=== PATIENT | male | born 1950 | race Caucasian/White ===

== ENCOUNTER 2016-07-05 17:17 | Emergency (ER) | payer BC, MEDICARE ==
[2016-07-05 17:53] VITALS: BP 112/64
--- NOTE | 2016-07-05 18:24 | UC ---
General HPI - HPI Summary HPI Summary: The patient comes in today for: 1. Somnolence, coughing, dizziness, feverish, "I fell down the stairs," vomiting, myalgia: Onset: yesterday. Palliative/provocative: Nothing. Quality: Ache Region: Genalized body aches. Severity: 3/10 Time: Constant. Associated symptoms: Diabetes: He is diabetic who states that his blood sugars have been "250." Home temperature: Not taken. Vomitin-4 times/24 hours. Diarrhea: None. Fall down stairs: He states now that he did not fall down the stairs--he fell next to the furniture. No LOC No headache. No neck pain. He does not know why he fell other than "being dizzy." He took a taxi here to see us. * - History of Current Complaint Chief Complaint: UCDizziness Stated Complaint: VOMITING,DIARRHEA,CHILLS Time Seen by Provider: 07/05/16 17:36 Hx Obtained From: Patient - Allergy/Home Medications Allergies/Adverse Reactions: Allergies Allergy/AdvReac Type Severity Reaction Status Date / Time Latex Allergy RASH, Verified 06/01/12 08:58 IRRITATION Meperidine [From Demerol HCl] AdvReac NIGHTMARES, Verified 08/27/15 06:10 CHILLS, SWEATS PMH/Surg Hx/FS Hx/Imm Hx Previously Healthy: No - "focus problems." Endocrine History Of: Reports: Diabetes - TYPE 1, Dyslipidemia Cardiovascular History Of: Reports: Cardiac Disorders - [place] x 2, quintuple bypass ([place]), Hypertension, Myocardial Infarction Denies: Pacemaker/ICD, Congestive Heart Failure, Atrial Fibrillation, Deep Vein Thrombosis, Bleeding Disorders Respiratory History Of: Denies: COPD, Asthma, Bronchitis, Pneumonia, Pulmonary Embolism GI/ History Of: Denies: Gastroesophageal Reflux, Ulcer, Gastrointestinal Bleed, Gall Bladder Disease, Kidney Stones, Diverticulitis, Renal Disease, Urosepsis Neurological History Of: Reports: CVA Denies: TIA, Dementia, Seizures, Migraine Psychological History Of: Reports: Anxiety, Depression Denies: Bipolar Disorder, Schizophrenia, Post Traumatic Stress Disorder Cancer History Of: Denies: Lung Cancer, Colorectal Cancer, Breast Cancer, Prostate Cancer, Cervical Cancer Other History Of: Negative For: HIV, Hepatitis B, Hepatitis C, Anticoagulant Therapy - Plavix. - Surgical History Surgical History: Yes Surgery Procedure, Year, and Place: 2009 LEFT KNEE ARTHROSCOPY-[facility]GER FINGER RELEASE/2006 CATARACT REPAIR,[facility]DE[facility], BYPASS SURGERY 30 YEARS AGO [facility]. BILATERAL CARPAL TUNNEL SURGERY, [facility]. 2010 LEFT KNEE ARTHROSCOPY, [facility]. 2010 LEFT EYE VITRECTOMY, [place] - Family History Known Family History: Positive: Cardiac Disease, Hypertension - Social History Occupation: Unemployed, Disabled Alcohol Use: None Substance Use Type: None Smoking Status (MU): Former Smoker Review of Systems Constitutional: Negative Skin: Negative Eyes: Negative ENT: Negative Respiratory: Negative Cardiovascular: Negative Gastrointestinal: Vomiting Genitourinary: Negative All Other Systems Reviewed And Are Negative: Yes Physical Exam Triage Information Reviewed: Yes Completion Of Physical Exam Limited Due To: Altered Mental Status - The patient is somnolent, but is able to carry on a conversation. However, he needs constant focusing to answer history questions. Appearance: Well-Appearing, No Pain Distress, Well-Nourished Vital Signs: Initial Vital Signs Temp 99.8 F 07/05/16 17:46 Pulse 101 07/05/16 17:46 Resp 16 07/05/16 17:46 BP 112/64 07/05/16 17:46 Pulse Ox 100 07/05/16 17:46 Vital Signs Reviewed: Yes Eyes: Positive: Conjunctiva Clear. Negative: Discharge ENT: Positive: Hearing grossly normal, Other: - Did not smell any acetone-like smell on breath.. Negative: Pharyngeal erythema, Nasal congestion, TM bulging, TM dull, TM red, Tonsillar swelling, Tonsillar exudate Dental: Negative: Gross Decay/Caries @, Dental Fracture @ Neck: Positive: Supple, Nontender, No Lymphadenopathy. Negative: Nuchal Rigidity Respiratory: Positive: Chest non-tender, Lungs clear, No respiratory distress, No accessory muscle use. Negative: Crackles, Wheezing Cardiovascular: Positive: RRR, No Murmur Abdomen Description: Positive: Nontender, No Organomegaly, Soft, Other: - Insulin pump present.. Negative: Distended, Guarding, Peritoneal Signs Musculoskeletal: Positive: Strength Intact, ROM Intact Neurological: Positive: Alert, Muscle Tone Normal Psychological: Positive: Age Appropriate Behavior, Consolable Skin: Negative: rashes, breakdown Diagnostics - Laboratory Diagnostic Studies Completed/Ordered: Random blood sugar (unmeasurable with our machine going up to 444). He is not able to give us a urine. Course/Dx - Differential Dx - Multi-Symptom Provider Diagnoses: Somnolence possibly related to metabolic causes (DKA vs hyperosmotic). Uncontrolled diabetes. Nausea/vomiting. - Physician Notifications Discussed Patient Care With: Brian Bonds. Time Discussed With Above Provider: 18:36 Discharge - Discharge Plan Condition: Stable Disposition: TRANS HIGHER LVL OF CARE FAC
== END 2016-07-05 19:14 | disposition short-term general hospital (02) ==
LOC: UCEAST 17:17
DX: R40.0 Somnolence (principal); R11.2 Nausea with vomiting, unspecified; E10.65 Type 1 diabetes mellitus with hyperglycemia; I25.2 Old myocardial infarction; I10 Essential (primary) hypertension; Z95.1 Presence of aortocoronary bypass graft; Z88.5 Allergy status to narcotic agent; Z98.49 Cataract extraction status, unspecified eye; Z87.891 Personal history of nicotine dependence
CPT/HCPCS: 99203; G0463

== ENCOUNTER 2016-07-05 19:09 | Inpatient (IN) | payer BC, MEDICARE ==
[2016-07-05] MEDS ORDERED: NS 0.9% 1000 ML* 1,000 ML IV ONE (19:59)
[2016-07-05] MEDS ORDERED: Insulin REGULAR(*) 1 UNITS UNIT IV ONE (19:59)
--- NOTE | 2016-07-05 20:25 | ED ---
Pedrito Arrieta Michael, scribed for Danilo Holcomb MD on 07/05/16 at 2003 . HPI Diabetic - HPI Summary HPI Summary: 66 y/o was BIBA to the ED presenting with hyperglycemia that started one day ago. The pt's was bedside and she reports that he had a blood glucose of over 400, and he has an Humalog insulin pump he regularly takes. He also c/o a cough, and has been around his daughter who was recently dx with influenza B. The PMHx is significant for DM. 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, Medical Records Onset/Duration: Sudden Onset Timing: Constant Severity Initially: Moderate Severity Currently: Mild Character: Alert Aggravating: Nothing Associated Signs & Symptoms: Cough - and hyperglycemia - Allergies/Home Medications Allergies/Adverse Reactions: Allergies Allergy/AdvReac Type Severity Reaction Status Date / Time Latex Allergy RASH, Verified 07/05/16 22:20 IRRITATION Meperidine [From Demerol HCl] AdvReac NIGHTMARES, Verified 07/05/16 22:20 CHILLS, SWEATS PMH/Surg Hx/FS Hx/Imm Hx Endocrine/Hematology History: Reports: Hx Diabetes - TYPE 1 Denies: Hx Anticoagulant Therapy - Plavix., Hx Thyroid Disease Cardiovascular History: Reports: Hx Angina, Hx Coronary Artery Disease, Hx Hypertension, Hx Myocardial Infarction, Other Cardiovascular Problems/Disorders - CAD/IDDM I Denies: Hx Congestive Heart Failure, Hx Deep Vein Thrombosis, Hx Pacemaker/ ICD Respiratory History: Denies: Hx Asthma, Hx Chronic Obstructive Pulmonary Disease (COPD), Hx Lung Cancer, Hx Pneumonia, Hx Pulmonary Embolism GI History: Denies: Hx Gall Bladder Disease, Hx Gastrointestinal Bleed, Hx Ulcer, Hx Urosepsis History: Denies: Hx Kidney Stones, Hx Renal Disease Musculoskeletal History: Reports: Other Musculoskeletal History - MENISCAL TEAR LEFT KN EE Sensory History: Reports: Hx Cataracts, Hx Contacts or Glasses - GLASSES Denies: Hx Hearing Aid Opthamlomology History: Reports: Hx Cataracts, Hx Contacts or Glasses - GLASSES Neurological History: Reports: Other Neuro Impairments/Disorders - TAKING RITALIN TO STAY FOCUS Denies: Hx Dementia, Hx Migraine, Hx Seizures, Hx Transient Ischemic Attacks (TIA) Psychiatric History: Reports: Hx Anxiety, Hx Depression Denies: Hx Panic Disorder, Hx Schizophrenia, Hx Bipolar Disorder - Surgical History Surgery Procedure, Year, and Place: 2009 LEFT KNEE ARTHROSCOPY-[facility]IGGER FINGER RELEASE/2006 CATARACT REPAIR,[facility] APPENDECTOM[facility], BYPASS SURGERY 30 YEARS AGO [facility]. BILATERAL CARPAL TUNNEL SURGERY, [facility]. 2009 LEFT KNEE ARTHROSCOPY, [facility]. 2010 LEFT EYE VITRECTOMY, [place] Hx Anesthesia Reactions: No Infectious Disease History: Reports: Hx Shingles - treated Denies: Hx Hepatitis, Hx Human Immunodeficiency Virus (HIV), Traveled Outside the in Last 30 Days - Family History Known Family History: Positive: Cardiac Disease, Hypertension - Social History Occupation: Retired Lives: With Family Alcohol Use: None Substance Use Type: Reports: None Hx Tobacco Use: Yes Smoking Status (MU): Former Smoker Review of Systems Positive: Other - hyperglycemia Positive: Cough All Other Systems Reviewed And Are Negative: Yes Physical Exam Triage Information Reviewed: Yes Vital Signs Reviewed: Yes Appearance: Positive: Ill-Appearing Skin: Positive: Warm, Dry Head/Face: Positive: Normal Head/Face Inspection Eyes: Positive: QUINTIN ENT: Positive: Hearing grossly normal Neck: Positive: Supple Respiratory/Lung Sounds: Positive: Clear to Auscultation, Breath Sounds Present Cardiovascular: Positive: Tachycardia Abdomen Description: Positive: Nontender, Soft Bowel Sounds: Positive: Present Musculoskeletal: Positive: Strength/ROM Intact Neurological: Positive: Sensory/Motor Intact, Alert, Oriented to Person Place, Time Psychiatric: Positive: Affect/Mood Appropriate Diagnostics - Laboratory Result Diagrams: 07/05/16 20:55 07/05/16 21:47 Lab Statement: Any lab studies that have been ordered have been reviewed, and results considered in the medical decision making process. - Radiology CXR Xray Interpretation: No Acute Changes Radiology Interpretation Completed By: Radiologist - EKG EK EKG Rhythm: Sinus Tachycardia - 100 bpm EKG Interpretation: LVH Re-Evaluation - Re-Evaluation First Eval Change: Improved Diabetic Course/Dx - Course Course Of Treatment: Discussed pt care with Dr. Torres (Hospitalist) at 2150. Pt is accepted as an admission. - Diagnoses Provider Diagnoses: DKA (diabetic ketoacidoses) - Physician Notifications Instructed by Provider To: Admit As Inpatient - Critical Care Time Critical Care Time: 30-74 min Discharge - Discharge Plan Condition: Fair Disposition: ADMITTED TO [facility] The documentation as recorded by the [email or web address] Michael accurately reflects the service I personally performed and the decisions made by me, Danilo Holcomb MD.
--- NOTE | 2016-07-05 20:45 | RAD ---
HISTORY: Chest pain COMPARISONS: August 27, 2015 VIEWS: 2: Frontal dual-energy and lateral views of the chest. FINDINGS: CARDIOMEDIASTINAL SILHOUETTE: The cardiomediastinal silhouette is normal. JELENA: The jelena are normal. PLEURA: The costophrenic angles are sharp. No pleural abnormalities are noted. LUNG PARENCHYMA: The lungs are clear. ABDOMEN: The upper abdomen is clear. There is no subphrenic gas. BONES AND SOFT TISSUES: The patient is status post median sternotomy OTHER: None. IMPRESSION: NO ACTIVE CARDIOPULMONARY DISEASE.
[2016-07-05 21:04] LABS: Hematocrit 38 % (42-52); Hemoglobin 12.1 g/dl (14.0-18.0); Mean Corpuscular HGB Conc 32 g/dl (31-36); Mean Corpuscular Hemoglobin 29 pg (27-31); Mean Corpuscular Volume 89 fL (80-94); Mean Platelet Volume 9 um3 (7.4-10.4); Red Blood Count 4.22 10^6/ul (4.0-5.4); Red Cell Distribution Width 14 % (10.5-15); White Blood Count 20.5 10^3/ul (3.5-10.8)
[2016-07-05 21:05] LABS: Add Diff/Slide Review? Manual Diff Added; Comments Flag Yes
[2016-07-05 21:08] LABS: Urine Bilirubin Negative (Negative); Urine Glucose 3+(>=500 mg/dL) (Negative); Urine Nitrite Negative (Negative)
[2016-07-05 21:55] LABS: Immature Granulocytes 9 % (0-9); Neutrophil % 86 % (38-83); RBC Morphology Normal (Normal)
[2016-07-05 21:55] LABS: PCO2 Arterial 21 mmHg (35-45)
[2016-07-05 22:08] LABS: Albumin 3.8 g/dL (3.2-5.2); BUN/Creatinine Ratio 26.7 (8-20); C Reactive Protein 22.95 mg/L (< 5.00); Calcium 8.5 mg/dL (8.6-10.3); EGFR African American 81.5 (>60); EGFR Non-African American 63.4 (>60); Globulin 1.9 g/dL (2-4); Magnesium 1.8 mg/dL (1.9-2.7); Total Bilirubin 0.7 mg/dL (0.2-1.0); Total Protein 5.7 g/dL (6.4-8.9)
[2016-07-05 22:39] LABS: Potassium 4.7 mmol/L (3.5-5.0)
--- NOTE | 2016-07-05 22:55 | HP ---
H&P (Free Text) History and Physical: PCP: Albert Chaudhary MD Date/Time of Evaluation: 07/05/2016 2255 CC: malaise, generalized weakness HPI: Mr Lloyd is a 66YO male HX IDDM [id number] who reports having had his influenza vaccine this season, but was exposed recently. He began feeling poorly last Tue- with increasing fatigue, generalized weakness, & malaise which progressed to subjective F/C over the weekend and culminated last night with a fall when he got up to use the restroom. He recalls falling & landing, denies head injury & LOC. He felt too weak and nauseous to get up and so slept on the floor. This AM he had an episode of emesis, but denies black or bloody content. His PO intake has been poor during this timeframe. He reports dry cough and SOB with coughing fits that resolves promptly afterwards, but no chest pain, palpitations, light-headedness, change in bowels, focal W/N/T, change in speech/swallow/vision, or other issues. He denies prior episode of DKA. Evaluation reveals DKA w/ pH 2.7, anion gap of 24, and serum CO2 of 12. WBCs are 20k 86% neutrophils & 9% bands. Creatinine is 1.16 (baseline 0.7). Corrected serum Na+ is 135. Lactic acid is 3.2. Mg++ is 1.8. UA is negative for infection. ECG and CXR are benign. PMedHx IDDM CAD/5vCABG CVA HTN HLD Allergies Latex Allergy (Verified 07/05/16 22:20) RASH, IRRITATION Meperidine [From Demerol HCl] Adverse Reaction (Verified 07/05/16 22:20) NIGHTMARES, CHILLS, SWEATS Ambulatory Orders Alprazolam [Xanax] 0.5 mg PO BEDTIME PRN 05/25/12 Aspirin 81 mg PO QAM 05/25/12 Atorvastatin* [Lipitor*] 20 mg PO QAM 05/25/12 Clopidogrel Bisulfate [Clopidogrel] 75 mg PO QAM 05/25/12 Diltiazem HCl Coated Beads [Diltiazem Cd] 240 mg PO QAM 05/25/12 Hydrochlorothiazide 50 mg PO QAM 05/25/12 Insulin Lispro [Humalog] 30 unit SUBCUT SEE INSTRUCTIONS 05/25/12 Methylphenidate HCl [Ritalin] 5 mg PO BID 05/25/12 Telmisartan [Micardis] 80 mg PO QAM 05/25/12 Venlafaxine CAP (NF) [Effexor CAP (NF)] 3 tab PO QAM 05/25/12 traMADol TAB* [Ultram*] 50 mg PO QID PRN 05/25/12 Cetirizine* [ZyrTEC*] 10 mg PO DAILY 08/27/15 Sertraline* [Zoloft*] 150 mg PO DAILY 08/27/15 diPHENhydraMINE PO* [Benadryl PO*] 25 mg PO QAM 08/27/15 PSurgHx OU cataract extractions 5vCABG appendectomy L knee arthroscopy SocHx: no tobacco, rare alcohol, no recreational drugs; lives with his ; full code status FamHx: positive for DM, HTN, HLD, CAD, CVA ROS: as above, otherwise reviewed and all were negative Constitutional: NAD, normally developed, well-nourished acutely ill appearing male vitals: Vital Signs Temp 37.8 C 07/05/16 20:42 Pulse 103 07/05/16 20:42 Resp 20 07/05/16 22:00 BP 114/48 07/05/16 21:30 Pulse Ox 98 07/05/16 20:42 Intake & Output 07/05/16 07/05/16 07/06/16 11:59 23:59 11:59 Intake Total 1000 Balance 1000 Weight 68.039 kg Intake: IV Fluids 1000 HEENM: atraumatic; sclera/conjunctiva: non-icteric/clear; hearing: clinically intact; oropharynx: clear, mucosa dry Neck: soft tissue: no nuchal rigidity; thyroid: normal Pulmonary: clear to auscultation bilaterally, good aeration, no accessory muscle use CV: TR/RR, normal S1S2, no carotid bruit, no jugular venous distention, 2+ L DP / 1+ RDP/1+ B PT, no edema Abdominal: soft, non-distended, non-tender, no rebound/guarding/rigidity, normoactive bowel sounds, no hepatosplenomegaly or masses, no costovertebral angle tenderness Musculoskeletal: general: moves extremities x4; gait: too acutely ill to safely ambulate Integumental: normal appearance and texture, poor turgor Psychiatric orientation: AA&O to PPS affect: acutely ill appearing mood: cooperative eye contact: fair content: reliable responses: mildly slowed insight: fair Testing: Lab Results 07/05/16 07/05/16 07/05/16 Range/Units 20:55 20:55 20:55 WBC 20.5 H (3.5-10.8) 10^3/ul RBC 4.22 (4.0-5.4) 10^6/ul Hgb 12.1 L (14.0-18.0) g/dl Hct 38 L (42-52) % MCV 89 (80-94) fL MCH 29 (27-31) pg MCHC 32 (31-36) g/dl RDW 14 (10.5-15) % Plt Count 246 (150-450) 10^3/ul MPV 9 (7.4-10.4) um3 Immature Gran % (Auto) 9 (0-9) % Absolute Neuts (auto) 19.1 H (1.5-7.7) 10^3/ul Absolute Lymphs (auto) 0.4 L (1.0-4.8) 10^3/ul Absolute Monos (auto) 0.9 H (0-0.8) 10^3/ul Absolute Eos (auto) 0 (0-0.6) 10^3/ul Absolute Basos (auto) 0.1 (0-0.2) 10^3/ul Absolute Nucleated RBC 0.01 10^3/ul Neutrophils % 86 H (38-83) % Band Neutrophils % 9 H (0-8) % Lymphocytes % 3 L (25-47) % Monocytes % 2 (0-13) % Normal RBC Morphology Normal (Normal) ABG pH (7.35-7.45) ABG pCO2 (35-45) mmHg ABG pO2 (80-100) mmHg ABG HCO3 (19-31) mmol/L ABG O2 Saturation (95-98) % ABG Base Excess (-2.0-2.0) Sodium (133-145) mmol/L Potassium (3.5-5.0) mmol/L Chloride (101-111) mmol/L Carbon Dioxide (22-32) mmol/L Anion Gap (2-11) mmol/L BUN (6-24) mg/dL Creatinine (0.67-1.17) mg/dL Est GFR ( Amer) (>60) Est GFR (Non-Af Amer) (>60) BUN/Creatinine Ratio (8-20) Glucose (70-100) mg/dL Lactic Acid 3.2 H* (0.5-2.0) mmol/L Calcium (8.6-10.3) mg/dL Magnesium (1.9-2.7) mg/dL Total Bilirubin (0.2-1.0) mg/dL AST (13-39) U/L ALT (7-52) U/L Alkaline Phosphatase (34-104) U/L C-Reactive Protein (< 5.00) mg/L Total Protein (6.4-8.9) g/dL Albumin (3.2-5.2) g/dL Globulin (2-4) g/dL Albumin/Globulin Ratio (1-3) Urine Color Yellow Urine Appearance Cloudy Urine pH 5.0 (5-9) Ur Specific [place] 1.018 (1.010-1.030) Urine Protein Negative (Negative) Urine Ketones 2+ H (Negative) Urine Blood Negative (Negative) Urine Nitrate Negative (Negative) Urine Bilirubin Negative (Negative) Urine Urobilinogen Negative (Negative) Ur Leukocyte Esterase Negative (Negative) Urine Glucose 3+(>=500 mg/dl) H (Negative) 07/05/16 07/05/16 Range/Units 21:45 21:47 WBC (3.5-10.8) 10^3/ul RBC (4.0-5.4) 10^6/ul Hgb (14.0-18.0) g/dl Hct (42-52) % MCV (80-94) fL MCH (27-31) pg MCHC (31-36) g/dl RDW (10.5-15) % Plt Count (150-450) 10^3/ul MPV (7.4-10.4) um3 Immature Gran % (Auto) (0-9) % Absolute Neuts (auto) (1.5-7.7) 10^3/ul Absolute Lymphs (auto) (1.0-4.8) 10^3/ul Absolute Monos (auto) (0-0.8) 10^3/ul Absolute Eos (auto) (0-0.6) 10^3/ul Absolute Basos (auto) (0-0.2) 10^3/ul Absolute Nucleated RBC 10^3/ul Neutrophils % (38-83) % Band Neutrophils % (0-8) % Lymphocytes % (25-47) % Monocytes % (0-13) % Normal RBC Morphology (Normal) ABG pH 7.20 L (7.35-7.45) ABG pCO2 21 L (35-45) mmHg ABG pO2 109 H (80-100) mmHg ABG HCO3 10.9 L (19-31) mmol/L ABG O2 Saturation 99.1 H (95-98) % ABG Base Excess -18.0 L (-2.0-2.0) Sodium 128 L (133-145) mmol/L Potassium 4.7 (3.5-5.0) mmol/L Chloride 92 L (101-111) mmol/L Carbon Dioxide 12 L* (22-32) mmol/L Anion Gap 24 H (2-11) mmol/L BUN 31 H (6-24) mg/dL Creatinine 1.16 (0.67-1.17) mg/dL Est GFR ( Amer) 81.5 (>60) Est GFR (Non-Af Amer) 63.4 (>60) BUN/Creatinine Ratio 26.7 H (8-20) Glucose 584 H* (70-100) mg/dL Lactic Acid (0.5-2.0) mmol/L Calcium 8.5 L (8.6-10.3) mg/dL Magnesium 1.8 L (1.9-2.7) mg/dL Total Bilirubin 0.70 (0.2-1.0) mg/dL AST 9 L (13-39) U/L ALT 16 (7-52) U/L Alkaline Phosphatase 74 (34-104) U/L C-Reactive Protein 22.95 H (< 5.00) mg/L Total Protein 5.7 L (6.4-8.9) g/dL Albumin 3.8 (3.2-5.2) g/dL Globulin 1.9 L (2-4) g/dL Albumin/Globulin Ratio 2.0 (1-3) Urine Color Urine Appearance Urine pH (5-9) Ur Specific [place] (1.010-1.030) Urine Protein (Negative) Urine Ketones (Negative) Urine Blood (Negative) Urine Nitrate (Negative) Urine Bilirubin (Negative) Urine Urobilinogen (Negative) Ur Leukocyte Esterase (Negative) Urine Glucose (Negative) ECG, personally reviewed: sinus tachycardia rate 100, no ischemia CXR, personally reviewed: IMPRESSION: NO ACTIVE CARDIOPULMONARY DISEASE. Impression: 66M presenting with DKA, likely precipitated by infection DIAGNOSIS & PLAN Primary DKA : ICU monitoring : check A1c : PO water only : insulin R 10unit IV bolus given in ED, start insulin GTT : close monitoring of electrolytes : Q1H glucometry : aggressive IVFs : telemetry : supplemental oxygen : supportive care infection, suspect viral : check rapid influenza : blood CX : empiric piperacillin/tazobactam fall, extended floor time : check total CK to evaluate for rhabdomyolysis Secondary CAD/5vCABG : continue aspirin & clopidogrel HX CVA : continue aspirin HTN : hold anti-hypertensives in current setting & monitor HLD : continue atorvastatin depression : continue venlafaxine & sertraline Admission Rational: ICU admission for DKA & suspected infection, inappropriate for outpatient setting DVTp: heparin SQ & SCDs Code Status: full HCP:
[2016-07-06] MEDS ORDERED: PROCHLORPERAZINE INJ 5 MG/ML 2 ML VIAL IV PRN (00:38)
[2016-07-06] MEDS ORDERED: Ondansetron INJ* 2 MG/ML VIAL IV PRN (00:38)
[2016-07-06] MEDS ORDERED: CMCS: Melatonin (NF) 3 MG TAB PO PRN (00:38)
[2016-07-06] MEDS ORDERED: NS 0.9% 1000 ML* 1,000 ML IV SCH (00:45)
[2016-07-06] MEDS: NS 0.9% 1000 ML* 3,000 ML IV SCH ×3 (00:50→03:01)
[2016-07-06] MEDS ORDERED: Piperac/Tazob 3.375 gm in NS* 3.375 GM/100 ML BAG IVPB ONE (01:30)
[2016-07-06] MEDS: Pantoprazole IV* 40 MG IV SCH ×2 (01:35→08:55)
[2016-07-06 02:30] LABS: Venous Bicarbonate HCO3 9.6 mmol/L (24-28)
[2016-07-06 02:37] LABS: Potassium 4.2 mmol/L (3.5-5.0)
[2016-07-06 02:38] LABS: BUN/Creatinine Ratio 29.3 (8-20); Calcium 7.7 mg/dL (8.6-10.3); EGFR African American 76.2 (>60); EGFR Non-African American 59.2 (>60)
[2016-07-06] MEDS: Acetaminophen TAB* 325 MG PO PRN (04:01)
[2016-07-06] MEDS ORDERED: Piperac/Tazob 3.375 gm in NS* 3.375 GM/100 ML BAG IVPB SCH (05:30)
[2016-07-06 06:48] LABS: Venous Bicarbonate HCO3 17.4 mmol/L (24-28)
[2016-07-06 06:53] LABS: Hematocrit 30 % (42-52); Hemoglobin 9.9 g/dl (14.0-18.0); Mean Corpuscular HGB Conc 33 g/dl (31-36); Mean Corpuscular Hemoglobin 29 pg (27-31); Mean Corpuscular Volume 87 fL (80-94); Mean Platelet Volume 8 um3 (7.4-10.4); Red Blood Count 3.47 10^6/ul (4.0-5.4); Red Cell Distribution Width 13 % (10.5-15); White Blood Count 15.4 10^3/ul (3.5-10.8)
[2016-07-06 07:02] LABS: BUN/Creatinine Ratio 31.3 (8-20); Calcium 7.4 mg/dL (8.6-10.3); EGFR African American 84.9 (>60); Magnesium 1.5 mg/dL (1.9-2.7); Potassium 3.4 mmol/L (3.5-5.0)
--- NOTE | 2016-07-06 07:39 | PN ---
Subjective - Subjective Reason for Note: Progress Note History: I reviewed Marck Rodríguez's presentation with the patient and Dr. Torres's admitting history and physical. He has had a cough for several days. He changed his insulin pump (he thinks) on Tuesday. He was weak and fell in the night and stayed on the floor. He presented with moderate diabetic ketoacidosis. He is receiving IVF (more than 5 liters thus far) and IV insulin. Influenza is ruled out. This morning he denies any pain. He continues to have a dry, non productive cough. He denies nausea and thinks he could eat/drink. He is no longer wearing his insulin pump. He has labile glycemic control, but his last A1c was 7.7%. He has no other acute illnesses at present - in particular no infections/ulcers. Active Problems: Active Problems Acute bronchitis (Acute) J20.9 Diabetic ketoacidosis (Acute) E13.10 Fall (Acute) Type 1 diabetes mellitus with diabetic retinopathy (Acute) E10.319 Coronary artery disease (Chronic) I25.10 Depression (Chronic) F32.9 Essential hypertension (Chronic) I10 History of CVA (cerebrovascular accident) (Chronic) Z86.73 Hypercholesterolemia (Chronic) E78.00 Insulin pump status (Chronic) Z96.41 S/P CABG x 5 (Chronic) Z95.1 Current Medications: Current Medications Acetaminophen (Tylenol Tab*) 650 mg PO Q6H PRN PRN Reason: FEVER/PAIN Last Admin: 07/06/16 04:01 Dose: 650 mg Aspirin (Aspirin Ec Low Dose*) 81 mg PO QAM [facility] Atorvastatin Calcium (Lipitor*) 20 mg PO QAM [facility] Clopidogrel Bisulfate (Plavix Tab*) 75 mg PO QAM [facility] Docusate Sodium (Colace Cap*) 200 mg PO BID [facility] Heparin Sodium (Porcine) (Heparin Vial(*)) 5,000 units SUBCUT Q8HR [facility] Sodium Chloride (Ns 0.9% 1000 Ml*) 3,000 mls @ 0 mls/hr IV WIDE OPEN [facility] PRN Reason: Wide Open Stop: 07/07/16 00:46 Last Admin: 07/06/16 03:01 Dose: 999 mls/hr Sodium Chloride (Ns 0.9% 1000 Ml*) 1,000 mls @ 250 mls/hr IV PER RATE [facility] Last Admin: 07/06/16 04:02 Dose: 250 mls/hr Piperacillin Sod/Tazobactam Sod (Zosyn 3.375 Gm In Ns Premix*) 3.375 gm in 100 mls @ 25 mls/hr IVPB Q8H [facility] Last Admin: 07/06/16 05:35 Dose: 25 mls/hr Insulin Human Regular 100 (units/ Sodium Chloride) 100 mls @ 6.8 mls/hr IV .PER INITIAL RATE [facility] PRN Reason: 0.1 UNITS/KG/HR Last Admin: 07/06/16 07:03 Dose: 13 mls/hr Melatonin (Melatonin (Nf)) 3 mg PO BEDTIME PRN; Protocol PRN Reason: Sleep Methylphenidate HCl (Ritalin Tab*) 5 mg PO 0900,1800 [facility] Ondansetron HCl (Zofran Inj*) 4 mg IV Q6H PRN PRN Reason: NAUSEA Pantoprazole Sodium (Protonix Iv*) 40 mg IV DAILY [facility] Last Admin: 07/06/16 01:35 Dose: 40 mg Prochlorperazine Edisylate (Compazine Inj*) 10 mg IV Q6H PRN PRN Reason: NAUSEA Sertraline HCl (Zoloft*) 150 mg PO DAILY [facility] Tramadol HCl (Ultram*) 50 mg PO QID PRN PRN Reason: PAIN - MODERATE Venlafaxine HCl (Effexor Xr Cap*) 225 mg PO QAM [facility] PRN Reason: Protocol - Review of Systems Constitutional Symptoms: Yes: Fatigue, No: Fever Pulmonary: Positive: Cough Negative: Sputum, Hemoptysis, Respiratory Distress Cardiology: Negative: Chest Pain, Palpitations, Swelling of Ankles Gastroenterology: Positive: Constipation Negative: Abdominal Pain, Nausea, Vomiting Genital - Urinary: Positive: Polyuria Negative: Dysuria Home Medications: Home Medications Medication Instructions Recorded Confirmed Type Alprazolam [Xanax] 0.5 mg PO BEDTIME PRN 05/25/12 07/05/16 History Aspirin 81 mg PO QAM 05/25/12 07/05/16 History Atorvastatin* [Lipitor*] 20 mg PO QAM 05/25/12 07/05/16 History Clopidogrel Bisulfate [Clopidogrel] 75 mg PO QAM 05/25/12 07/05/16 History Diltiazem HCl Coated Beads 240 mg PO QAM 05/25/12 07/05/16 History [Diltiazem Cd] Hydrochlorothiazide 50 mg PO QAM 05/25/12 07/05/16 History Insulin Lispro [Humalog] 30 unit SUBCUT SEE INSTRUCTIONS 05/25/12 07/05/16 History Methylphenidate HCl [Ritalin] 5 mg PO BID 05/25/12 07/05/16 History Telmisartan [Micardis] 80 mg PO QAM 05/25/12 07/05/16 History Venlafaxine CAP (NF) [Effexor CAP 3 tab PO QAM 05/25/12 07/05/16 History (NF)] traMADol TAB* [Ultram*] 50 mg PO QID PRN 05/25/12 07/05/16 History Cetirizine* [ZyrTEC*] 10 mg PO DAILY 08/27/15 07/05/16 History Sertraline* [Zoloft*] 150 mg PO DAILY 08/27/15 07/05/16 History diPHENhydraMINE PO* [Benadryl PO*] 25 mg PO QAM 08/27/15 07/05/16 History Allergies: Allergies Allergy/AdvReac Type Severity Reaction Status Date / Time Latex Allergy RASH, Verified 07/05/16 22:20 IRRITATION Meperidine [From Demerol HCl] AdvReac NIGHTMARES, Verified 07/05/16 22:20 CHILLS, SWEATS Objective - Vital Signs Vital Signs: Vital Signs 07/05/16 07/06/16 07/06/16 23:49 00:00 00:01 Temperature 100.1 F Pulse Rate 100 Respiratory 21 21 22 Rate Blood Pressure 106/40 80/52 (mmHg) O2 Sat by Pulse 100 Oximetry 07/06/16 07/06/16 07/06/16 00:02 00:18 00:34 Temperature Pulse Rate 98 Respiratory 27 19 Rate Blood Pressure 104/49 86/47 106/40 (mmHg) O2 Sat by Pulse 100 Oximetry 07/06/16 07/06/16 07/06/16 00:45 01:00 01:04 Temperature Pulse Rate 102 106 Respiratory 20 22 21 Rate Blood Pressure 107/43 119/46 (mmHg) O2 Sat by Pulse 100 100 Oximetry 07/06/16 07/06/16 07/06/16 01:15 01:30 01:45 Temperature Pulse Rate 103 105 107 Respiratory 23 25 22 Rate Blood Pressure 119/61 111/82 113/49 (mmHg) O2 Sat by Pulse 100 100 100 Oximetry 07/06/16 07/06/16 07/06/16 02:00 02:15 02:30 Temperature Pulse Rate 107 104 102 Respiratory 20 22 23 Rate Blood Pressure 116/47 121/51 106/48 (mmHg) O2 Sat by Pulse 100 100 100 Oximetry 07/06/16 07/06/16 07/06/16 02:45 03:00 03:30 Temperature Pulse Rate 101 98 98 Respiratory 21 18 21 Rate Blood Pressure 97/41 101/60 105/49 (mmHg) O2 Sat by Pulse 100 100 100 Oximetry 07/06/16 07/06/16 07/06/16 04:00 04:30 05:00 Temperature 101.1 F Pulse Rate 97 95 95 Respiratory 22 21 18 Rate Blood Pressure 105/44 99/44 94/42 (mmHg) O2 Sat by Pulse 100 100 98 Oximetry 07/06/16 07/06/16 07/06/16 05:30 06:00 07:00 Temperature Pulse Rate 95 94 94 Respiratory 20 14 18 Rate Blood Pressure 100/47 100/47 97/42 (mmHg) O2 Sat by Pulse 99 97 98 Oximetry 07/06/16 07:29 Temperature 100.1 F Pulse Rate Respiratory Rate Blood Pressure (mmHg) O2 Sat by Pulse Oximetry - Intake and Output Intake and Output: Intake & Output 07/03/16 07/04/16 07/05/16 07/06/16 11:59 11:59 11:59 11:59 Intake Total 4015 Balance 4015 Weight 150 lb 9.211 oz Intake: IV Fluids 3404 NS (0.9%) 3380 NS KVO 24 IVPB 100 NS KVO 100 Medicated IV 71 CC - Insulin 71 Oral 440 Intake and Output Start: 07/05/16 23: 49 Freq: 06,14,22 Status: Active Document 07/06/16 06:00 [id number] (Rec: 07/06/16 06:12 [id number]) - Physical Exam General: No Cyanosis, Yes Anemia, No Jaundice, No Lymphadenopathy, No Clubbing Eye Exam: bilateral: EOMI Lungs and Chest: Yes: Chest Expansion Full, Chest Expansion Symetrica, Percussion Note Resonant, Vessicular Breath Sounds, Other - Paroxysmal, dry "barking" cough. No: Crackles, Wheezes, Respiratory Distress, Use of Accessory Muscles Heart Rate and Rhythm: Regular JVP: Elevated - +6 c, Additional Cardiovascular: Yes: Normal Heart Sounds, Present Pedal Pulse. No: Heart Murmur, Pedal Edema Abdominal Exam: Yes: Soft, Bowel Sounds Present - diminished. No: Distention, Rigidity, Abdominal Mass, Hepatomegaly, Abdominal Tenderness - Extremities Cranial Nerves II-XII Intact: Yes Limbs: Normal Power, Normal Tone - Neuro Orientation: A/O x3 Speech: Normal - Slow, but able to express himself Results - Results Lab Results: Laboratory Results - last 24 hr 07/06/16 07/06/16 07/06/16 00:31 00:36 01:04 WBC RBC Hgb Hct MCV MCH MCHC RDW Plt Count MPV Neut % (Auto) Lymph % (Auto) [place] % (Auto) Eos % (Auto) Baso % (Auto) Absolute Neuts (auto) Absolute Lymphs (auto) Absolute Monos (auto) Absolute Eos (auto) Absolute Basos (auto) Absolute Nucleated RBC Nucleated RBC % VBG pH VBG pCO2 VBG pO2 VBG HCO3 VBG O2 Saturation VBG Base Excess Sodium Potassium Chloride Carbon Dioxide Anion Gap BUN Creatinine Est GFR ( Amer) Est GFR (Non-Af Amer) BUN/Creatinine Ratio Glucose 627 H* POC Glucose (mg/dL) > 444 H* Lactic Acid Calcium Magnesium Influenza A (Rapid) Negative Influenza B (Rapid) Negative 07/06/16 07/06/16 07/06/16 02:05 02:09 02:10 WBC RBC Hgb Hct MCV MCH MCHC RDW Plt Count MPV Neut % (Auto) Lymph % (Auto) [place] % (Auto) Eos % (Auto) Baso % (Auto) Absolute Neuts (auto) Absolute Lymphs (auto) Absolute Monos (auto) Absolute Eos (auto) Absolute Basos (auto) Absolute Nucleated RBC Nucleated RBC % VBG pH 7.12 L VBG pCO2 27 L VBG pO2 37 VBG HCO3 9.6 L VBG O2 Saturation 74.6 VBG Base Excess -19.1 L Sodium Potassium Chloride Carbon Dioxide Anion Gap BUN Creatinine Est GFR ( Amer) Est GFR (Non-Af Amer) BUN/Creatinine Ratio Glucose POC Glucose (mg/dL) > 444 H* Lactic Acid 5.0 H* Calcium Magnesium Influenza A (Rapid) Influenza B (Rapid) 07/06/16 07/06/16 07/06/16 02:11 03:06 03:10 WBC RBC Hgb Hct MCV MCH MCHC RDW Plt Count MPV Neut % (Auto) Lymph % (Auto) [place] % (Auto) Eos % (Auto) Baso % (Auto) Absolute Neuts (auto) Absolute Lymphs (auto) Absolute Monos (auto) Absolute Eos (auto) Absolute Basos (auto) Absolute Nucleated RBC Nucleated RBC % VBG pH VBG pCO2 VBG pO2 VBG HCO3 VBG O2 Saturation VBG Base Excess Sodium 131 L Potassium 4.2 Chloride 98 L Carbon Dioxide 8 L* Anion Gap 25 H BUN 36 H Creatinine 1.23 H Est GFR ( Amer) 76.2 Est GFR (Non-Af Amer) 59.2 BUN/Creatinine Ratio 29.3 H Glucose 509 H* 452 H POC Glucose (mg/dL) > 444 H* Lactic Acid Calcium 7.7 L Magnesium Influenza A (Rapid) Influenza B (Rapid) 07/06/16 07/06/16 07/06/16 04:14 05:00 06:00 WBC RBC Hgb Hct MCV MCH MCHC RDW Plt Count MPV Neut % (Auto) Lymph % (Auto) [place] % (Auto) Eos % (Auto) Baso % (Auto) Absolute Neuts (auto) Absolute Lymphs (auto) Absolute Monos (auto) Absolute Eos (auto) Absolute Basos (auto) Absolute Nucleated RBC Nucleated RBC % VBG pH VBG pCO2 VBG pO2 VBG HCO3 VBG O2 Saturation VBG Base Excess Sodium 133 Potassium 3.4 L Chloride 104 Carbon Dioxide 18 L Anion Gap 11 BUN 35 H Creatinine 1.12 Est GFR ( Amer) 84.9 Est GFR (Non-Af Amer) 66.0 BUN/Creatinine Ratio 31.3 H Glucose 330 H POC Glucose (mg/dL) 418 H* 395 H Lactic Acid Calcium 7.4 L Magnesium 1.5 L Influenza A (Rapid) Influenza B (Rapid) 07/06/16 07/06/16 07/06/16 06:00 06:00 06:00 WBC 15.4 H RBC 3.47 L Hgb 9.9 L Hct 30 L MCV 87 MCH 29 MCHC 33 RDW 13 Plt Count 168 MPV 8 Neut % (Auto) 85.3 H Lymph % (Auto) 7.8 L [place] % (Auto) 6.8 Eos % (Auto) 0 Baso % (Auto) 0.1 Absolute Neuts (auto) 13.2 H Absolute Lymphs (auto) 1.2 Absolute Monos (auto) 1.1 H Absolute Eos (auto) 0 Absolute Basos (auto) 0 Absolute Nucleated RBC 0.01 Nucleated RBC % 0 VBG pH 7.29 L VBG pCO2 34 L VBG pO2 51 H VBG HCO3 17.4 L VBG O2 Saturation 91.0 H VBG Base Excess -9.4 L Sodium Potassium Chloride Carbon Dioxide Anion Gap BUN Creatinine Est GFR ( Amer) Est GFR (Non-Af Amer) BUN/Creatinine Ratio Glucose POC Glucose (mg/dL) Lactic Acid 2.8 H* Calcium Magnesium Influenza A (Rapid) Influenza B (Rapid) 07/06/16 07/06/16 06:03 07:07 WBC RBC Hgb Hct MCV MCH MCHC RDW Plt Count MPV Neut % (Auto) Lymph % (Auto) [place] % (Auto) Eos % (Auto) Baso % (Auto) Absolute Neuts (auto) Absolute Lymphs (auto) Absolute Monos (auto) Absolute Eos (auto) Absolute Basos (auto) Absolute Nucleated RBC Nucleated RBC % VBG pH VBG pCO2 VBG pO2 VBG HCO3 VBG O2 Saturation VBG Base Excess Sodium Potassium Chloride Carbon Dioxide Anion Gap BUN Creatinine Est GFR ( Amer) Est GFR (Non-Af Amer) BUN/Creatinine Ratio Glucose POC Glucose (mg/dL) 362 H 300 H Lactic Acid Calcium Magnesium Influenza A (Rapid) Influenza B (Rapid) Radiology Results: Patient Name: MARCK TORRES Medical Record#: [id number] Ordering Physician: Danilo Holcomb MD Acct.#: [id number] : 1950 Age: 66 Sex: M Location: EMERGENCY DEPARTMENT Exam Date: 07/05/161999 ADM Status: REG ER Order Information: CHEST PA & LAT 2 VWS Accession Number: [id number] CPT: 31191 HISTORY: Chest pain COMPARISONS: August 27, 2015 VIEWS: 2: Frontal dual-energy and lateral views of the chest. FINDINGS: CARDIOMEDIASTINAL SILHOUETTE: The cardiomediastinal silhouette is normal. FAROOQ: The farooq are normal. PLEURA: The costophrenic angles are sharp. No pleural abnormalities are noted. LUNG PARENCHYMA: The lungs are clear. ABDOMEN: The upper abdomen is clear. There is no subphrenic gas. BONES AND SOFT TISSUES: The patient is status post median sternotomy OTHER: None. IMPRESSION: NO ACTIVE CARDIOPULMONARY DISEASE. <Electronically signed by Jose Angel Kemp MD in OV> 07/05/162040 Dictated By: Jose Angel Kemp MD Dictated Date/Time: 07/05/162040 Transcribed Date/Time: 07/05/162040 Copy to: CC:Jason Chaudhary MD; Danilo Holcomb MD Imaging - [facility] - [facility] [address] [place] [address] ph [phone]) ph ([phone]) ph ([phone]) 1 of EKG Report: 07/05/16 21:05 SR 100 MD 155 QTc 439 QRS axis Low voltage limb leads. No acute STT changes Assessment - Problem List Assessment: Patient Problems Acute bronchitis (Acute) Diabetic ketoacidosis (Acute) Fall (Acute) Type 1 diabetes mellitus with diabetic retinopathy (Acute) Coronary artery disease (Chronic) Depression (Chronic) Essential hypertension (Chronic) History of CVA (cerebrovascular accident) (Chronic) Hypercholesterolemia (Chronic) Insulin pump status (Chronic) S/P CABG x 5 (Chronic) Plan: Type 1 diabetes mellitus with diabetic retinopathy (Acute)Diabetic ketoacidosis (Acute) Insulin pump status (Chronic) He likely has 2 factors accounting for his presentation - a viral bronchitis and an insulin pump infusion set malfunction. He is now recovering from his DKA, but he remains hyperglycemic and mildly acidotic. His JVP is now visible, but he remains hypotensive. We will need to watch for volume overload as he is likely to develop CHF readily. He states he is able to eat/drink. Insulin pump basal rates: Medtronic 523 insulin pump settings: basal rate (u/hr) 12 am -.75 9am 0.925 ins:CHO 12am 8 7am 7 12pm 8 ISF 50 target day 100 to 120 night 100 to 150 ins dur 4 hrs He doesn't have his insulin pump infusion sets/reservoirs with him. 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 Acute bronchitis (Acute) I think this is viral. He has no infiltrates on his CXR. His CRP is not elevated. I don't think he requires antibacterials. I will stop his piperacillin/tazobactam. I will follow his CRP/WBC Fall (Acute) He has hematomas, but no evidence of fractures/pain. He was on the floor overnight. His CK was not elevated, making rhabdomyolysis unlikely Coronary artery disease (Chronic) He has no signs clinically/EKG of an acute ischemic process Depression (Chronic) ongoing Essential hypertension (Chronic) He is hypotensive at present. History of CVA (cerebrovascular accident) (Chronic) Hypercholesterolemia (Chronic) secondary diagnosis S/P CABG x 5 (Chronic) secondary diagnosis I discussed the management plan with the patient, his RN and Elisa, his . She will bring his infusion sets/reservoirs
[2016-07-06] MEDS ORDERED: Insulin GLARGINE(*) 1 UNITS UNIT SUBCUT SCH (08:00)
[2016-07-06] MEDS ORDERED: Dextrose 50% Syringe 50 ML* 25 GM/50 ML SYRINGE IV PUSH PRN (08:03)
--- NOTE | 2016-07-06 08:33 | RAD ---
INDICATION: Cough COMPARISON: Most recent comparison chest x-rays dated July 05, 2016 TECHNIQUE: Single AP portable view of the chest was obtained. FINDINGS: Image quality is compromised due to the relative inferiority of a portable chest x-ray. Stable postoperative findings include sternotomy wires and surgical clips overlying the left upper mediastinum. The heart and mediastinum exhibit normal size and contour. The lungs are grossly clear. There is no evidence of a large pleural effusion. Visualized bones are normal for the patient's age. IMPRESSION: No radiographic evidence for acute cardiopulmonary abnormality on this portable chest x-ray.
[2016-07-06] MEDS: Venlafaxine EXT RELEASE CAP* 75 MG PO SCH (08:54)
[2016-07-06] MEDS: Atorvastatin* 20 MG TAB PO SCH (08:54)
[2016-07-06] MEDS: Clopidogrel TAB* 75 MG PO SCH (08:54)
[2016-07-06] MEDS: Aspirin EC Low Dose* 81 MG TAB.EC PO SCH (08:54)
[2016-07-06] MEDS: Methylphenidate TAB* 5 MG PO SCH ×2 (08:55→19:06)
[2016-07-06] MEDS: Sertraline* 50 MG TAB PO SCH (08:55)
[2016-07-06] MEDS: Docusate CAP* 100 MG PO SCH ×2 (09:06→21:08)
[2016-07-06] MEDS: Insulin LISPRO* 1 UNITS UNIT SUBCUT SCH ×7 (09:53→21:09)
[2016-07-06] MEDS: Dextrose 50% Syringe 50 ML* 25 GM/50 ML SYRINGE IV PUSH PRN ×2 (18:03→19:42)
[2016-07-06] MEDS ORDERED: Magnesium Sulfate 2 GM IV IVPB ONE (18:53)
[2016-07-06] MEDS: Potassium Chlor TAB* 20 MEQ TAB.ER PO SCH (21:08)
[2016-07-06] MEDS: traMADol TAB* 50 MG PO PRN (21:09)
[2016-07-06] MEDS ORDERED: D5NS 0.9% 1000 ML BAG* 1,000 ML IV SCH (23:00)
[2016-07-07] MEDS: Acetaminophen TAB* 325 MG PO PRN ×2 (00:06→20:13)
[2016-07-07] MEDS ORDERED: Acetaminophen TAB* 325 MG PO PRN (00:21)
[2016-07-07] MEDS: Potassium Chlor TAB* 20 MEQ TAB.ER PO SCH (00:26)
[2016-07-07] MEDS: Piperac/Tazob 3.375 gm in NS* 3.375 GM/100 ML BAG IVPB SCH ×4 (00:33→19:41)
[2016-07-07 00:41] LABS: BUN/Creatinine Ratio 38.8 (8-20); Calcium 7.9 mg/dL (8.6-10.3); EGFR African American 116.7 (>60); EGFR Non-African American 90.7 (>60); Potassium 3.6 mmol/L (3.5-5.0)
[2016-07-07 00:44] LABS: Hematocrit 33 % (42-52); Hemoglobin 11.2 g/dl (14.0-18.0); Mean Corpuscular HGB Conc 34 g/dl (31-36); Mean Corpuscular Hemoglobin 29 pg (27-31); Mean Corpuscular Volume 87 fL (80-94); Mean Platelet Volume 8 um3 (7.4-10.4); Red Blood Count 3.84 10^6/ul (4.0-5.4); Red Cell Distribution Width 13 % (10.5-15); White Blood Count 13.5 10^3/ul (3.5-10.8)
[2016-07-07 00:58] LABS: Magnesium 2.1 mg/dL (1.9-2.7)
[2016-07-07] MEDS: Azithromycin IV(*) 500 MG in NS 0.9% 250 ML* 250 ML IVPB SCH (01:32)
[2016-07-07 06:34] LABS: Hematocrit 32 % (42-52); Hemoglobin 10.6 g/dl (14.0-18.0); Mean Corpuscular HGB Conc 33 g/dl (31-36); Mean Corpuscular Hemoglobin 29 pg (27-31); Mean Corpuscular Volume 86 fL (80-94); Mean Platelet Volume 8 um3 (7.4-10.4); Red Cell Distribution Width 13 % (10.5-15); White Blood Count 17.1 10^3/ul (3.5-10.8)
[2016-07-07 06:45] LABS: BUN/Creatinine Ratio 34.6 (8-20); C Reactive Protein 35.09 mg/L (< 5.00); Calcium 7.7 mg/dL (8.6-10.3); EGFR African American 128.9 (>60); EGFR Non-African American 100.2 (>60); Magnesium 2.1 mg/dL (1.9-2.7); Potassium 3.8 mmol/L (3.5-5.0)
--- NOTE | 2016-07-07 07:43 | PN ---
Subjective - Subjective Reason for Note: Progress Note History: He developed a fever overnight and his glucose started to rise - hence an IV insulin infusion was started. This morning he is alert. He has had a delirium overnight - he is convinced is daughter is in the ICU in another bed. He denies any pain. He continues to have have a dry, paroxysmal cough. He managed to eat and drink yesterday. He denies headache/neck stiffness. Active Problems: Active Problems Acute bronchitis (Acute) J20.9 Delirium (Acute) R41.0 Diabetic ketoacidosis (Acute) E13.10 Fall (Acute) Lung infiltrate (Acute) R91.8 Type 1 diabetes mellitus with diabetic retinopathy (Acute) E10.319 Coronary artery disease (Chronic) I25.10 Depression (Chronic) F32.9 Essential hypertension (Chronic) I10 History of CVA (cerebrovascular accident) (Chronic) Z86.73 Hypercholesterolemia (Chronic) E78.00 Insulin pump status (Chronic) Z96.41 S/P CABG x 5 (Chronic) Z95.1 Current Medications: Current Medications Acetaminophen (Tylenol Tab*) 650 mg PO Q6H PRN PRN Reason: FEVER/PAIN Last Admin: 07/07/16 00:06 Dose: 650 mg Acetaminophen (Tylenol Tab*) 650 mg PO Q4H PRN PRN Reason: FEVER Aspirin (Aspirin Ec Low Dose*) 81 mg PO [facility] Last Admin: 07/06/16 08:54 Dose: 81 mg Atorvastatin Calcium (Lipitor*) 20 mg PO [facility] Last Admin: 07/06/16 08:54 Dose: 20 mg Clopidogrel Bisulfate (Plavix Tab*) 75 mg PO [facility] Last Admin: 07/06/16 08:54 Dose: 75 mg Dextrose (D50w Syringe 50 Ml*) 12.5 gm IV PUSH .FOR FS < 60 - SS PRN PRN Reason: FS < 60 Last Admin: 07/06/16 19:42 Dose: 12.5 gm Docusate Sodium (Colace Cap*) 200 mg PO BID [facility] Last Admin: 07/06/16 21:08 Dose: 200 mg Heparin Sodium (Porcine) (Heparin Vial(*)) 5,000 units SUBCUT Q8HR [facility] Insulin Human Regular 100 (units/ Sodium Chloride) 100 mls @ 1 mls/hr IV PER RATE [facility]; 1 UNITS/HR PRN Reason: Protocol Dextrose/Sodium Chloride (D5ns 0.9% 1000 Ml Bag*) 1,000 mls @ 100 mls/hr IV PER RATE [facility] Piperacillin Sod/Tazobactam Sod (Zosyn 3.375 Gm In Ns Premix*) 3.375 gm in 100 mls @ 200 mls/hr IVPB Q6H [facility] Last Admin: 07/07/16 06:54 Dose: 200 mls/hr Azithromycin 500 mg/ Sodium (Chloride) 250 mls @ 250 mls/hr IVPB Q24H [facility] Last Admin: 07/07/16 01:32 Dose: 250 mls/hr Insulin Human Lispro (Humalog*) 1 units SUBCUT FS ACHS ICU [facility] PRN Reason: Protocol Last Admin: 07/06/16 20:58 Dose: Not Given Insulin Human Lispro (Humalog*) 0 units SUBCUT ACHS [facility] PRN Reason: Protocol Last Admin: 07/06/16 21:09 Dose: Not Given Melatonin (Melatonin (Nf)) 3 mg PO BEDTIME PRN; Protocol PRN Reason: Sleep Methylphenidate HCl (Ritalin Tab*) 5 mg PO 0900,1800 [facility] Last Admin: 07/06/16 19:06 Dose: 5 mg Ondansetron HCl (Zofran Inj*) 4 mg IV Q6H PRN PRN Reason: NAUSEA Pantoprazole Sodium (Protonix Iv*) 40 mg IV DAILY [facility] Last Admin: 07/06/16 08:55 Dose: 40 mg Prochlorperazine Edisylate (Compazine Inj*) 10 mg IV Q6H PRN PRN Reason: NAUSEA Sertraline HCl (Zoloft*) 150 mg PO DAILY [facility] Last Admin: 07/06/16 08:55 Dose: 150 mg Tramadol HCl (Ultram*) 50 mg PO QID PRN PRN Reason: PAIN - MODERATE Last Admin: 07/06/16 21:09 Dose: 50 mg Venlafaxine HCl (Effexor Xr Cap*) [facility] Reason: Protocol Last Admin: 07/06/16 08:54 Dose: 225 mg Home Medications: Home Medications Medication Instructions Recorded Confirmed Type Alprazolam [Xanax] 0.5 mg PO BEDTIME PRN 05/25/12 07/05/16 History Aspirin 81 mg PO QAM 05/25/12 07/05/16 History Atorvastatin* [Lipitor*] 20 mg PO QAM 05/25/12 07/05/16 History Clopidogrel Bisulfate [Clopidogrel] 75 mg PO QAM 05/25/12 07/05/16 History Diltiazem HCl Coated Beads 240 mg PO QAM 05/25/12 07/05/16 History [Diltiazem Cd] Hydrochlorothiazide 50 mg PO QAM 05/25/12 07/05/16 History Insulin Lispro [Humalog] 30 unit SUBCUT SEE INSTRUCTIONS 05/25/12 07/05/16 History Methylphenidate HCl [Ritalin] 5 mg PO BID 05/25/12 07/05/16 History Telmisartan [Micardis] 80 mg PO QAM 05/25/12 07/05/16 History Venlafaxine CAP (NF) [Effexor CAP 3 tab PO QAM 05/25/12 07/05/16 History (NF)] traMADol TAB* [Ultram*] 50 mg PO QID PRN 05/25/12 07/05/16 History Cetirizine* [ZyrTEC*] 10 mg PO DAILY 08/27/15 07/05/16 History Sertraline* [Zoloft*] 150 mg PO DAILY 08/27/15 07/05/16 History diPHENhydraMINE PO* [Benadryl PO*] 25 mg PO QAM 08/27/15 07/05/16 History Allergies: Allergies Allergy/AdvReac Type Severity Reaction Status Date / Time Latex Allergy RASH, Verified 07/05/16 22:20 IRRITATION Meperidine [From Demerol HCl] AdvReac NIGHTMARES, Verified 07/05/16 22:20 CHILLS, SWEATS Objective - Vital Signs Vital Signs: Vital Signs 07/06/16 07/06/16 07/06/16 07:37 08:00 08:30 Temperature Pulse Rate 90 87 Respiratory 20 7 20 Rate Blood Pressure 94/45 93/44 (mmHg) O2 Sat by Pulse 99 98 Oximetry 07/06/16 07/06/16 07/06/16 09:00 10:00 10:40 Temperature Pulse Rate 88 87 Respiratory 22 22 20 Rate Blood Pressure 96/46 97/48 (mmHg) O2 Sat by Pulse 99 100 Oximetry 03/07/06/16 07/06/16 11:00 11:19 12:00 Temperature 99.4 F Pulse Rate 86 81 Respiratory 19 19 19 Rate Blood Pressure 101/51 101/51 (mmHg) O2 Sat by Pulse 99 99 Oximetry 07/06/16 07/06/16 07/06/16 12:03 13:00 14:00 Temperature Pulse Rate 81 81 Respiratory 19 23 Rate Blood Pressure 108/60 (mmHg) O2 Sat by Pulse 100 100 100 Oximetry 07/06/16 07/06/16 07/06/16 15:00 16:00 17:00 Temperature 99.0 F Pulse Rate 97 94 102 Respiratory 27 26 27 Rate Blood Pressure 111/61 (mmHg) O2 Sat by Pulse 98 100 96 Oximetry 07/06/16 07/06/16 07/06/16 17:54 17:56 18:00 Temperature Pulse Rate 103 93 89 Respiratory 23 27 11 Rate Blood Pressure 138/45 89/27 91/46 (mmHg) O2 Sat by Pulse 92 88 90 Oximetry 07/06/16 07/06/16 07/06/16 19:00 19:02 19:04 Temperature Pulse Rate 75 76 76 Respiratory 25 26 26 Rate Blood Pressure 80/47 82/45 86/44 (mmHg) O2 Sat by Pulse 96 96 96 Oximetry 07/06/16 07/06/16 07/06/16 19:09 19:58 20:00 Temperature 98.6 F Pulse Rate 75 71 Respiratory 26 28 Rate Blood Pressure 87/47 103/55 (mmHg) O2 Sat by Pulse 97 97 Oximetry 07/06/16 07/06/16 07/06/16 21:00 21:29 22:00 Temperature Pulse Rate 90 111 Respiratory 22 18 Rate Blood Pressure 121/71 119/78 (mmHg) O2 Sat by Pulse 91 97 90 Oximetry 07/06/16 07/06/16 07/06/16 22:45 23:00 23:03 Temperature 103.2 F Pulse Rate 110 108 Respiratory 23 18 Rate Blood Pressure 113/51 (mmHg) O2 Sat by Pulse 95 93 Oximetry 07/06/16 07/07/16 07/07/16 23:15 00:00 00:41 Temperature 103.4 F 104.9 F 102.9 F Pulse Rate 105 Respiratory 28 Rate Blood Pressure 106/57 (mmHg) O2 Sat by Pulse 95 Oximetry 07/07/16 07/07/1607/07/17 01:00 01:40 02:00 Temperature 102.7 F Pulse Rate 99 97 Respiratory 31 29 Rate Blood Pressure 112/51 97/52 (mmHg) O2 Sat by Pulse 94 94 Oximetry 07/07/16 07/07/16 07/07/16 02:01 02:33 03:00 Temperature 99.9 F Pulse Rate 87 Respiratory 24 Rate Blood Pressure 99/48 (mmHg) O2 Sat by Pulse 95 93 Oximetry 07/07/16 07/07/16 04:00 05:00 Temperature 98.8 F Pulse Rate 83 81 Respiratory 22 22 Rate Blood Pressure 100/46 100/52 (mmHg) O2 Sat by Pulse 94 94 Oximetry - Intake and Output Intake and Output: Intake & Output 07/04/16 07/05/16 07/06/16 07/07/16 11:59 11:59 11:59 11:59 Intake Total 4140 2178 Output Total 200 Balance 4140 1978 Weight 150 lb 9.211 oz 156 lb 8.451 oz Intake: IV Fluids 3404 1056 D5NS 37 NS (0.9%) 3380 NS KVO 24 1019 IVPB 100 NS KVO 100 Medicated IV 71 72 CC - Insulin 71 72 Oral 565 1050 Output: Urine 200 Other: Estimated Void Small Medium Date of Last Bowel 07/06/16 07/06/16 Movement # Bowel Movements 1 1 Estimated Stool Amount Medium Medium # Voids 1 4 ADLs: Meal Record Start: 07/05/16 23: 49 Freq: 09,13,18 Status: Active Document 07/06/16 09:00 [id number] (Rec: 07/06/16 09:31 [id number] ICU-C15) Document 07/06/16 13:00 [id number] (Rec: 07/06/16 14:41 [id number] ICU-C10) Document 07/06/16 18:00 [id number] (Rec: 07/06/16 19:33 [id number] ICU-C10) Intake and Output Start: 07/05/16 23: 49 Freq: 06,14,22 Status: Active Document 07/06/16 06:00 [id number] (Rec: 07/06/16 06:12 [id number] ICU-C14) Document 07/06/16 11:40 [id number] (Rec: 07/06/16 11:40 [id number] ICU-C15) Document 07/06/16 13:50 [id number] (Rec: 07/06/16 13:51 [id number] ICU-C16) Document 07/06/16 22:00 [id number] (Rec: 07/06/16 23:01 [id number] ICU-C15) - Physical Exam General: No Cyanosis, No Anemia, No Jaundice Skin: Normal: Rash Lungs and Chest: Yes: Chest Expansion Full, Chest Expansion Symetrica, Percussion Note Resonant, Vessicular Breath Sounds, Other - paroxysmal cough. No: Crackles, Wheezes, Respiratory Distress, Use of Accessory Muscles Heart Rate and Rhythm: Regular JVP: Not Elevated Additional Cardiovascular: Yes: Normal Heart Sounds. No: Heart Murmur, Pedal Edema Abdominal Exam: Yes: Soft, Bowel Sounds Present. No: Distention, Abdominal Tenderness - Extremities Cranial Nerves II-XII Intact: Yes Limbs: Normal Power, Normal Tone - Neuro Orientation: Person Speech: Normal Results - Results Lab Results: Laboratory Results - last 24 hr 07/06/16 07/06/16 07/06/16 08:13 09:03 09:55 WBC RBC Hgb Hct MCV MCH MCHC RDW Plt Count MPV Neut % (Auto) Lymph % (Auto) Roane % (Auto) Eos % (Auto) Baso % (Auto) Absolute Neuts (auto) Absolute Lymphs (auto) Absolute Monos (auto) Absolute Eos (auto) Absolute Basos (auto) Absolute Nucleated RBC Nucleated RBC % Sodium Potassium Chloride Carbon Dioxide Anion Gap BUN Creatinine Est GFR ( Amer) Est GFR (Non-Af Amer) BUN/Creatinine Ratio Glucose POC Glucose (mg/dL) 248 H 214 H 198 H Lactic Acid Calcium Magnesium C-Reactive Protein B-Natriuretic Peptide Procalcitonin 07/06/16 07/06/16 07/06/16 10:00 11:01 14:10 WBC RBC Hgb Hct MCV MCH MCHC RDW Plt Count MPV Neut % (Auto) Lymph % (Auto) Roane % (Auto) Eos % (Auto) Baso % (Auto) Absolute Neuts (auto) Absolute Lymphs (auto) Absolute Monos (auto) Absolute Eos (auto) Absolute Basos (auto) Absolute Nucleated RBC Nucleated RBC % Sodium Potassium Chloride Carbon Dioxide Anion Gap BUN Creatinine Est GFR ( Amer) Est GFR (Non-Af Amer) BUN/Creatinine Ratio Glucose POC Glucose (mg/dL) 183 H 83 Lactic Acid Calcium Magnesium 1.5 L C-Reactive Protein B-Natriuretic Peptide Procalcitonin 07/06/16 07/06/16 07/06/16 16:15 16:30 17:54 WBC RBC Hgb Hct MCV MCH MCHC RDW Plt Count MPV Neut % (Auto) Lymph % (Auto) Roane % (Auto) Eos % (Auto) Baso % (Auto) Absolute Neuts (auto) Absolute Lymphs (auto) Absolute Monos (auto) Absolute Eos (auto) Absolute Basos (auto) Absolute Nucleated RBC Nucleated RBC % Sodium Potassium Chloride Carbon Dioxide Anion Gap BUN Creatinine Est GFR ( Amer) Est GFR (Non-Af Amer) BUN/Creatinine Ratio Glucose 267 H POC Glucose (mg/dL) 88 Lactic Acid Calcium Magnesium 1.6 L C-Reactive Protein B-Natriuretic Peptide Procalcitonin 07/06/16 07/06/16 07/06/16 17:54 18:14 19:37 WBC RBC Hgb Hct MCV MCH MCHC RDW Plt Count MPV Neut % (Auto) Lymph % (Auto) Roane % (Auto) Eos % (Auto) Baso % (Auto) Absolute Neuts (auto) Absolute Lymphs (auto) Absolute Monos (auto) Absolute Eos (auto) Absolute Basos (auto) Absolute Nucleated RBC Nucleated RBC % Sodium Potassium Chloride Carbon Dioxide Anion Gap BUN Creatinine Est GFR ( Amer) Est GFR (Non-Af Amer) BUN/Creatinine Ratio Glucose POC Glucose (mg/dL) 343 H 111 H 53 L Lactic Acid Calcium Magnesium C-Reactive Protein B-Natriuretic Peptide Procalcitonin 07/06/16 07/06/16 07/06/16 19:47 20:02 21:09 WBC RBC Hgb Hct MCV MCH MCHC RDW Plt Count MPV Neut % (Auto) Lymph % (Auto) Roane % (Auto) Eos % (Auto) Baso % (Auto) Absolute Neuts (auto) Absolute Lymphs (auto) Absolute Monos (auto) Absolute Eos (auto) Absolute Basos (auto) Absolute Nucleated RBC Nucleated RBC % Sodium Potassium Chloride Carbon Dioxide Anion Gap BUN Creatinine Est GFR ( Amer) Est GFR (Non-Af Amer) BUN/Creatinine Ratio Glucose 158 H POC Glucose (mg/dL) 174 H 119 H Lactic Acid Calcium Magnesium C-Reactive Protein B-Natriuretic Peptide Procalcitonin 07/06/16 07/06/16 07/07/16 22:04 23:07 00:00 WBC RBC Hgb Hct MCV MCH MCHC RDW Plt Count MPV Neut % (Auto) Lymph % (Auto) Roane % (Auto) Eos % (Auto) Baso % (Auto) Absolute Neuts (auto) Absolute Lymphs (auto) Absolute Monos (auto) Absolute Eos (auto) Absolute Basos (auto) Absolute Nucleated RBC Nucleated RBC % Sodium Potassium Chloride Carbon Dioxide Anion Gap BUN Creatinine Est GFR ( Amer) Est GFR (Non-Af Amer) BUN/Creatinine Ratio Glucose POC Glucose (mg/dL) 80 155 H 181 H Lactic Acid Calcium Magnesium C-Reactive Protein B-Natriuretic Peptide Procalcitonin 07/07/16 07/07/16 07/07/16 00:15 00:15 00:15 WBC 13.5 H RBC 3.84 L Hgb 11.2 L Hct 33 L MCV 87 MCH 29 MCHC 34 RDW 13 Plt Count 168 MPV 8 Neut % (Auto) 95.1 H Lymph % (Auto) 1.8 L Roane % (Auto) 2.7 Eos % (Auto) 0 Baso % (Auto) 0.4 Absolute Neuts (auto) 12.8 H Absolute Lymphs (auto) 0.2 L Absolute Monos (auto) 0.4 Absolute Eos (auto) 0 Absolute Basos (auto) 0 Absolute Nucleated RBC 0 Nucleated RBC % 0 Sodium Potassium Chloride Carbon Dioxide Anion Gap BUN Creatinine Est GFR ( Amer) Est GFR (Non- Amer) BUN/Creatinine Ratio Glucose POC Glucose (mg/dL) Lactic Acid Calcium Magnesium C-Reactive Protein B-Natriuretic Peptide 406 H Procalcitonin 1.0 H 07/07/16 07/07/16 07/07/16 00:15 00:15 01:00 WBC RBC Hgb Hct MCV MCH MCHC RDW Plt Count MPV Neut % (Auto) Lymph % (Auto) Roane % (Auto) Eos % (Auto) Baso % (Auto) Absolute Neuts (auto) Absolute Lymphs (auto) Absolute Monos (auto) Absolute Eos (auto) Absolute Basos (auto) Absolute Nucleated RBC Nucleated RBC % Sodium 129 L Potassium 3.6 Chloride 103 Carbon Dioxide 20 L Anion Gap 6 BUN 33 H Creatinine 0.85 Est GFR ( Amer) 116.7 Est GFR (Non-Af Amer) 90.7 BUN/Creatinine Ratio 38.8 H Glucose 167 H POC Glucose (mg/dL) 201 H Lactic Acid 2.8 H* Calcium 7.9 L Magnesium 2.1 C-Reactive Protein B-Natriuretic Peptide Procalcitonin 07/07/16 07/07/16 07/07/16 02:06 03:00 04:08 WBC RBC Hgb Hct MCV MCH MCHC RDW Plt Count MPV Neut % (Auto) Lymph % (Auto) Roane % (Auto) Eos % (Auto) Baso % (Auto) Absolute Neuts (auto) Absolute Lymphs (auto) Absolute Monos (auto) Absolute Eos (auto) Absolute Basos (auto) Absolute Nucleated RBC Nucleated RBC % Sodium Potassium Chloride Carbon Dioxide Anion Gap BUN Creatinine Est GFR ( Amer) Est GFR (Non-Af Amer) BUN/Creatinine Ratio Glucose POC Glucose (mg/dL) 256 H 262 H 262 H Lactic Acid Calcium Magnesium C-Reactive Protein B-Natriuretic Peptide Procalcitonin 07/07/16 07/07/16 07/07/16 05:08 06:13 06:15 WBC 17.1 H RBC 3.70 L Hgb 10.6 L Hct 32 L MCV 86 MCH 29 MCHC 33 RDW 13 Plt Count 145 L MPV 8 Neut % (Auto) 90.2 H Lymph % (Auto) 4.0 L Roane % (Auto) 5.6 Eos % (Auto) 0 Baso % (Auto) 0.2 Absolute Neuts (auto) 15.4 H Absolute Lymphs (auto) 0.7 L Absolute Monos (auto) 1.0 H Absolute Eos (auto) 0 Absolute Basos (auto) 0 Absolute Nucleated RBC 0 Nucleated RBC % 0 Sodium Potassium Chloride Carbon Dioxide Anion Gap BUN Creatinine Est GFR ( Amer) Est GFR (Non-Af Amer) BUN/Creatinine Ratio Glucose POC Glucose (mg/dL) 252 H 235 H Lactic Acid Calcium Magnesium C-Reactive Protein B-Natriuretic Peptide Procalcitonin 07/07/16 07/07/16 06:15 07:00 WBC RBC Hgb Hct MCV MCH MCHC RDW Plt Count MPV Neut % (Auto) Lymph % (Auto) Roane % (Auto) Eos % (Auto) Baso % (Auto) Absolute Neuts (auto) Absolute Lymphs (auto) Absolute Monos (auto) Absolute Eos (auto) Absolute Basos (auto) Absolute Nucleated RBC Nucleated RBC % Sodium 130 L Potassium 3.8 Chloride 104 Carbon Dioxide 23 Anion Gap 3 BUN 27 H Creatinine 0.78 Est GFR ( Amer) 128.9 Est GFR (Non-Af Amer) 100.2 BUN/Creatinine Ratio 34.6 H Glucose 220 H POC Glucose (mg/dL) 218 H Lactic Acid Calcium 7.7 L Magnesium 2.1 C-Reactive Protein 35.09 H B-Natriuretic Peptide Procalcitonin Assessment - Problem List Assessment: Patient Problems Acute bronchitis (Acute) Delirium (Acute) Diabetic ketoacidosis (Acute) Fall (Acute) Lung infiltrate (Acute) Type 1 diabetes mellitus with diabetic retinopathy (Acute) Coronary artery disease (Chronic) Depression (Chronic) Essential hypertension (Chronic) History of CVA (cerebrovascular accident) (Chronic) Hypercholesterolemia (Chronic) Insulin pump status (Chronic) S/P CABG x 5 (Chronic) Plan: Acute bronchitis (Acute) Lung infiltrate (Acute) He has had a high fever overnight and has developed lung infiltrates. We have started him on antibacterials - with additional coverage for primary atypical pneumonia ( piperacillin/tazobactam and azithromycin). I am surprised the CRP is not higher with such a high neutrophil count. I will check a procalcitonin and urine for pneumococcal and legionella antigen. I will consider the use of steroids - I am concerned about the worsening of his glycemic control and will weigh this carefully Diabetic ketoacidosis (Acute) His bicarbonate is normal. I think he is insulin resistant, but his ketosis is improving. Since he is encephalopathic, I am going to discontinue his insulin pump and put him on lantus insulin and subcutaneous insulin. He will not be able to reliably change the settings on his pump. I will discontinue the IV insulin - but will use stress basal insulin doses. Fall (Acute) No new problems Type 1 diabetes mellitus with diabetic retinopathy (Acute) He has his insulin pump once again Coronary artery disease (Chronic) stable Depression (Chronic) inactive Essential hypertension (Chronic) His BP is on the low side History of CVA (cerebrovascular accident) (Chronic) He has a delirium - he has mild memory deficit normally, clearly this is exacerbated Hypercholesterolemia (Chronic) continue current Rx Insulin pump status (Chronic) discontinue S/P CABG x 5 (Chronic) I spoke to the patient, who hasn't got full insight. I spoke to his Elisa on the phone and told her that he has developed these lung infiltrates and that at present he has a delirium. I also mentioned that these infiltrates could represent either a bacterial, atypical pneumonia or viral process. I was concerned this could progress to respiratory failure - though he is oxygenating well at the moment. He has no signs at present of cardiac (BNP normal), renal, hepatic failure. She agreed with this management plan.
--- NOTE | 2016-07-07 07:48 | RAD ---
INDICATION: Increased oxygen the mass. COMPARISON: Comparison is made with a prior chest x-ray study from July 06, 2016. TECHNIQUE: A portable view of the chest was obtained. FINDINGS: The patient is status post sternotomy. The heart is within normal limits in size. There is a focal infiltrate present at the medial right lung base which is new from the prior study. No pleural effusion is seen. IMPRESSION: NEW RIGHT BASILAR INFILTRATE.
[2016-07-07] MEDS: Heparin VIAL(*) 5000 UNITS/ML VIAL (FIVE THOUSAND) SUBCUT SCH ×3 (07:55→20:13)
[2016-07-07] MEDS: traMADol TAB* 50 MG PO PRN ×2 (08:20→20:13)
[2016-07-07] MEDS: Pantoprazole IV* 40 MG IV SCH (09:34)
[2016-07-07] MEDS: Aspirin EC Low Dose* 81 MG TAB.EC PO SCH (09:34)
[2016-07-07] MEDS: Clopidogrel TAB* 75 MG PO SCH (09:34)
[2016-07-07] MEDS: Sertraline* 50 MG TAB PO SCH (09:34)
[2016-07-07] MEDS: Atorvastatin* 20 MG TAB PO SCH (09:34)
[2016-07-07] MEDS: Docusate CAP* 100 MG PO SCH ×2 (09:35→20:12)
[2016-07-07] MEDS: Venlafaxine EXT RELEASE CAP* 75 MG PO SCH (09:35)
[2016-07-07] MEDS: Methylphenidate TAB* 5 MG PO SCH ×2 (10:05→19:10)
[2016-07-07] MEDS: Insulin LISPRO* 1 UNITS UNIT SUBCUT SCH ×8 (10:06→20:13)
[2016-07-07] MEDS: Insulin GLARGINE(*) 1 UNITS UNIT SUBCUT SCH ×2 (10:09→20:12)
--- NOTE | 2016-07-07 18:18 | PN ---
Progress Note - Progress Note Note: I was called to see the patient. He has had some O2 desaturation and is now on NC 6 liters. He is also more confused/disoriented. He was eating his dinner with some relish when I entered. He recognized me by name and told me he was in the hospital. Initially it was 2015, but with prompting it was 2017. He was having an ABG drawn. I asked him about resuscitation status - he wants to be full code. At present, he is not showing signs of incipient respiratory failure requiring a respirator. Phone call to Elisa - no reply - didn't LMOM
[2016-07-07 18:37] LABS: FIO2 6
[2016-07-07 18:42] LABS: PCO2 Arterial 35 mmHg (35-45)
[2016-07-08] MEDS: Piperac/Tazob 3.375 gm in NS* 3.375 GM/100 ML BAG IVPB SCH ×4 (01:12→18:31)
[2016-07-08] MEDS: Azithromycin IV(*) 500 MG in NS 0.9% 250 ML* 250 ML IVPB SCH (01:36)
[2016-07-08 05:44] LABS: Hematocrit 30 % (42-52); Hemoglobin 10.1 g/dl (14.0-18.0); Mean Corpuscular HGB Conc 34 g/dl (31-36); Mean Corpuscular Hemoglobin 29 pg (27-31); Mean Corpuscular Volume 86 fL (80-94); Mean Platelet Volume 8 um3 (7.4-10.4); Red Blood Count 3.48 10^6/ul (4.0-5.4); Red Cell Distribution Width 13 % (10.5-15); White Blood Count 9.8 10^3/ul (3.5-10.8)
[2016-07-08 05:53] LABS: BUN/Creatinine Ratio 30.4 (8-20); C Reactive Protein 98.75 mg/L (< 5.00); Calcium 7.7 mg/dL (8.6-10.3); EGFR African American 148.5 (>60); EGFR Non-African American 115.4 (>60); Potassium 3.8 mmol/L (3.5-5.0)
[2016-07-08] MEDS: Heparin VIAL(*) 5000 UNITS/ML VIAL (FIVE THOUSAND) SUBCUT SCH ×3 (06:07→21:29)
--- NOTE | 2016-07-08 07:29 | PN ---
Subjective - Subjective Reason for Note: Progress Note History: His pneumonia became apparent yesterday. He developed increasing dyspneic, his cough was productive, his pO2 desaturated. He aspirated some chicken he was eating and this required the Heimlich maneuver. At his worst he was on 6 liters of O2. Overnight, he has become less distressed and his O2 is now at 4 liters. He is more awake and alert, conversational. He is no longer delirious. He denies any pain. He is distressed by his productive cough, but is not complaining of dyspnea. He is hungry. He remains febrile. Active Problems: Active Problems Acute bronchitis (Acute) J20.9 Delirium (Acute) R41.0 Diabetic ketoacidosis (Acute) E13.10 Fall (Acute) Lung infiltrate (Acute) R91.8 Pneumonia involving right lung (Acute) J18.9 Type 1 diabetes mellitus with diabetic retinopathy (Acute) E10.319 Coronary artery disease (Chronic) I25.10 Depression (Chronic) F32.9 Essential hypertension (Chronic) I10 History of CVA (cerebrovascular accident) (Chronic) Z86.73 Hypercholesterolemia (Chronic) E78.00 Insulin pump status (Chronic) Z96.41 S/P CABG x 5 (Chronic) Z95.1 Current Medications: Current Medications Acetaminophen (Tylenol Tab*) 650 mg PO Q6H PRN PRN Reason: FEVER/PAIN Last Admin: 07/07/16 20:13 Dose: 650 mg Acetaminophen (Tylenol Tab*) 650 mg PO Q4H PRN PRN Reason: FEVER Aspirin (Aspirin Ec Low Dose*) 81 mg PO [facility] Last Admin: 07/07/16 09:34 Dose: 81 mg Atorvastatin Calcium (Lipitor*) 20 mg PO [facility] Last Admin: 07/07/16 09:34 Dose: 20 mg Clopidogrel Bisulfate (Plavix Tab*) 75 mg PO [facility] Last Admin: 07/07/16 09:34 Dose: 75 mg Dextrose (D50w Syringe 50 Ml*) 12.5 gm IV PUSH .FOR FS < 60 - SS PRN PRN Reason: FS < 60 Last Admin: 07/06/16 19:42 Dose: 12.5 gm Docusate Sodium (Colace Cap*) 200 mg PO BID [facility] Last Admin: 07/07/16 20:12 Dose: 200 mg Heparin Sodium (Porcine) (Heparin Vial(*)) 5,000 units SUBCUT Q8HR [facility] Last Admin: 07/08/16 06:07 Dose: 5,000 units Insulin Human Regular 100 (units/ Sodium Chloride) 100 mls @ 1 mls/hr IV PER RATE [facility]; 1 UNITS/HR PRN Reason: Protocol Piperacillin Sod/Tazobactam Sod (Zosyn 3.375 Gm In Ns Premix*) 3.375 gm in 100 mls @ 200 mls/hr IVPB Q6H [facility] Last Admin: 07/08/16 06:07 Dose: 200 mls/hr Azithromycin 500 mg/ Sodium (Chloride) 250 mls @ 250 mls/hr IVPB Q24H [facility] Last Admin: 07/08/16 01:36 Dose: 250 mls/hr Insulin Glargine (Lantus(*)) 20 units SUBCUT Q12H [facility] Last Admin: 07/07/16 20:12 Dose: 20 unit Insulin Human Lispro (Humalog*) 1 units SUBCUT FS ACHS ICU [facility] PRN Reason: Protocol Last Admin: 07/07/16 20:12 Dose: Not Given Insulin Human Lispro (Humalog*) 0 units SUBCUT ACHS [facility] PRN Reason: Protocol Last Admin: 07/07/16 20:13 Dose: Not Given Melatonin (Melatonin (Nf)) 3 mg PO BEDTIME PRN; Protocol PRN Reason: Sleep Methylphenidate HCl (Ritalin Tab*) 5 mg PO 0900,1800 [facility] Last Admin: 07/07/16 19:10 Dose: 5 mg Ondansetron HCl (Zofran Inj*) 4 mg IV Q6H PRN PRN Reason: NAUSEA Last Admin: 07/07/16 08:20 Dose: 4 mg Pantoprazole Sodium (Protonix Iv*) 40 mg IV DAILY [facility] Last Admin: 07/07/16 09:34 Dose: 40 mg Prochlorperazine Edisylate (Compazine Inj*) 10 mg IV Q6H PRN PRN Reason: NAUSEA Sertraline HCl (Zoloft*) 150 mg PO DAILY [facility] Last Admin: 07/07/16 09:34 Dose: 150 mg Tramadol HCl (Ultram*) 50 mg PO QID PRN PRN Reason: PAIN - MODERATE Last Admin: 07/07/16 20:13 Dose: 50 mg Venlafaxine HCl (Effexor Xr Cap*) 225 mg PO QAM [facility] PRN Reason: Protocol Last Admin: 07/07/16 09:35 Dose: 225 mg Home Medications: Home Medications Medication Instructions Recorded Confirmed Type Alprazolam [Xanax] 0.5 mg PO BEDTIME PRN 05/25/12 07/05/16 History Aspirin 81 mg PO QAM 05/25/12 07/05/16 History Atorvastatin* [Lipitor*] 20 mg PO QAM 05/25/12 07/05/16 History Clopidogrel Bisulfate [Clopidogrel] 75 mg PO QAM 05/25/12 07/05/16 History Diltiazem HCl Coated Beads 240 mg PO QAM 05/25/12 07/05/16 History [Diltiazem Cd] Hydrochlorothiazide 50 mg PO QAM 05/25/12 07/05/16 History Insulin Lispro [Humalog] 30 unit SUBCUT SEE INSTRUCTIONS 05/25/12 07/05/16 History Methylphenidate HCl [Ritalin] 5 mg PO BID 05/25/12 07/05/16 History Telmisartan [Micardis] 80 mg PO QAM 05/25/12 07/05/16 History Venlafaxine CAP (NF) [Effexor CAP 3 tab PO QAM 05/25/12 07/05/16 History (NF)] traMADol TAB* [Ultram*] 50 mg PO QID PRN 05/25/12 07/05/16 History Cetirizine* [ZyrTEC*] 10 mg PO DAILY 08/27/15 07/05/16 History Sertraline* [Zoloft*] 150 mg PO DAILY 08/27/15 07/05/16 History diPHENhydraMINE PO* [Benadryl PO*] 25 mg PO QAM 08/27/15 07/05/16 History Allergies: Allergies Allergy/AdvReac Type Severity Reaction Status Date / Time Latex Allergy RASH, Verified 07/05/16 22:20 IRRITATION Meperidine [From Demerol HCl] AdvReac NIGHTMARES, Verified 07/05/16 22:20 CHILLS, SWEATS Objective - Vital Signs Vital Signs: Vital Signs 07/07/16 07/07/16 07/07/16 08:00 09:00 10:00 Temperature 99.3 F Pulse Rate 82 77 82 Respiratory 27 27 23 Rate Blood Pressure 102/53 94/53 100/45 (mmHg) O2 Sat by Pulse 97 96 96 Oximetry 07/07/16 07/07/16 07/07/16 11:00 12:00 13:00 Temperature 100 F Pulse Rate 82 83 87 Respiratory 24 27 29 Rate Blood Pressure 101/49 112/55 110/51 (mmHg) O2 Sat by Pulse 98 94 91 Oximetry 07/07/16 07/07/16 07/07/16 14:00 15:00 16:00 Temperature 99.9 F Pulse Rate 99 88 91 Respiratory 30 34 24 Rate Blood Pressure 107/50 104/58 108/61 (mmHg) O2 Sat by Pulse 95 93 97 Oximetry 07/07/16 07/07/16 07/07/16 17:00 18:00 19:00 Temperature Pulse Rate 87 94 92 Respiratory 23 26 35 Rate Blood Pressure 119/60 96/75 125/56 (mmHg) O2 Sat by Pulse 97 96 93 Oximetry 07/07/16 07/07/16 07/07/16 20:00 20:05 21:00 Temperature 102.3 F Pulse Rate 91 93 Respiratory 28 36 Rate Blood Pressure 127/58 116/57 (mmHg) O2 Sat by Pulse 94 91 Oximetry 07/07/16 07/07/16 07/07/16 22:00 23:00 23:21 Temperature 99.9 F Pulse Rate 89 82 Respiratory 27 33 Rate Blood Pressure 115/57 109/52 (mmHg) O2 Sat by Pulse 93 94 Oximetry 07/08/16 07/08/16 07/08/16 00:00 00:11 01:00 Temperature Pulse Rate 80 80 84 Respiratory 32 32 32 Rate Blood Pressure 109/61 123/57 (mmHg) O2 Sat by Pulse 96 97 94 Oximetry 07/08/16 07/08/16 07/08/16 02:00 03:00 03:55 Temperature 101.3 F Pulse Rate 87 82 Respiratory 37 30 Rate Blood Pressure 116/61 115/60 (mmHg) O2 Sat by Pulse 92 99 Oximetry 07/08/16 07/08/16 07/08/16 04:00 05:00 06:00 Temperature Pulse Rate 82 84 87 Respiratory 28 16 35 Rate Blood Pressure 121/56 112/52 119/66 (mmHg) O2 Sat by Pulse 99 96 92 Oximetry - Intake and Output Intake and Output: Intake & Output 07/05/16 07/06/16 07/07/16 07/08/16 11:59 11:59 11:59 11:59 Intake Total 4140 2861 4634.9 Output Total 300 300 Balance 4140 2561 4334.9 Weight 150 lb 9.211 oz 156 lb 8.451 oz 158 lb 4.67 oz Intake: IV Fluids 3404 1056 1111 D5NS 37 986 NS (0.9%) 3380 NS KVO 24 1019 NS and Zosyn 125 IVPB 100 1057 NS KVO 100 NS and Zosyn 1057 Medicated IV 71 75 6.9 CC - Insulin 71 75 6.9 Oral 565 1730 2460 Output: Urine 300 300 Other: Estimated Void Small Medium Large Date of Last Bowel 07/06/16 07/06/16 07/07/2016 Movement # Bowel Movements 1 1 1 Estimated Stool Amount Medium Medium Small # Voids 1 3 3 ADLs: Meal Record Start: 07/05/16 23: 49 Freq: 09,13,18 Status: Active Document 07/06/16 09:00 [id number] (Rec: 07/06/16 09:31 [id number] ICU-C15) Document 07/06/16 13:00 [id number] (Rec: 07/06/16 14:41 [id number] ICU-C10) Document 07/06/16 18:00 [id number] (Rec: 07/06/16 19:33 [id number] ICU-C10) Document 07/07/16 09:00 [id number] (Rec: 07/07/16 10:36 [id number] ICU-C15) Document 07/07/16 13:00 [id number] (Rec: 07/07/16 14:30 [id number] ICU-C15) Document 07/07/16 18:00 [id number] (Rec: 07/07/16 18:53 [id number] ICU-M02) Intake and Output Start: 07/05/16 23: 49 Freq: 06,14,22 Status: Active Document 07/06/16 06:00 [id number] (Rec: 07/06/16 06:12 [id number] ICU-C14) Document 07/06/16 11:40 [id number] (Rec: 07/06/16 11:40 [id number] ICU-C15) Document 07/06/16 13:50 [id number] (Rec: 07/06/16 13:51 [id number] ICU-C16) Document 07/06/16 22:00 [id number] (Rec: 07/06/16 23:01 [id number] ICU-C15) Document 07/07/16 06:00 [id number] (Rec: 07/07/16 07:53 [id number] ICU-C22) Document 07/07/16 14:00 [id number] (Rec: 07/07/16 14:47 [id number] ICU-C15) Document 07/07/16 15:46 [id number] (Rec: 07/07/16 15:47 [id number] ICU-C15) Document 07/07/16 18:53 [id number] (Rec: 07/07/16 18:53 [id number] ICU-M02) Document 07/07/16 18:53 [id number] (Rec: 07/07/16 18:53 [id number] ICU-M02) Document 07/07/16 22:00 [id number] (Rec: 07/07/16 23:19 [id number] ICU-C15) Document 07/08/16 06:00 [id number] (Rec: 07/08/16 06:45 [id number] ICU-C15) - Physical Exam General: No Cyanosis, No Anemia, No Jaundice, No Lymphadenopathy, No Clubbing Skin: Normal: Rash Lungs and Chest: Yes: Chest Expansion Full, Chest Expansion Symetrica, Percussion Note Resonant, Crackles - Bibasilar coarse crackles, Wheezes - scattered basilar, Other - wet, productive cough. No: Vessicular Breath Sounds - diminished sounds at bases, Respiratory Distress, Use of Accessory Muscles Heart Rate and Rhythm: Regular JVP: Not Elevated Additional Cardiovascular: Yes: Normal Heart Sounds. No: Heart Murmur, Pedal Edema Abdominal Exam: Yes: Soft, Bowel Sounds Present. No: Distention, Abdominal Mass , Hepatomegaly, Abdominal Tenderness - Extremities Cranial Nerves II-XII Intact: Yes Limbs: Normal Power, Normal Tone - Neuro Orientation: Person, Place Speech: Normal Results - Results Lab Results: Laboratory Results - last 24 hr 07/07/16 07/07/16 07/07/16 08:04 09:21 09:21 WBC RBC Hgb Hct MCV MCH MCHC RDW Plt Count MPV Neut % (Auto) Lymph % (Auto) [place] % (Auto) Eos % (Auto) Baso % (Auto) Absolute Neuts (auto) Absolute Lymphs (auto) Absolute Monos (auto) Absolute Eos (auto) Absolute Basos (auto) Absolute Nucleated RBC Nucleated RBC % Patient Temperature ABG pH ABG pCO2 ABG pO2 ABG HCO3 ABG O2 Saturation ABG Base Excess Respiration Rate Ventilator Type Vent Mode FiO2 Inspiratory Time PEEP Pressure Support Pressure Control EPAP IPAP BiPAP Sodium Potassium Chloride Carbon Dioxide Anion Gap BUN Creatinine Est GFR ( Amer) Est GFR (Non-Af Amer) BUN/Creatinine Ratio Glucose POC Glucose (mg/dL) 132 H 204 H Calcium C-Reactive Protein Procalcitonin 1.3 H Influenza A (Rapid) Influenza B (Rapid) 07/07/16 07/07/16 07/07/16 11:13 11:26 13:02 WBC RBC Hgb Hct MCV MCH MCHC RDW Plt Count MPV Neut % (Auto) Lymph % (Auto) [place] % (Auto) Eos % (Auto) Baso % (Auto) Absolute Neuts (auto) Absolute Lymphs (auto) Absolute Monos (auto) Absolute Eos (auto) Absolute Basos (auto) Absolute Nucleated RBC Nucleated RBC % Patient Temperature ABG pH ABG pCO2 ABG pO2 ABG HCO3 ABG O2 Saturation ABG Base Excess Respiration Rate Ventilator Type Vent Mode FiO2 Inspiratory Time PEEP Pressure Support Pressure Control EPAP IPAP BiPAP Sodium Potassium Chloride Carbon Dioxide Anion Gap BUN Creatinine Est GFR ( Amer) Est GFR (Non-Af Amer) BUN/Creatinine Ratio Glucose POC Glucose (mg/dL) 186 H 147 H Calcium C-Reactive Protein Procalcitonin Influenza A (Rapid) Negative Influenza B (Rapid) Negative 07/07/16 07/07/16 07/07/16 17:34 18:10 19:34 WBC RBC Hgb Hct MCV MCH MCHC RDW Plt Count MPV Neut % (Auto) Lymph % (Auto) [place] % (Auto) Eos % (Auto) Baso % (Auto) Absolute Neuts (auto) Absolute Lymphs (auto) Absolute Monos (auto) Absolute Eos (auto) Absolute Basos (auto) Absolute Nucleated RBC Nucleated RBC % Patient Temperature Not Reportable ABG pH 7.40 ABG pCO2 35 ABG pO2 58 L* ABG HCO3 22.8 ABG O2 Saturation 93.5 L ABG Base Excess -2.5 L Respiration Rate Not Reportable Ventilator Type Not Reportable Vent Mode Not Reportable FiO2 6 Inspiratory Time Not Reportable PEEP Not Reportable Pressure Support Not Reportable Pressure Control Not Reportable EPAP Not Reportable IPAP Not Reportable BiPAP Not Reportable Sodium Potassium Chloride Carbon Dioxide Anion Gap BUN Creatinine Est GFR ( Amer) Est GFR (Non-Af Amer) BUN/Creatinine Ratio Glucose POC Glucose (mg/dL) 123 H 144 H Calcium C-Reactive Protein Procalcitonin Influenza A (Rapid) Influenza B (Rapid) 07/07/16 07/08/16 07/08/16 21:47 05:05 05:05 WBC 9.8 RBC 3.48 L Hgb 10.1 L Hct 30 L MCV 86 MCH 29 MCHC 34 RDW 13 Plt Count 111 L MPV 8 Neut % (Auto) 89.4 H Lymph % (Auto) 6.3 L [place] % (Auto) 4.0 Eos % (Auto) 0 Baso % (Auto) 0.3 Absolute Neuts (auto) 8.8 H Absolute Lymphs (auto) 0.6 L Absolute Monos (auto) 0.4 Absolute Eos (auto) 0 Absolute Basos (auto) 0 Absolute Nucleated RBC 0 Nucleated RBC % 0 Patient Temperature ABG pH ABG pCO2 ABG pO2 ABG HCO3 ABG O2 Saturation ABG Base Excess Respiration Rate Ventilator Type Vent Mode FiO2 Inspiratory Time PEEP Pressure Support Pressure Control EPAP IPAP BiPAP Sodium 127 L Potassium 3.8 Chloride 99 L Carbon Dioxide 23 Anion Gap 5 BUN 21 Creatinine 0.69 Est GFR ( Amer) 148.5 Est GFR (Non-Af Amer) 115.4 BUN/Creatinine Ratio 30.4 H Glucose 186 H POC Glucose (mg/dL) 172 H Calcium 7.7 L C-Reactive Protein 98.75 H Procalcitonin Influenza A (Rapid) Influenza B (Rapid) Radiology Results: Patient Name: DARY TORRES Medical Record#: [id number] Ordering Physician: Gabriella Seth MD Acct.#: [id number] : 1950 Age: 66 Sex: M Location: [facility] Exam Date: 07/06/162327 ADM Status: ADM IN Order Information: CHEST AP PORTABLE Accession Number: [id number] CPT: 93092 INDICATION: Increased oxygen the mass. COMPARISON: Comparison is made with a prior chest x-ray study from July 06, 2016. TECHNIQUE: A portable view of the chest was obtained. FINDINGS: The patient is status post sternotomy. The heart is within normal limits in size. There is a focal infiltrate present at the medial right lung base which is new from the prior study. No pleural effusion is seen. IMPRESSION: NEW RIGHT BASILAR INFILTRATE. <Electronically signed by Oliver Bahena MD in OV> 07/07/16743 Dictated By: Oliver Bahena MD Dictated Date/Time: 07/07/16743 Transcribed Date/Time: 07/07/16742 Copy to: CC:Jason Chaudhary MD; Gabriella Seth MD; Jaylon Torres MD Imaging - [facility] [address] [place] [address] ph [phone]) ph [phone]) ph ([phone]) 1 of 1 Assessment - Problem List Assessment: Patient Problems Acute bronchitis (Acute) Delirium (Acute) Diabetic ketoacidosis (Acute) Fall (Acute) Lung infiltrate (Acute) Pneumonia involving right lung (Acute) Type 1 diabetes mellitus with diabetic retinopathy (Acute) Coronary artery disease (Chronic) Depression (Chronic) Essential hypertension (Chronic) History of CVA (cerebrovascular accident) (Chronic) Hypercholesterolemia (Chronic) Insulin pump status (Chronic) S/P CABG x 5 (Chronic) Plan: Acute bronchitis (Acute) Lung infiltrate (Acute) Pneumonia involving right lung (Acute) I have reviewed his CXR from today. He has bibasilar infiltrates. He had an aspiration event last night that exacerbated his poor oxygenation. However, this has improved overnight. He remains febrile and requiring a high fIO2. I will keep him in the ICU incase he develops an exacerbation of acute respiratory failure, progression of his pneumonia. I note that his WBC has improved and I am taking this as a sign that the infection is under control. However, he may still develop a significant inflammatory response in his lungs which might progress to ARDS. I will start him on prednisone 20 mg twice daily as this doesn't look like influenza. Delirium (Acute) This is clearing Diabetic ketoacidosis (Acute) His glucose levels are in the upper 100s, but stable on basal/bolus insulin Fall (Acute) no major injuries Type 1 diabetes mellitus with diabetic retinopathy (Acute) He is managing with intermittent insulin therapy Coronary artery disease (Chronic) no signs of acute ischemia Depression (Chronic) secondary diagnosis Essential hypertension (Chronic) stable BP History of CVA (cerebrovascular accident) (Chronic) His mental state was readily affected by his pneumonia Hypercholesterolemia (Chronic) continue current Rx Insulin pump status (Chronic) This is discontinued S/P CABG x 5 (Chronic) He had a worrying evening, but this morning he appears a little improved. I will keep him in the ICU today in case he develops worsening infiltrates/ respiratory failure. Phone call to Elisa (his ) - I explained the status and in particular that he could develop worsening lung problems due to inflammation.
--- NOTE | 2016-07-08 07:53 | RAD ---
INDICATION: Diabetic ketoacidosis COMPARISON: Most recent comparison chest x-ray dated July 06, 2016 TECHNIQUE: Single AP portable view of the chest was obtained. FINDINGS: Image quality is compromised due to the relative inferiority of a portable chest x-ray. There is a mild degree of cardiomegaly similar in appearance to the previous chest x-ray. There is patchy infiltrate overlying the bilateral central lungs and extending laterally at the inferior margin of the right upper lobe. There is left costophrenic angle blunting new since the previous chest x-ray.. Visualized bones are normal for the patient's age. IMPRESSION: Progressive infiltration relative to the previous chest x-ray could be the consequence of worsening cardiogenic pulmonary edema with development of a small left pleural effusion. Infectious pneumonia or pneumonitis are considered as well.
[2016-07-08] MEDS: Pantoprazole IV* 40 MG IV SCH (09:14)
[2016-07-08] MEDS: Insulin LISPRO* 1 UNITS UNIT SUBCUT SCH ×8 (09:15→21:28)
[2016-07-08] MEDS: Venlafaxine EXT RELEASE CAP* 75 MG PO SCH (09:17)
[2016-07-08] MEDS: Methylphenidate TAB* 5 MG PO SCH ×2 (09:17→18:31)
[2016-07-08] MEDS: Insulin GLARGINE(*) 1 UNITS UNIT SUBCUT SCH ×2 (09:17→21:28)
[2016-07-08] MEDS: predniSONE TAB* 20 MG PO SCH ×2 (09:18→21:29)
[2016-07-08] MEDS: Sertraline* 50 MG TAB PO SCH (09:18)
[2016-07-08] MEDS: Aspirin EC Low Dose* 81 MG TAB.EC PO SCH (09:18)
[2016-07-08] MEDS: Clopidogrel TAB* 75 MG PO SCH (09:18)
[2016-07-08] MEDS: Atorvastatin* 20 MG TAB PO SCH (09:19)
[2016-07-08] MEDS: Docusate CAP* 100 MG PO SCH ×2 (09:19→21:28)
[2016-07-08] MEDS: Acetaminophen TAB* 325 MG PO PRN (10:17)
[2016-07-08] MEDS: traMADol TAB* 50 MG PO PRN (22:47)
[2016-07-09] MEDS: Azithromycin IV(*) 500 MG in NS 0.9% 250 ML* 250 ML IVPB SCH (01:42)
[2016-07-09] MEDS: Piperac/Tazob 3.375 gm in NS* 3.375 GM/100 ML BAG IVPB SCH ×4 (02:05→18:40)
[2016-07-09 05:56] LABS: Hematocrit 30 % (42-52); Mean Corpuscular HGB Conc 34 g/dl (31-36); Mean Corpuscular Hemoglobin 29 pg (27-31); Mean Corpuscular Volume 86 fL (80-94); Mean Platelet Volume 8 um3 (7.4-10.4); Red Blood Count 3.46 10^6/ul (4.0-5.4); Red Cell Distribution Width 13 % (10.5-15); White Blood Count 11.4 10^3/ul (3.5-10.8)
[2016-07-09] MEDS: Heparin VIAL(*) 5000 UNITS/ML VIAL (FIVE THOUSAND) SUBCUT SCH ×3 (05:59→21:20)
[2016-07-09 06:16] LABS: Albumin 2.7 g/dL (3.2-5.2); BUN/Creatinine Ratio 29.6 (8-20); C Reactive Protein 99.78 mg/L (< 5.00); Calcium 7.9 mg/dL (8.6-10.3); Direct Bilirubin 0.2 mg/dL (0.03-0.18); EGFR Non-African American 153.2 (>60); Globulin 2.1 g/dL (2-4); Indirect Bilirubin 0.4 mg/dL (0.3-1.0); Potassium 3.9 mmol/L (3.5-5.0); Total Bilirubin 0.6 mg/dL (0.2-1.0); Total Protein 4.8 g/dL (6.4-8.9)
--- NOTE | 2016-07-09 07:43 | PN ---
Subjective - Subjective Reason for Note: Progress Note History: He has had no progression of his respiratory distress overnight and he is no longer febrile. He does have dyspnea and a productive cough. He has no chest pain or palpitations. His mental state is clear today. He has an appetite and has not developed diarrhea from the antibacterials. Active Problems: Active Problems Acute bronchitis (Acute) J20.9 Delirium (Acute) R41.0 Diabetic ketoacidosis (Acute) E13.10 Fall (Acute) Lung infiltrate (Acute) R91.8 Pneumonia involving right lung (Acute) J18.9 Type 1 diabetes mellitus with diabetic retinopathy (Acute) E10.319 Coronary artery disease (Chronic) I25.10 Depression (Chronic) F32.9 Essential hypertension (Chronic) I10 History of CVA (cerebrovascular accident) (Chronic) Z86.73 Hypercholesterolemia (Chronic) E78.00 Insulin pump status (Chronic) Z96.41 S/P CABG x 5 (Chronic) Z95.1 Current Medications: Current Medications Acetaminophen (Tylenol Tab*) 650 mg PO Q6H PRN PRN Reason: FEVER/PAIN Last Admin: 07/08/16 10:17 Dose: 650 mg Acetaminophen (Tylenol Tab*) 650 mg PO Q4H PRN PRN Reason: FEVER Aspirin (Aspirin Ec Low Dose*) 81 mg PO [facility] Last Admin: 07/08/16 09:18 Dose: 81 mg Atorvastatin Calcium (Lipitor*) 20 mg PO [facility] Last Admin: 07/08/16 09:19 Dose: 20 mg Clopidogrel Bisulfate (Plavix Tab*) 75 mg PO [facility] Last Admin: 07/08/16 09:18 Dose: 75 mg Dextrose (D50w Syringe 50 Ml*) 12.5 gm IV PUSH .FOR FS < 60 - SS PRN PRN Reason: FS < 60 Last Admin: 07/06/16 19:42 Dose: 12.5 gm Docusate Sodium (Colace Cap*) 200 mg PO BID [facility] Last Admin: 07/08/16 21:28 Dose: 200 mg Heparin Sodium (Porcine) (Heparin Vial(*)) 5,000 units SUBCUT Q8HR [facility] Last Admin: 07/09/16 05:59 Dose: 5,000 units Piperacillin Sod/Tazobactam Sod (Zosyn 3.375 Gm In Ns Premix*) 3.375 gm in 100 mls @ 200 mls/hr IVPB Q6H [facility] Last Admin: 07/09/16 06:28 Dose: 200 mls/hr Azithromycin 500 mg/ Sodium (Chloride) 250 mls @ 250 mls/hr IVPB Q24H [facility] Last Admin: 07/09/16 01:42 Dose: 250 mls/hr Insulin Glargine (Lantus(*)) 24 units SUBCUT Q12H [facility] Last Admin: 07/08/16 21:28 Dose: 24 units Insulin Human Lispro (Humalog*) 1 units SUBCUT FS ACHS ICU [facility] PRN Reason: Protocol Last Admin: 07/08/16 21:27 Dose: 8 units Insulin Human Lispro (Humalog*) 0 units SUBCUT ACHS [facility] PRN Reason: Protocol Last Admin: 07/08/16 21:28 Dose: Not Given Melatonin (Melatonin (Nf)) 3 mg PO BEDTIME PRN; Protocol PRN Reason: Sleep Methylphenidate HCl (Ritalin Tab*) 5 mg PO 0900,1800 [facility] Last Admin: 07/08/16 18:31 Dose: 5 mg Ondansetron HCl (Zofran Inj*) 4 mg IV Q6H PRN PRN Reason: NAUSEA Last Admin: 07/07/16 08:20 Dose: 4 mg Pantoprazole Sodium (Protonix Iv*) 40 mg IV DAILY [facility] Last Admin: 07/08/16 09:14 Dose: 40 mg Prednisone (Deltasone Tab*) 20 mg PO BID [facility] Last Admin: 07/08/16 21:29 Dose: 20 mg Prochlorperazine Edisylate (Compazine Inj*) 10 mg IV Q6H PRN PRN Reason: NAUSEA Sertraline HCl (Zoloft*) 150 mg PO DAILY [facility] Last Admin: 07/08/16 09:18 Dose: 150 mg Tramadol HCl (Ultram*) 50 mg PO QID PRN PRN Reason: PAIN - MODERATE Last Admin: 07/08/16 22:47 Dose: 50 mg Venlafaxine HCl (Effexor Xr Cap*) 225 mg PO QAM [facility] PRN Reason: Protocol Last Admin: 07/08/16 09:17 Dose: 225 mg Home Medications: Home Medications Medication Instructions Recorded Confirmed Type Alprazolam [Xanax] 0.5 mg PO BEDTIME PRN 05/25/12 07/05/16 History Aspirin 81 mg PO QAM 05/25/12 07/05/16 History Atorvastatin* [Lipitor*] 20 mg PO QAM 05/25/12 07/05/16 History Clopidogrel Bisulfate [Clopidogrel] 75 mg PO QAM 05/25/12 07/05/16 History Diltiazem HCl Coated Beads 240 mg PO QAM 05/25/12 07/05/16 History [Diltiazem Cd] Hydrochlorothiazide 50 mg PO QAM 05/25/12 07/05/16 History Insulin Lispro [Humalog] 30 unit SUBCUT SEE INSTRUCTIONS 05/25/12 07/05/16 History Methylphenidate HCl [Ritalin] 5 mg PO BID 05/25/12 07/05/16 History Telmisartan [Micardis] 80 mg PO QAM 05/25/12 07/05/16 History Venlafaxine CAP (NF) [Effexor CAP 3 tab PO QAM 05/25/12 07/05/16 History (NF)] traMADol TAB* [Ultram*] 50 mg PO QID PRN 05/25/12 07/05/16 History Cetirizine* [ZyrTEC*] 10 mg PO DAILY 08/27/15 07/05/16 History Sertraline* [Zoloft*] 150 mg PO DAILY 08/27/15 07/05/16 History diPHENhydraMINE PO* [Benadryl PO*] 25 mg PO QAM 08/27/15 07/05/16 History Allergies: Allergies Allergy/AdvReac Type Severity Reaction Status Date / Time Latex Allergy RASH, Verified 07/05/16 22:20 IRRITATION Meperidine [From Demerol HCl] AdvReac NIGHTMARES, Verified 07/05/16 22:20 CHILLS, SWEATS Objective - Vital Signs Vital Signs: Vital Signs 07/08/16 07/08/16 07/08/16 08:00 09:00 10:00 Temperature 101 F Pulse Rate 82 89 88 Respiratory 30 22 38 Rate Blood Pressure 126/59 129/61 130/61 (mmHg) O2 Sat by Pulse 97 94 95 Oximetry 07/08/16 07/08/16 07/08/16 11:00 11:23 12:00 Temperature 99.2 F Pulse Rate 91 84 Respiratory 35 33 Rate Blood Pressure 123/59 (mmHg) O2 Sat by Pulse 94 94 94 Oximetry 07/08/16 07/08/16 07/08/16 12:12 13:00 14:00 Temperature Pulse Rate 67 77 78 Respiratory 27 26 33 Rate Blood Pressure 108/52 100/56 93/52 (mmHg) O2 Sat by Pulse 94 95 96 Oximetry 07/08/16 07/08/16 07/08/16 15:00 15:56 16:00 Temperature 98.1 F Pulse Rate 69 69 Respiratory 31 32 Rate Blood Pressure 99/51 102/51 (mmHg) O2 Sat by Pulse 97 97 Oximetry 07/08/16 07/08/16 07/08/16 17:00 18:00 19:00 Temperature Pulse Rate 67 69 81 Respiratory 33 28 27 Rate Blood Pressure 99/55 98/57 94/66 (mmHg) O2 Sat by Pulse 98 98 100 Oximetry 07/08/16 07/08/16 07/08/16 20:00 21:00 22:00 Temperature 98.7 F Pulse Rate 77 74 74 Respiratory 34 27 33 Rate Blood Pressure 95/52 99/51 112/54 (mmHg) O2 Sat by Pulse 99 100 99 Oximetry 07/08/16 07/08/16 07/08/16 23:00 23:03 23:07 Temperature Pulse Rate 77 81 Respiratory 32 32 27 Rate Blood Pressure 116/55 (mmHg) O2 Sat by Pulse 98 98 Oximetry 07/08/16 07/09/16 07/09/16 23:36 00:00 00:01 Temperature 100.3 F Pulse Rate 84 82 Respiratory 28 38 Rate Blood Pressure 124/59 (mmHg) O2 Sat by Pulse 93 96 Oximetry 07/09/16 07/09/16 07/09/16 01:00 01:37 02:00 Temperature Pulse Rate 88 73 Respiratory 35 42 43 Rate Blood Pressure 120/64 113/59 (mmHg) O2 Sat by Pulse 89 94 Oximetry 07/09/16 07/09/16 07/09/16 02:16 03:00 03:48 Temperature 98.2 F Pulse Rate 72 Respiratory 27 42 Rate Blood Pressure 117/65 (mmHg) O2 Sat by Pulse 94 Oximetry 07/09/16 07/09/16 07/09/16 04:00 05:00 05:32 Temperature Pulse Rate 69 66 Respiratory 32 33 33 Rate Blood Pressure 120/61 118/63 (mmHg) O2 Sat by Pulse 97 97 Oximetry 07/09/16 06:00 Temperature Pulse Rate 67 Respiratory 33 Rate Blood Pressure 123/63 (mmHg) O2 Sat by Pulse 96 Oximetry - Intake and Output Intake and Output: Intake & Output 07/06/16 07/07/16 07/08/16 07/09/16 11:59 11:59 11:59 11:59 Intake Total 4140 2861 4734.9 2222 Output Total 300 300 700 Balance 4140 2561 4434.9 1522 Weight 150 lb 9.211 oz 156 lb 8.451 oz 158 lb 4.67 oz Intake: IV Fluids 3404 1056 1111 595 D5NS 37 986 NS (0.9%) 3380 NS KVO 24 1019 NS and Zosyn 125 595 IVPB 100 1057 137 NS KVO 100 NS and Zosyn 1057 137 Medicated IV 71 75 6.9 CC - Insulin 71 75 6.9 Oral 565 1730 2560 1490 Output: Urine 300 300 700 Other: Estimated Void Small Medium Large Date of Last Bowel 07/06/16 07/06/16 07/07/2016 Movement # Bowel Movements 1 1 1 Estimated Stool Amount Medium Medium Small # Voids 1 3 1 ADLs: Meal Record Start: 07/05/16 23: 49 Freq: ,13,18 Status: Active Document 07/06/16 09:00 [id number] (Rec: 07/06/16 09:31 [id number] ICU-C15) Document 07/06/16 13:00 [id number] (Rec: 07/06/16 14:41 [id number] ICU-C10) Document 07/06/16 18:00 [id number] (Rec: 07/06/16 19:33 [id number] ICU-C10) Document 07/07/16 09:00 [id number] (Rec: 07/07/16 10:36 [id number] ICU-C15) Document 07/07/16 13:00 [id number] (Rec: 07/07/16 14:30 [id number] ICU-C15) Document 07/07/16 18:00 [id number] (Rec: 07/07/16 18:53 [id number] ICU-M02) Document 07/08/16 09:00 [id number] (Rec: 07/08/16 09:50 [id number] ICU-C15) Document 07/08/16 13:00 [id number] (Rec: 07/08/16 13:15 [id number] ICU-M20) Document 07/08/16 18:00 [id number] (Rec: 07/08/16 18:41 [id number] ICU-C15) Intake and Output Start: 07/05/16 23: 49 Freq: 06,14,22 Status: Active Document 07/06/16 06:00 [id number] (Rec: 07/06/16 06:12 [id number] ICU-C14) Document 07/06/16 11:40 [id number] (Rec: 07/06/16 11:40 [id number] ICU-C15) Document 07/06/16 13:50 [id number] (Rec: 07/06/16 13:51 [id number] ICU-C16) Document 07/06/16 22:00 [id number] (Rec: 07/06/16 23:01 [id number] ICU-C15) Document 07/07/16 06:00 [id number] (Rec: 07/07/16 07:53 [id number] ICU-C22) Document 07/07/16 14:00 [id number] (Rec: 07/07/16 14:47 [id number] ICU-C15) Document 07/07/16 15:46 [id number] (Rec: 07/07/16 15:47 [id number] ICU-C15) Document 07/07/16 18:53 [id number] (Rec: 07/07/16 18:53 [id number] ICU-M02) Document 07/07/16 18:53 [id number] (Rec: 07/07/16 18:53 [id number] ICU-M02) Document 07/07/16 22:00 [id number] (Rec: 07/07/16 23:19 [id number] ICU-C15) Document 07/08/16 06:00 [id number] (Rec: 07/08/16 06:45 [id number] ICU-C15) Document 07/08/16 09:35 [id number] (Rec: 07/08/16 09:35 [id number] ICU-C15) Document 07/08/16 13:38 [id number] (Rec: 07/08/16 13:39 [id number] ICU-C15) Document 07/08/16 16:30 [id number] (Rec: 07/08/16 16:30 [id number] ICU-C15) Document 07/08/16 21:33 [id number] (Rec: 07/08/16 21:33 [id number] ICU-C14) Document 07/09/16 05:43 [id number] (Rec: 07/09/16 05:44 [id number] ICU-C14) - Physical Exam General: No Anemia, No Jaundice, No Clubbing Lungs and Chest: Yes: Chest Expansion Symetrica, Percussion Note Resonant, Crackles, Wheezes. No: Chest Expansion Full - shallow breaths, Vessicular Breath Sounds, Respiratory Distress, Use of Accessory Muscles Heart Rate and Rhythm: Regular JVP: Elevated Additional Cardiovascular: Yes: Normal Heart Sounds. No: Heart Murmur, Pedal Edema Abdominal Exam: Yes: Soft, Bowel Sounds Present. No: Distention, Abdominal Mass , Abdominal Tenderness Results - Results Lab Results: Laboratory Results - last 24 hr 07/07/16 07/08/16 07/08/16 10:35 08:43 12:29 WBC RBC Hgb Hct MCV MCH MCHC RDW Plt Count MPV Neut % (Auto) Lymph % (Auto) [place] % (Auto) Eos % (Auto) Baso % (Auto) Absolute Neuts (auto) Absolute Lymphs (auto) Absolute Monos (auto) Absolute Eos (auto) Absolute Basos (auto) Absolute Nucleated RBC Nucleated RBC % Sodium Potassium Chloride Carbon Dioxide Anion Gap BUN Creatinine Est GFR ( Amer) Est GFR (Non-Af Amer) BUN/Creatinine Ratio Glucose POC Glucose (mg/dL) 248 H 216 H Calcium Total Bilirubin Direct Bilirubin Indirect Bilirubin AST ALT Alkaline Phosphatase C-Reactive Protein Total Protein Albumin Globulin Albumin/Globulin Ratio Cold Agglutinin Titer TNP 07/08/16 07/08/16 07/09/16 17:01 20:05 05:40 WBC RBC Hgb Hct MCV MCH MCHC RDW Plt Count MPV Neut % (Auto) Lymph % (Auto) [place] % (Auto) Eos % (Auto) Baso % (Auto) Absolute Neuts (auto) Absolute Lymphs (auto) Absolute Monos (auto) Absolute Eos (auto) Absolute Basos (auto) Absolute Nucleated RBC Nucleated RBC % Sodium 128 L Potassium 3.9 Chloride 100 L Carbon Dioxide 25 Anion Gap 3 BUN 16 Creatinine 0.54 L Est GFR ( Amer) 197.0 Est GFR (Non-Af Amer) 153.2 BUN/Creatinine Ratio 29.6 H Glucose 121 H POC Glucose (mg/dL) 283 H 259 H Calcium 7.9 L Total Bilirubin 0.60 Direct Bilirubin 0.20 H Indirect Bilirubin 0.4 AST 22 ALT 30 Alkaline Phosphatase 64 C-Reactive Protein 99.78 H Total Protein 4.8 L Albumin 2.7 L Globulin 2.1 Albumin/Globulin Ratio 1.3 Cold Agglutinin Titer 07/09/16 05:40 WBC 11.4 H RBC 3.46 L Hgb 10.0 L Hct 30 L MCV 86 MCH 29 MCHC 34 RDW 13 Plt Count 113 L MPV 8 Neut % (Auto) 92.8 H Lymph % (Auto) 3.[address] [place] % (Auto) 3.7 Eos % (Auto) 0 Baso % (Auto) 0.1 Absolute Neuts (auto) 10.6 H Absolute Lymphs (auto) 0.4 L Absolute Monos (auto) 0.4 Absolute Eos (auto) 0 Absolute Basos (auto) 0 Absolute Nucleated RBC 0.01 Nucleated RBC % 0 Sodium Potassium Chloride Carbon Dioxide Anion Gap BUN Creatinine Est GFR ( Amer) Est GFR (Non-Af Amer) BUN/Creatinine Ratio Glucose POC Glucose (mg/dL) Calcium Total Bilirubin Direct Bilirubin Indirect Bilirubin AST ALT Alkaline Phosphatase C-Reactive Protein Total Protein Albumin Globulin Albumin/Globulin Ratio Cold Agglutinin Titer Assessment - Problem List Assessment: Patient Problems Acute bronchitis (Acute) Delirium (Acute) Diabetic ketoacidosis (Acute) Fall (Acute) Lung infiltrate (Acute) Pneumonia involving right lung (Acute) Type 1 diabetes mellitus with diabetic retinopathy (Acute) Coronary artery disease (Chronic) Depression (Chronic) Essential hypertension (Chronic) History of CVA (cerebrovascular accident) (Chronic) Hypercholesterolemia (Chronic) Insulin pump status (Chronic) S/P CABG x 5 (Chronic) Plan: Acute bronchitis (Acute) Lung infiltrate (Acute) Pneumonia involving right lung (Acute) He continues to require a [place] with an fIO2 of 3 liters. He had a swallowing evaluation. I will obtain another CXR. I will add a BNP to ensure he has no evidence of volume overload contributing to his CXR picture from yesterday. Delirium (Acute) This has resolved Diabetic ketoacidosis (Acute) This has resolved Fall (Acute) no lasting sequelae -- he will have PT to mobilize today Type 1 diabetes mellitus with diabetic retinopathy (Acute) His glycemic control is on target - I note he is taking prednisone 20 mg twice daily - I won' t reduce the insulin dose just yet. Coronary artery disease (Chronic) no chest pain Depression (Chronic) secondary diagnosis Essential hypertension (Chronic) not exacerbated History of CVA (cerebrovascular accident) (Chronic) Hypercholesterolemia (Chronic) secondary diagnosis Insulin pump status (Chronic) not used at present S/P CABG x 5 (Chronic) I discussed the above with the patient and called his Elisa for an update
--- NOTE | 2016-07-09 08:44 | RAD ---
INDICATION: Respiratory distress. Pneumonia. COMPARISON: July 08, 2016 TECHNIQUE: An AP portable view obtained at 0750 hours is submitted. FINDINGS: Bones/Soft Tissues: There are no acute bony findings. There is sternotomy Cardiomediastinal: The cardiomediastinal silhouette is normal. Lungs: There is airspace disease in the right upper and lower lobes and the left lower lobe with mild progression. These could all be infectious infiltrates but there may be a component of pulmonary interstitial edema. Pleura: [id number] size bilateral pleural effusions. Other: None IMPRESSION: BILATERAL AIRSPACE DISEASE WITH MILD PROGRESSION. CONSIDER ACUTE PNEUMONITIS WITH PROGRESSION VERSUS WORSENING CHF
[2016-07-09] MEDS: Insulin LISPRO* 1 UNITS UNIT SUBCUT SCH ×9 (08:56→22:03)
[2016-07-09] MEDS: Docusate CAP* 100 MG PO SCH ×2 (09:48→22:03)
[2016-07-09] MEDS: predniSONE TAB* 20 MG PO SCH ×2 (09:52→21:20)
[2016-07-09] MEDS: Methylphenidate TAB* 5 MG PO SCH ×2 (09:52→18:37)
[2016-07-09] MEDS: Pantoprazole IV* 40 MG IV SCH (09:52)
[2016-07-09] MEDS: Venlafaxine EXT RELEASE CAP* 75 MG PO SCH (09:52)
[2016-07-09] MEDS: Sertraline* 50 MG TAB PO SCH (09:53)
[2016-07-09] MEDS: Insulin GLARGINE(*) 1 UNITS UNIT SUBCUT SCH ×2 (09:53→21:19)
[2016-07-09] MEDS: Aspirin EC Low Dose* 81 MG TAB.EC PO SCH (09:53)
[2016-07-09] MEDS: Clopidogrel TAB* 75 MG PO SCH (09:53)
[2016-07-09] MEDS: Atorvastatin* 20 MG TAB PO SCH (09:53)
[2016-07-09] MEDS: Acetaminophen TAB* 325 MG PO PRN (21:19)
[2016-07-10] MEDS: Piperac/Tazob 3.375 gm in NS* 3.375 GM/100 ML BAG IVPB SCH ×4 (01:10→20:21)
[2016-07-10] MEDS: Azithromycin IV(*) 500 MG in NS 0.9% 250 ML* 250 ML IVPB SCH (01:40)
[2016-07-10] MEDS: Heparin VIAL(*) 5000 UNITS/ML VIAL (FIVE THOUSAND) SUBCUT SCH ×3 (05:30→21:21)
[2016-07-10 05:39] LABS: Hematocrit 31 % (42-52); Hemoglobin 10.7 g/dl (14.0-18.0); Mean Corpuscular HGB Conc 34 g/dl (31-36); Mean Corpuscular Hemoglobin 29 pg (27-31); Mean Corpuscular Volume 86 fL (80-94); Mean Platelet Volume 8 um3 (7.4-10.4); Red Blood Count 3.64 10^6/ul (4.0-5.4); Red Cell Distribution Width 13 % (10.5-15)
[2016-07-10 05:54] LABS: Albumin 2.6 g/dL (3.2-5.2); BUN/Creatinine Ratio 23.6 (8-20); C Reactive Protein 67.24 mg/L (< 5.00); Calcium 8.1 mg/dL (8.6-10.3); Direct Bilirubin 0.2 mg/dL (0.03-0.18); EGFR African American 192.9 (>60); Globulin 2.2 g/dL (2-4); Indirect Bilirubin 0.4 mg/dL (0.3-1.0); Potassium 4.1 mmol/L (3.5-5.0); Total Bilirubin 0.6 mg/dL (0.2-1.0); Total Protein 4.8 g/dL (6.4-8.9)
[2016-07-10] MEDS: Insulin GLARGINE(*) 1 UNITS UNIT SUBCUT SCH ×2 (08:55→20:31)
[2016-07-10] MEDS: Pantoprazole IV* 40 MG IV SCH (09:08)
[2016-07-10] MEDS: Docusate CAP* 100 MG PO SCH ×2 (09:12→21:21)
[2016-07-10] MEDS: Insulin LISPRO* 1 UNITS UNIT SUBCUT SCH ×8 (09:12→20:37)
[2016-07-10] MEDS: Sertraline* 50 MG TAB PO SCH (09:12)
[2016-07-10] MEDS: Venlafaxine EXT RELEASE CAP* 75 MG PO SCH (09:13)
[2016-07-10] MEDS: Clopidogrel TAB* 75 MG PO SCH (09:13)
[2016-07-10] MEDS: Atorvastatin* 20 MG TAB PO SCH (09:13)
[2016-07-10] MEDS: predniSONE TAB* 20 MG PO SCH ×2 (09:13→21:21)
[2016-07-10] MEDS: Methylphenidate TAB* 5 MG PO SCH ×2 (09:13→18:09)
[2016-07-10] MEDS: Aspirin EC Low Dose* 81 MG TAB.EC PO SCH (09:13)
--- NOTE | 2016-07-10 09:57 | PN ---
Subjective - Subjective Reason for Note: Progress Note History: He is more stable and doing better. He continues to have a cough, but is not troubled by dyspnea - he is using a [place] at 3 l. His oxygenation remains good. His glycemic control is good despite prednisone. He has developed some edema of his feet. He had some diarrhea overnight. Active Problems: Active Problems Acute bronchitis (Acute) J20.9 Lung infiltrate (Acute) R91.8 Pneumonia involving right lung (Acute) J18.9 Type 1 diabetes mellitus with diabetic retinopathy (Acute) E10.319 Volume overload (Acute) E87.70 Coronary artery disease (Chronic) I25.10 Depression (Chronic) F32.9 Essential hypertension (Chronic) I10 History of CVA (cerebrovascular accident) (Chronic) Z86.73 Hypercholesterolemia (Chronic) E78.00 Insulin pump status (Chronic) Z96.41 S/P CABG x 5 (Chronic) Z95.1 Current Medications: Current Medications Acetaminophen (Tylenol Tab*) 650 mg PO Q6H PRN PRN Reason: FEVER/PAIN Last Admin: 07/09/16 21:19 Dose: 650 mg Acetaminophen (Tylenol Tab*) 650 mg PO Q4H PRN PRN Reason: FEVER Aspirin (Aspirin Ec Low Dose*) 81 mg PO [facility] Last Admin: 07/10/16 09:13 Dose: 81 mg Atorvastatin Calcium (Lipitor*) 20 mg PO [facility] Last Admin: 07/10/16 09:13 Dose: 20 mg Clopidogrel Bisulfate (Plavix Tab*) 75 mg PO [facility] Last Admin: 07/10/16 09:13 Dose: 75 mg Dextrose (D50w Syringe 50 Ml*) 12.5 gm IV PUSH .FOR FS < 60 - SS PRN PRN Reason: FS < 60 Last Admin: 07/06/16 19:42 Dose: 12.5 gm Docusate Sodium (Colace Cap*) 200 mg PO BID [facility] Last Admin: 07/10/16 09:12 Dose: Not Given Heparin Sodium (Porcine) (Heparin Vial(*)) 5,000 units SUBCUT Q8HR [facility] Last Admin: 07/10/16 05:30 Dose: 5,000 units Piperacillin Sod/Tazobactam Sod (Zosyn 3.375 Gm In Ns Premix*) 3.375 gm in 100 mls @ 200 mls/hr IVPB Q6H [facility] Last Admin: 07/10/16 09:08 Dose: 200 mls/hr Azithromycin 500 mg/ Sodium (Chloride) 250 mls @ 250 mls/hr IVPB Q24H [facility] Last Admin: 07/10/16 01:40 Dose: 250 mls/hr Insulin Glargine (Lantus(*)) 24 units SUBCUT Q12H [facility] Last Admin: 07/10/16 08:55 Dose: 24 units Insulin Human Lispro (Humalog*) 1 units SUBCUT FS ACHS ICU [facility] PRN Reason: Protocol Last Admin: 07/09/16 22:03 Dose: Not Given Insulin Human Lispro (Humalog*) 0 units SUBCUT ACHS [facility] PRN Reason: Protocol Last Admin: 07/10/16 09:12 Dose: Not Given Melatonin (Melatonin (Nf)) 3 mg PO BEDTIME PRN; Protocol PRN Reason: Sleep Methylphenidate HCl (Ritalin Tab*) 5 mg PO 0900,1800 [facility] Last Admin: 07/10/16 09:13 Dose: 5 mg Ondansetron HCl (Zofran Inj*) 4 mg IV Q6H PRN PRN Reason: NAUSEA Last Admin: 07/07/16 08:20 Dose: 4 mg Pantoprazole Sodium (Protonix Iv*) 40 mg IV DAILY [facility] Last Admin: 07/10/16 09:08 Dose: 40 mg Prednisone (Deltasone Tab*) 20 mg PO BID [facility] Last Admin: 07/10/16 09:13 Dose: 20 mg Prochlorperazine Edisylate (Compazine Inj*) 10 mg IV Q6H PRN PRN Reason: NAUSEA Sertraline HCl (Zoloft*) 150 mg PO DAILY [facility] Last Admin: 07/10/16 09:12 Dose: 150 mg Tramadol HCl (Ultram*) 50 mg PO QID PRN PRN Reason: PAIN - MODERATE Last Admin: 07/08/16 22:47 Dose: 50 mg Venlafaxine HCl (Effexor Xr Cap*) 225 mg PO QAM [facility] PRN Reason: Protocol Last Admin: 07/10/16 09:13 Dose: 225 mg Home Medications: Home Medications Medication Instructions Recorded Confirmed Type Alprazolam [Xanax] 0.5 mg PO BEDTIME PRN 05/25/12 07/05/16 History Aspirin 81 mg PO QAM 05/25/12 07/05/16 History Atorvastatin* [Lipitor*] 20 mg PO QAM 05/25/12 07/05/16 History Clopidogrel Bisulfate [Clopidogrel] 75 mg PO QAM 05/25/12 07/05/16 History Diltiazem HCl Coated Beads 240 mg PO QAM 05/25/12 07/05/16 History [Diltiazem Cd] Hydrochlorothiazide 50 mg PO QAM 05/25/12 07/05/16 History Insulin Lispro [Humalog] 30 unit SUBCUT SEE INSTRUCTIONS 05/25/12 07/05/16 History Methylphenidate HCl [Ritalin] 5 mg PO BID 05/25/12 07/05/16 History Telmisartan [Micardis] 80 mg PO QAM 05/25/12 07/05/16 History Venlafaxine CAP (NF) [Effexor CAP 3 tab PO QAM 05/25/12 07/05/16 History (NF)] traMADol TAB* [Ultram*] 50 mg PO QID PRN 05/25/12 07/05/16 History Cetirizine* [ZyrTEC*] 10 mg PO DAILY 08/27/15 07/05/16 History Sertraline* [Zoloft*] 150 mg PO DAILY 08/27/15 07/05/16 History diPHENhydraMINE PO* [Benadryl PO*] 25 mg PO QAM 08/27/15 07/05/16 History Allergies: Allergies Allergy/AdvReac Type Severity Reaction Status Date / Time Latex Allergy RASH, Verified 07/05/16 22:20 IRRITATION Meperidine [From Demerol HCl] AdvReac NIGHTMARES, Verified 07/05/16 22:20 CHILLS, SWEATS Objective - Vital Signs Vital Signs: Vital Signs 07/09/16 07/09/16 07/09/16 10:00 11:00 12:00 Temperature 98.8 F Pulse Rate 71 70 66 Respiratory 33 27 37 Rate Blood Pressure 101/53 115/58 (mmHg) O2 Sat by Pulse 96 98 96 Oximetry 07/09/16 07/09/16 07/09/16 12:18 13:00 14:00 Temperature Pulse Rate 60 66 68 Respiratory 11 35 21 Rate Blood Pressure 121/56 117/60 123/62 (mmHg) O2 Sat by Pulse 98 98 98 Oximetry 07/09/16 07/09/16 07/09/16 15:00 16:00 17:00 Temperature 98.6 F Pulse Rate 74 65 69 Respiratory 38 2 36 Rate Blood Pressure 109/55 123/58 117/55 (mmHg) O2 Sat by Pulse 98 94 98 Oximetry 07/09/16 07/09/16 07/09/16 18:00 19:00 20:00 Temperature 99.6 F Pulse Rate 67 Respiratory 32 22 38 Rate Blood Pressure 110/65 115/55 116/60 (mmHg) O2 Sat by Pulse 98 95 99 Oximetry 07/09/16 07/09/16 07/09/16 21:00 22:00 23:00 Temperature Pulse Rate 72 78 Respiratory 34 40 37 Rate Blood Pressure 110/57 120/60 113/62 (mmHg) O2 Sat by Pulse 98 95 98 Oximetry 07/10/16 07/10/16 07/10/16 00:00 00:01 00:08 Temperature Pulse Rate 74 74 Respiratory 39 35 36 Rate Blood Pressure 109/57 (mmHg) O2 Sat by Pulse 97 97 97 Oximetry 07/10/16 07/10/16 07/10/16 01:00 01:13 02:00 Temperature 99.2 F Pulse Rate Respiratory 39 30 Rate Blood Pressure 110/57 105/52 (mmHg) O2 Sat by Pulse 96 96 Oximetry 07/10/16 07/10/16 07/10/16 03:00 04:00 04:44 Temperature 98.9 F Pulse Rate Respiratory 28 26 24 Rate Blood Pressure 113/60 123/61 (mmHg) O2 Sat by Pulse 97 98 Oximetry 07/10/16 07/10/16 07/10/16 05:00 06:00 06:44 Temperature Pulse Rate 61 61 Respiratory 32 27 30 Rate Blood Pressure 122/61 (mmHg) O2 Sat by Pulse 95 97 Oximetry 07/10/16 07/10/16 07/10/16 07:00 08:00 09:37 Temperature 97.9 F Pulse Rate 63 66 Respiratory 31 28 Rate Blood Pressure (mmHg) O2 Sat by Pulse 96 97 96 Oximetry - Intake and Output Intake and Output: Intake & Output 07/07/16 07/08/16 07/09/16 07/10/16 11:59 11:59 11:59 11:59 Intake Total 2861 4734.9 2702 1308 Output Total 300 402 195 0272 Balance 2561 4434.9 2001 Weight 156 lb 8.451 oz 158 lb 4.67 oz 167 lb 8.821 oz Intake: IV Fluids 1056 1111 595 468 Antibiotic 254 D5NS 37 986 NS (0.9%) 20 NS KVO 1019 NS and Zosyn 125 595 194 IVPB 1057 137 NS and Zosyn 1057 137 Medicated IV 75 6.9 CC - Insulin 75 6.9 Oral 1730 2560 1970 840 Output: Urine 300 484 288 3806 Other: Estimated Void Medium Large Date of Last Bowel 07/06/16 07/07/2016 07/09/16 Movement # Bowel Movements 1 1 1 Estimated Stool Amount Medium Small Large # Voids 3 1 ADLs: Meal Record Start: 07/05/16 23: 49 Freq: 09,13,18 Status: Active Document 07/06/16 09:00 [id number] (Rec: 07/06/16 09:31 [id number] ICU-C15) Document 07/06/16 13:00 [id number] (Rec: 07/06/16 14:41 RIL3457 ICU-C10) Document 07/06/16 18:00 [id number] (Rec: 07/06/16 19:33 [id number] ICU-C10) Document 07/07/16 09:00 RTX1240 (Rec: 07/07/16 10:36 BIT2052 ICU-C15) Document 07/07/16 13:00 QVW9400 (Rec: 07/07/16 14:30 [id number] ICU-C15) Document 07/07/16 18:00 PMG9754 (Rec: 07/07/16 18:53 QAW9597 ICU-M02) Document 07/08/16 09:00 ASY9265 (Rec: 07/08/16 09:50 RDI4565 ICU-C15) Document 07/08/16 13:00 CXS7672 (Rec: 07/08/16 13:15 REK8201 ICU-M20) Document 07/08/16 18:00 GQT7078 (Rec: 07/08/16 18:41 PJC1535 ICU-C15) Document 07/09/16 09:00 TSH1472 (Rec: 07/09/16 10:50 HDL1061 ICU-C15) Document 07/09/16 13:00 QNP7432 (Rec: 07/09/16 13:02 ZXL7504 ICU-C15) Document 07/09/16 18:00 OUX8839 (Rec: 07/09/16 18:07 PPN0318 ICU-C15) Intake and Output Start: 07/05/16 23: 49 Freq: 06,14,22 Status: Active Document 07/06/16 06:00 [id number] (Rec: 07/06/16 06:12 EMS6808 ICU-C14) Document 07/06/16 11:40 CZC6588 (Rec: 07/06/16 11:40 [id number] ICU-C15) Document 07/06/16 13:50 YQA2564 (Rec: 07/06/16 13:51 EEQ5606 ICU-C16) Document 07/06/16 22:00 TIT3066 (Rec: 07/06/16 23:01 TSB7612 ICU-C15) Document 07/07/16 06:00 CXB4123 (Rec: 07/07/16 07:53 WFR4186 ICU-C22) Document 07/07/16 14:00 FMI0717 (Rec: 07/07/16 14:47 WGX2610 ICU-C15) Document 07/07/16 15:46 YAH9217 (Rec: 07/07/16 15:47 QLO3600 ICU-C15) Document 07/07/16 18:53 FCX7747 (Rec: 07/07/16 18:53 TSW4844 ICU-M02) Document 07/07/16 18:53 ZDJ6099 (Rec: 07/07/16 18:53 [id number] ICU-M02) Document 07/07/16 22:00 GIU1427 (Rec: 07/07/16 23:19 [id number] ICU-C15) Document 07/08/16 06:00 [id number] (Rec: 07/08/16 06:45 [id number] ICU-C15) Document 07/08/16 09:35 [id number] (Rec: 07/08/16 09:35 WUM1143 ICU-C15) Document 07/08/16 13:38 VBV4644 (Rec: 07/08/16 13:39 JVT3345 ICU-C15) Document 07/08/16 16:30 [id number] (Rec: 07/08/16 16:30 BVG8731 ICU-C15) Document 07/08/16 21:33 QTR4942 (Rec: 07/08/16 21:33 QRY4703 ICU-C14) Document 07/09/16 05:43 YPW3242 (Rec: 07/09/16 05:44 QHA3945 ICU-C14) Document 07/09/16 14:00 AFI8727 (Rec: 07/09/16 14:31 IJJ7950 ICU-M02) Document 07/09/16 22:00 IFU7620 (Rec: 07/10/16 00:15 OZE2915 ICU-C25) Document 07/10/16 05:29 WPS4683 (Rec: 07/10/16 05:29 [id number] ICU-M02) - Physical Exam General: No Cyanosis, No Anemia, No Jaundice, No Clubbing Lungs and Chest: Yes: Chest Expansion Symetrica, Percussion Note Resonant, Crackles, Wheezes. No: Chest Expansion Full - shallow, Respiratory Distress, Use of Accessory Muscles Heart Rate and Rhythm: Regular JVP: Elevated Additional Cardiovascular: Yes: Normal Heart Sounds, Pedal Edema - trace. No: Heart Murmur Abdominal Exam: Yes: Soft, Bowel Sounds Present. No: Distention, Abdominal Mass , Abdominal Tenderness Results - Results Lab Results: Laboratory Results - last 24 hr 07/09/16 07/09/16 07/09/16 05:40 12:30 17:40 WBC RBC Hgb Hct MCV MCH MCHC RDW Plt Count MPV Neut % (Auto) Lymph % (Auto) Nuckolls % (Auto) Eos % (Auto) Baso % (Auto) Absolute Neuts (auto) Absolute Lymphs (auto) Absolute Monos (auto) Absolute Eos (auto) Absolute Basos (auto) Absolute Nucleated RBC Nucleated RBC % Sodium Potassium Chloride Carbon Dioxide Anion Gap BUN Creatinine Est GFR ( Amer) Est GFR (Non-Af Amer) BUN/Creatinine Ratio Glucose POC Glucose (mg/dL) 147 H 232 H Calcium Total Bilirubin Direct Bilirubin Indirect Bilirubin AST ALT Alkaline Phosphatase C-Reactive Protein B-Natriuretic Peptide 781 H Total Protein Albumin Globulin Albumin/Globulin Ratio 07/09/16 07/10/16 07/10/16 21:05 05:26 05:26 WBC 13.0 H RBC 3.64 L Hgb 10.7 L Hct 31 L MCV 86 MCH 29 MCHC 34 RDW 13 Plt Count 126 L MPV 8 Neut % (Auto) 91.6 H Lymph % (Auto) 4.0 L Nuckolls % (Auto) 4.4 Eos % (Auto) 0 Baso % (Auto) 0 Absolute Neuts (auto) 11.9 H Absolute Lymphs (auto) 0.5 L Absolute Monos (auto) 0.6 Absolute Eos (auto) 0 Absolute Basos (auto) 0 Absolute Nucleated RBC 0 Nucleated RBC % 0 Sodium 131 L Potassium 4.1 Chloride 101 Carbon Dioxide 26 Anion Gap 4 BUN 13 Creatinine 0.55 L Est GFR ( Amer) 192.9 Est GFR (Non-Af Amer) 150.0 BUN/Creatinine Ratio 23.6 H Glucose 151 H POC Glucose (mg/dL) 186 H Calcium 8.1 L Total Bilirubin 0.60 Direct Bilirubin 0.20 H Indirect Bilirubin 0.4 AST 18 ALT 28 Alkaline Phosphatase 74 C-Reactive Protein 67.24 H B-Natriuretic Peptide Total Protein 4.8 L Albumin 2.6 L Globulin 2.2 Albumin/Globulin Ratio 1.2 Radiology Results: Patient Name: DARY TORRES Medical Record#: [id number] Ordering Physician: Jason Chaudhary MD Acct.#: [id number] : 1950 Age: 66 Sex: M Location: [facility] Exam Date: 07/09/16732 ADM Status: ADM IN Order Information: CHEST AP PORTABLE Accession Number: [id number] CPT: 43422 INDICATION: Respiratory distress. Pneumonia. COMPARISON: July 08, 2016 TECHNIQUE: An AP portable view obtained at 0750 hours is submitted. FINDINGS: Bones/Soft Tissues: There are no acute bony findings. There is sternotomy Cardiomediastinal: The cardiomediastinal silhouette is normal. Lungs: There is airspace disease in the right upper and lower lobes and the left lower lobe with mild progression. These could all be infectious infiltrates but there may be a component of pulmonary interstitial edema. Pleura: [id number] size bilateral pleural effusions. Other: None IMPRESSION: BILATERAL AIRSPACE DISEASE WITH MILD PROGRESSION. CONSIDER ACUTE PNEUMONITIS WITH PROGRESSION VERSUS WORSENING CHF <Electronically signed by Jose Russell MD in OV> 07/09/16840 Dictated By: Jose Russell MD Dictated Date/Time: 07/09/16840 Transcribed Date/Time: 07/09/16835 Copy to: CC:Jason Chaudhary MD; Jaylon Torres MD Imaging - [facility] - [facility] - [facility] [id number] [place] [id number] ph ([phone]) ph ([phone]) ph ([phone]) Assessment - Problem List Assessment: Patient Problems Acute bronchitis (Acute) Lung infiltrate (Acute) Pneumonia involving right lung (Acute) Type 1 diabetes mellitus with diabetic retinopathy (Acute) Volume overload (Acute) Coronary artery disease (Chronic) Depression (Chronic) Essential hypertension (Chronic) History of CVA (cerebrovascular accident) (Chronic) Hypercholesterolemia (Chronic) Insulin pump status (Chronic) S/P CABG x 5 (Chronic) Plan: Acute bronchitis (Acute) Pneumonia involving right lung (Acute) Lung infiltrate (Acute) He is improving - we will change him to regular NC today. I am transferring him to the regular medical floor Volume overload (Acute) His JVP is distended when he is sitting upright. He has trace edema. I don't think this is CHF - rather it is due to the large amount of volume we gave him during his treatment for DKA. He is diuretic naive and I will start him on furosemide 20 mg iv. 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 He is aware of this. It has been exacerbated by his acute illness. Coronary artery disease (Chronic) secondary diagnosis Depression (Chronic) secondary diagnosis Essential hypertension (Chronic) secondary diagnosis History of CVA (cerebrovascular accident) (Chronic) secondary diagnosis Hypercholesterolemia (Chronic) secondary diagnosis Insulin pump status (Chronic) Off pump right now S/P CABG x 5 (Chronic) secondary diagnosis He is improving and I will transfer him to a general medical bed without telemetry. We need to start thinking about discharge. There are likely some challenges as his cognition is impaired, we will see if he can safely operate his insulin pump and whether he and his Normal need extra support, or if he needs some subacute rehab prior to going home. Phone call with Elisa: Message machine.
[2016-07-10] MEDS ORDERED: Furosemide IV* 10 MG/ML 2 ML VIAL (20 MG) ONE (10:58)
[2016-07-10] MEDS: Furosemide IV* 10 MG/ML 2 ML VIAL (20 MG) IV SCH (14:53)
[2016-07-10] MEDS: guaiFENesin LIQ* 100 MG/5 ML UDC PO PRN (22:25)
[2016-07-11] MEDS: Piperac/Tazob 3.375 gm in NS* 3.375 GM/100 ML BAG IVPB SCH ×4 (00:48→17:59)
[2016-07-11] MEDS: Azithromycin IV(*) 500 MG in NS 0.9% 250 ML* 250 ML IVPB SCH (01:31)
[2016-07-11 05:50] LABS: Hematocrit 31 % (42-52); Hemoglobin 10.5 g/dl (14.0-18.0); Mean Corpuscular HGB Conc 34 g/dl (31-36); Mean Corpuscular Hemoglobin 29 pg (27-31); Mean Corpuscular Volume 85 fL (80-94); Mean Platelet Volume 8 um3 (7.4-10.4); Red Blood Count 3.61 10^6/ul (4.0-5.4); Red Cell Distribution Width 13 % (10.5-15); White Blood Count 15.6 10^3/ul (3.5-10.8)
[2016-07-11] MEDS: Heparin VIAL(*) 5000 UNITS/ML VIAL (FIVE THOUSAND) SUBCUT SCH ×3 (05:54→21:29)
[2016-07-11] MEDS: guaiFENesin LIQ* 100 MG/5 ML UDC PO PRN (06:01)
[2016-07-11 06:06] LABS: BUN/Creatinine Ratio 16.4 (8-20); Calcium 8.2 mg/dL (8.6-10.3); EGFR African American 171.1 (>60); EGFR Non-African American 133.1 (>60); Potassium 3.5 mmol/L (3.5-5.0)
[2016-07-11] MEDS: Insulin LISPRO* 1 UNITS UNIT SUBCUT SCH ×8 (07:58→21:28)
[2016-07-11] MEDS: Insulin GLARGINE(*) 1 UNITS UNIT SUBCUT SCH ×3 (08:55→21:27)
[2016-07-11] MEDS: Sertraline* 50 MG TAB PO SCH (09:02)
[2016-07-11] MEDS: Venlafaxine EXT RELEASE CAP* 75 MG PO SCH (09:02)
[2016-07-11] MEDS: Clopidogrel TAB* 75 MG PO SCH (09:02)
[2016-07-11] MEDS: Atorvastatin* 20 MG TAB PO SCH (09:02)
[2016-07-11] MEDS: Aspirin EC Low Dose* 81 MG TAB.EC PO SCH (09:02)
[2016-07-11] MEDS: predniSONE TAB* 20 MG PO SCH ×2 (09:02→21:27)
[2016-07-11] MEDS: Methylphenidate TAB* 5 MG PO SCH ×2 (09:02→17:59)
[2016-07-11] MEDS: Docusate CAP* 100 MG PO SCH ×2 (09:03→20:42)
[2016-07-11] MEDS: Pantoprazole IV* 40 MG IV SCH (09:06)
[2016-07-11] MEDS: Furosemide IV* 10 MG/ML 2 ML VIAL (20 MG) IV SLOW PU SCH (09:06)
[2016-07-11] MEDS: Hydrochlorothiazide TAB* 50 MG PO SCH (10:52)
[2016-07-11] MEDS: Potassium Chlor TAB* 20 MEQ TAB.ER PO SCH ×3 (10:52→21:27)
[2016-07-11] MEDS: Furosemide IV* 10 MG/ML 2 ML VIAL (20 MG) IV SCH (10:52)
[2016-07-12] MEDS: Piperac/Tazob 3.375 gm in NS* 3.375 GM/100 ML BAG IVPB SCH ×4 (01:00→18:01)
[2016-07-12] MEDS: Azithromycin IV(*) 500 MG in NS 0.9% 250 ML* 250 ML IVPB SCH (01:49)
[2016-07-12 06:01] LABS: Hematocrit 32 % (42-52); Hemoglobin 10.7 g/dl (14.0-18.0); Mean Corpuscular HGB Conc 33 g/dl (31-36); Mean Corpuscular Hemoglobin 29 pg (27-31); Mean Corpuscular Volume 86 fL (80-94); Mean Platelet Volume 8 um3 (7.4-10.4); Red Blood Count 3.74 10^6/ul (4.0-5.4); Red Cell Distribution Width 13 % (10.5-15); White Blood Count 14.9 10^3/ul (3.5-10.8)
[2016-07-12] MEDS: Heparin VIAL(*) 5000 UNITS/ML VIAL (FIVE THOUSAND) SUBCUT SCH ×3 (06:06→21:57)
[2016-07-12 06:18] LABS: Albumin 2.6 g/dL (3.2-5.2); BUN/Creatinine Ratio 16.7 (8-20); C Reactive Protein 62.05 mg/L (< 5.00); Calcium 8.4 mg/dL (8.6-10.3); EGFR Non-African American 153.2 (>60); Globulin 2.5 g/dL (2-4); Potassium 4.1 mmol/L (3.5-5.0); Total Bilirubin 0.6 mg/dL (0.2-1.0); Total Protein 5.1 g/dL (6.4-8.9)
[2016-07-12] MEDS: Insulin LISPRO* 1 UNITS UNIT SUBCUT SCH ×9 (08:30→20:31)
--- NOTE | 2016-07-12 08:38 | PN ---
Subjective - Subjective Reason for Note: Progress Note History: He continues to feel week. His coughing and breathing is improving. He has hypoglycemia at times. He is having a diuresis from the furosemide. He is weak and hasn't full mobilized. Orientation: person, place and July, - not certain about date Diarrhea not so bad this morning Active Problems: Active Problems Acute bronchitis (Acute) J20.9 Lung infiltrate (Acute) R91.8 Pneumonia involving right lung (Acute) J18.9 Type 1 diabetes mellitus with diabetic retinopathy (Acute) E10.319 Volume overload (Acute) E87.70 Coronary artery disease (Chronic) I25.10 Depression (Chronic) F32.9 Essential hypertension (Chronic) I10 History of CVA (cerebrovascular accident) (Chronic) Z86.73 Hypercholesterolemia (Chronic) E78.00 Insulin pump status (Chronic) Z96.41 S/P CABG x 5 (Chronic) Z95.1 Current Medications: Current Medications Acetaminophen (Tylenol Tab*) 650 mg PO Q6H PRN PRN Reason: FEVER/PAIN Last Admin: 07/09/16 21:19 Dose: 650 mg Acetaminophen (Tylenol Tab*) 650 mg PO Q4H PRN PRN Reason: FEVER Aspirin ([facility]in Ec Low Dose*) [facility] Last Admin: 07/11/16 09:02 Dose: 81 mg Atorvastatin Calcium (Lipitor*) 20 mg PO [facility] Last Admin: 07/11/16 09:02 Dose: 20 mg Clopidogrel Bisulfate (Plavix Tab*) 75 mg PO M [facility] Last Admin: 07/11/16 09:02 Dose: 75 mg Dextrose (D50w Syringe 50 Ml*) 12.5 gm IV PUSH .FOR FS < 60 - SS PRN PRN Reason: FS < 60 Last Admin: 07/06/16 19:42 Dose: 12.5 gm Docusate Sodium (Colace Cap*) 200 mg PO BID [facility] Last Admin: 07/11/16 20:42 Dose: Not Given Furosemide (Lasix Iv*) 20 mg IV SLOW PU DAILY [facility] Last Admin: 07/11/16 09:06 Dose: 20 mg Guaifenesin (Robitussin*) 10 ml PO Q4H PRN PRN Reason: COUGH Last Admin: 07/11/16 06:01 Dose: 10 ml Heparin Sodium (Porcine) (Heparin Vial(*)) 5,000 units SUBCUT Q8HR [facility] Last Admin: 07/12/16 06:06 Dose: 5,000 units Hydrochlorothiazide (Hydrodiuril Tab*) 50 mg PO DAILY [facility] Last Admin: 07/11/16 10:52 Dose: 50 mg Piperacillin Sod/Tazobactam Sod (Zosyn 3.375 Gm In Ns Premix*) 3.375 gm in 100 mls @ 200 mls/hr IVPB Q6H [facility] Last Admin: 07/12/16 06:06 Dose: 200 mls/hr Insulin Glargine (Lantus(*)) 24 units SUBCUT Q24H [facility] Insulin Human Lispro (Humalog*) 1 units SUBCUT FS ACHS ICU [facility] PRN Reason: Protocol Last Admin: 07/11/16 20:22 Dose: Not Given Insulin Human Lispro (Humalog*) 0 units SUBCUT ACHS [facility] PRN Reason: Protocol Melatonin (Melatonin (Nf)) 3 mg PO BEDTIME PRN; Protocol PRN Reason: Sleep Methylphenidate HCl (Ritalin Tab*) 5 mg PO 0900,1800 [facility] Last Admin: 07/11/16 17:59 Dose: 5 mg Ondansetron HCl (Zofran Inj*) 4 mg IV Q6H PRN PRN Reason: NAUSEA Last Admin: 07/07/16 08:20 Dose: 4 mg Pantoprazole Sodium (Protonix Iv*) 40 mg IV DAILY [facility] Last Admin: 07/11/16 09:06 Dose: 40 mg Prednisone (Deltasone Tab*) 20 mg PO DAILY [facility] Prochlorperazine Edisylate (Compazine Inj*) 10 mg IV Q6H PRN PRN Reason: NAUSEA Sertraline HCl (Zoloft*) 150 mg PO DAILY [facility] Last Admin: 07/11/16 09:02 Dose: 150 mg Tramadol HCl (Ultram*) 50 mg PO QID PRN PRN Reason: PAIN - MODERATE Last Admin: 07/08/16 22:47 Dose: 50 mg Venlafaxine HCl (Effexor Xr Cap*) 225 mg PO QAM [facility] PRN Reason: Protocol Last Admin: 07/11/16 09:02 Dose: 225 mg Home Medications: Home Medications Medication Instructions Recorded Confirmed Type Alprazolam [Xanax] 0.5 mg PO BEDTIME PRN 05/25/12 07/05/16 History Aspirin 81 mg PO QAM 05/25/12 07/05/16 History Atorvastatin* [Lipitor*] 20 mg PO QAM 05/25/12 07/05/16 History Clopidogrel Bisulfate [Clopidogrel] 75 mg PO QAM 05/25/12 07/05/16 History Diltiazem HCl Coated Beads 240 mg PO QAM 05/25/12 07/05/16 History [Diltiazem Cd] Hydrochlorothiazide 50 mg PO QAM 05/25/12 07/05/16 History Insulin Lispro [Humalog] 30 unit SUBCUT SEE INSTRUCTIONS 05/25/12 07/05/16 History Methylphenidate HCl [Ritalin] 5 mg PO BID 05/25/12 07/05/16 History Telmisartan [Micardis] 80 mg PO QAM 05/25/12 07/05/16 History Venlafaxine CAP (NF) [Effexor CAP 3 tab PO QAM 05/25/12 07/05/16 History (NF)] traMADol TAB* [Ultram*] 50 mg PO QID PRN 05/25/12 07/05/16 History Cetirizine* [ZyrTEC*] 10 mg PO DAILY 08/27/15 07/05/16 History Sertraline* [Zoloft*] 150 mg PO DAILY 08/27/15 07/05/16 History diPHENhydraMINE PO* [Benadryl PO*] 25 mg PO QAM 08/27/15 07/05/16 History Allergies: Allergies Allergy/AdvReac Type Severity Reaction Status Date / Time Latex Allergy RASH, Verified 07/05/16 22:20 IRRITATION Meperidine [From Demerol HCl] AdvReac NIGHTMARES, Verified 07/05/16 22:20 CHILLS, SWEATS Objective - Vital Signs Vital Signs: Vital Signs 07/11/16 07/11/16 07/11/16 11:17 15:46 16:00 Temperature 98.8 F 98.0 F Pulse Rate 76 73 Respiratory 14 32 Rate Blood Pressure 119/56 115/62 (mmHg) O2 Sat by Pulse 95 96 95 Oximetry 07/11/16 07/11/16 07/11/16 19:46 20:00 23:51 Temperature 97.9 F Pulse Rate 73 Respiratory 28 24 Rate Blood Pressure 122/69 (mmHg) O2 Sat by Pulse 98 95 Oximetry 07/12/16 07/12/16 07:23 07:47 Temperature 98.6 F Pulse Rate 84 Respiratory 20 24 Rate Blood Pressure 130/60 (mmHg) O2 Sat by Pulse 96 Oximetry - Intake and Output Intake and Output: Intake & Output 07/09/16 07/10/16 07/11/16 07/12/16 11:59 11:59 11:59 11:59 Intake Total 2702 1558 2245 1648 Output Total 700 1825 1500 2925 Balance 2001 275 -0455 Weight 167 lb 8.821 oz 162 lb 3.2 oz 155 lb 11.2 oz Intake: IV Fluids 595 598 60 Antibiotic 254 NS (0.9%) 150 60 NS and Zosyn 595 194 IVPB 137 225 578 ABX - PIPERACILLIN 225 318 ABX - VANCOMYCIN 260 NS and Zosyn 137 Oral 8011 069 6152 1010 Output: Urine 700 1825 1500 2925 Other: Estimated Void Medium Large Date of Last Bowel 07/09/16 Movement # Bowel Movements 1 4 1 Estimated Stool Amount Large Large Small # Voids 2 2 ADLs: Meal Record Start: 07/05/16 23: 49 Freq: 09,13,18 Status: Inactive Document 07/06/16 09:00 [id number] (Rec: 07/06/16 09:31 [id number] ICU-C15) Document 07/06/16 13:00 [id number] (Rec: 07/06/16 14:41 [id number] ICU-C10) Document 07/06/16 18:00 ICQ2746 (Rec: 07/06/16 19:33 [id number] ICU-C10) Document 07/07/16 09:00 [id number] (Rec: 07/07/16 10:36 [id number] ICU-C15) Document 07/07/16 13:00 [id number] (Rec: 07/07/16 14:30 [id number] ICU-C15) Document 07/07/16 18:00 JLZ2382 (Rec: 07/07/16 18:53 [id number] ICU-M02) Document 07/08/16 09:00 [id number] (Rec: 07/08/16 09:50 [id number] ICU-C15) Document 07/08/16 13:00 NND3506 (Rec: 07/08/16 13:15 [id number] ICU-M20) Document 07/08/16 18:00 [id number] (Rec: 07/08/16 18:41 [id number] ICU-C15) Document 07/09/16 09:00 [id number] (Rec: 07/09/16 10:50 [id number] ICU-C15) Document 07/09/16 13:00 [id number] (Rec: 07/09/16 13:02 PYR4087 ICU-C15) Document 07/09/16 18:00 XIR1459 (Rec: 07/09/16 18:07 [id number] ICU-C15) Document 07/10/16 09:00 [id number] (Rec: 07/10/16 10:31 [id number] ICU-C16) Document 07/10/16 13:00 QSG1397 (Rec: 07/10/16 14:12 [id number] ICU-C25) ADLs: Meal Record Start: 07/10/16 14: 58 Freq: DAILY@0900,1400,1800 Status: Active Created 07/10/16 14:58 [id number] (Rec: 07/10/16 14:58 [id number] MED-C15) Document 07/10/16 18:00 [id number] (Rec: 07/10/16 18:19 NPQ2503 MED-C11) Document 07/11/16 09:00 JFP5359 (Rec: 07/11/16 11:06 AHV6089 MED-C11) Document 07/11/16 14:00 MHM2364 (Rec: 07/11/16 14:35 MET4413 MED-C09) Document 07/11/16 18:00 MXA7542 (Rec: 07/11/16 19:13 [id number] MED-C11) Intake and Output Start: 07/05/16 23: 49 Freq: 06,14,22 Status: Inactive Document 07/06/16 06:00 [id number] (Rec: 07/06/16 06:12 MVF2230 ICU-C14) Document 07/06/16 11:40 ZBW7222 (Rec: 07/06/16 11:40 [id number] ICU-C15) Document 07/06/16 13:50 EYR1343 (Rec: 07/06/16 13:51 [id number] ICU-C16) Document 07/06/16 22:00 NTJ1467 (Rec: 07/06/16 23:01 [id number] ICU-C15) Document 07/07/16 06:00 YTK4310 (Rec: 07/07/16 07:53 [id number] ICU-C22) Document 07/07/16 14:00 MPY4214 (Rec: 07/07/16 14:47 [id number] ICU-C15) Document 07/07/16 15:46 CSO0045 (Rec: 07/07/16 15:47 YXC7199 ICU-C15) Document 07/07/16 18:53 RLK2588 (Rec: 07/07/16 18:53 NZM3105 ICU-M02) Document 07/07/16 18:53 OXO2654 (Rec: 07/07/16 18:53 LPZ5449 ICU-M02) Document 07/07/16 22:00 WHA0291 (Rec: 07/07/16 23:19 IFP8784 ICU-C15) Document 07/08/16 06:00 TDE1578 (Rec: 07/08/16 06:45 QFY3615 ICU-C15) Document 07/08/16 09:35 OWA3220 (Rec: 07/08/16 09:35 KRU1206 ICU-C15) Document 07/08/16 13:38 AZP3789 (Rec: 07/08/16 13:39 [id number] ICU-C15) Document 07/08/16 16:30 HIJ2868 (Rec: 07/08/16 16:30 UJP3069 ICU-C15) Document 07/08/16 21:33 [id number] (Rec: 07/08/16 21:33 VHQ5265 ICU-C14) Document 07/09/16 05:43 QAD7383 (Rec: 07/09/16 05:44 YKU4095 ICU-C14) Document 07/09/16 14:00 ABQ7997 (Rec: 07/09/16 14:31 EMC1448 ICU-M02) Document 07/09/16 22:00 [id number] (Rec: 07/10/16 00:15 TQX7615 ICU-C25) Document 07/10/16 05:29 HOK0919 (Rec: 07/10/16 05:29 [id number] ICU-M02) Document 07/10/16 10:14 RPA5286 (Rec: 07/10/16 10:15 [id number] ICU-C16) Document 07/10/16 11:54 OQO7637 (Rec: 07/10/16 11:54 [id number] ICU-C16) Document 07/10/16 13:37 EIK1375 (Rec: 07/10/16 13:37 FPC6290 ICU-C25) Document 07/10/16 13:56 [id number] (Rec: 07/10/16 13:56 HNQ2131 ICU-M02) Intake and Output Start: 07/10/16 14: 58 Freq: DAILY@0600,1400,2200 Status: Active Created 07/10/16 14:58 [id number] (Rec: 07/10/16 14:58 ACU2093 MED-C15) Document 07/10/16 22:00 BFT5760 (Rec: 07/10/16 22:06 FEP3104 MED-C11) Document 07/11/16 06:00 RUS7768 (Rec: 07/11/16 06:09 BRN4868 MEDL-C01) Document 07/11/16 13:55 [id number] (Rec: 07/11/16 15:55 ESS3427 MED-C02) Document 07/11/16 14:00 ILM5238 (Rec: 07/11/16 14:35 [id number] MED-C09) Document 07/11/16 22:00 CCE3301 (Rec: 07/11/16 22:10 LTS4179 MED-C11) Document 07/12/16 04:50 [id number] (Rec: 07/12/16 04:50 [id number] MED-C09) - Physical Exam General Physical Exam Comment: Generally weak General: No Cyanosis, No Anemia, No Jaundice, No Clubbing Lungs and Chest: Yes: Chest Expansion Full, Chest Expansion Symetrica. No: Percussion Note Resonant - dull bases, Vessicular Breath Sounds - decreased at bases, Crackles, Wheezes, Respiratory Distress, Use of Accessory Muscles Heart Rate and Rhythm: Regular JVP: Elevated Additional Cardiovascular: Yes: Normal Heart Sounds. No: Heart Murmur, Pedal Edema Abdominal Exam: Yes: Soft, Bowel Sounds Present. No: Distention, Abdominal Tenderness Results - Results Lab Results: Laboratory Results - last 24 hr 07/07/16 07/11/16 07/11/16 10:35 08:43 10:57 WBC RBC Hgb Hct MCV MCH MCHC RDW Plt Count MPV Sodium Potassium Chloride Carbon Dioxide Anion Gap BUN Creatinine Est GFR ( Amer) Est GFR (Non-Af Amer) BUN/Creatinine Ratio Glucose POC Glucose (mg/dL) 62 L 216 H Calcium Total Bilirubin AST ALT Alkaline Phosphatase C-Reactive Protein B-Natriuretic Peptide Total Protein Albumin Globulin Albumin/Globulin Ratio Cold Agglutinins Negative 07/11/16 07/11/16 07/12/16 17:12 19:39 03:10 WBC RBC Hgb Hct MCV MCH MCHC RDW Plt Count MPV Sodium Potassium Chloride Carbon Dioxide Anion Gap BUN Creatinine Est GFR ( Amer) Est GFR (Non-Af Amer) BUN/Creatinine Ratio Glucose POC Glucose (mg/dL) 100 229 H 70 L Calcium Total Bilirubin AST ALT Alkaline Phosphatase C-Reactive Protein B-Natriuretic Peptide Total Protein Albumin Globulin Albumin/Globulin Ratio Cold Agglutinins 07/12/16 07/12/16 07/12/16 05:47 05:51 05:51 WBC 14.9 H RBC 3.74 L Hgb 10.7 L Hct 32 L MCV 86 MCH 29 MCHC 33 RDW 13 Plt Count 257 MPV 8 Sodium 134 Potassium 4.1 Chloride 100 L Carbon Dioxide 29 Anion Gap 5 BUN 9 Creatinine 0.54 L Est GFR ( Amer) 197.0 Est GFR (Non-Af Amer) 153.2 BUN/Creatinine Ratio 16.7 Glucose 58 L POC Glucose (mg/dL) 71 L Calcium 8.4 L Total Bilirubin 0.60 AST 20 ALT 36 Alkaline Phosphatase 78 C-Reactive Protein 62.05 H B-Natriuretic Peptide Total Protein 5.1 L Albumin 2.6 L Globulin 2.5 Albumin/Globulin Ratio 1.0 Cold Agglutinins 07/12/16 07/12/16 05:51 07:55 WBC RBC Hgb Hct MCV MCH MCHC RDW Plt Count MPV Sodium Potassium Chloride Carbon Dioxide Anion Gap BUN Creatinine Est GFR ( Amer) Est GFR (Non-Af Amer) BUN/Creatinine Ratio Glucose POC Glucose (mg/dL) 57 L Calcium Total Bilirubin AST ALT Alkaline Phosphatase C-Reactive Protein B-Natriuretic Peptide 955 H Total Protein Albumin Globulin Albumin/Globulin Ratio Cold Agglutinins Assessment - Problem List Assessment: Patient Problems Acute bronchitis (Acute) Lung infiltrate (Acute) Pneumonia involving right lung (Acute) Type 1 diabetes mellitus with diabetic retinopathy (Acute) Volume overload (Acute) Coronary artery disease (Chronic) Depression (Chronic) Essential hypertension (Chronic) History of CVA (cerebrovascular accident) (Chronic) Hypercholesterolemia (Chronic) Insulin pump status (Chronic) S/P CABG x 5 (Chronic) Plan: Acute bronchitis (Acute)Lung infiltrate (Acute)Pneumonia involving right lung ( Acute) This is improving - he no longer has marked wheezing/crackles. However, he continues to have poor air entry bases. I will reduce his prednisone to 20 mg daily. He will continue his breathing treatment. I have stopped his azithromycin Volume overload (Acute) His BNP remains elevated, he has had a good diuresis and I will give him another day of furosemide IV. However, his breathing is improving and there are no wheezes. Type 1 diabetes mellitus with diabetic retinopathy (Acute) He is too tightly controlled. I don't think he is ready for his insulin pump. I have reduced his lantus to 24 unit qhs and also reduced his carb counting/correction bolus Coronary artery disease (Chronic) EKG not showing anything acute/new Depression (Chronic) stable Essential hypertension (Chronic) on target - continue current Rx History of CVA (cerebrovascular accident) (Chronic) stable Hypercholesterolemia (Chronic) secondary diagnosis Insulin pump status (Chronic) Not ready for restart S/P CABG x 5 (Chronic) Phone call to Elisa (), she states he was short of breath yesterday. She isn 't up to his usual baseline mental functioning.
[2016-07-12] MEDS ORDERED: predniSONE TAB* 20 MG PO SCH (09:00)
[2016-07-12] MEDS ORDERED: Insulin GLARGINE(*) 1 UNITS UNIT SUBCUT SCH (10:00)
[2016-07-12] MEDS: Methylphenidate TAB* 5 MG PO SCH ×2 (10:17→18:00)
[2016-07-12] MEDS: Venlafaxine EXT RELEASE CAP* 75 MG PO SCH (10:17)
[2016-07-12] MEDS: Sertraline* 50 MG TAB PO SCH (10:17)
[2016-07-12] MEDS: Hydrochlorothiazide TAB* 50 MG PO SCH (10:18)
[2016-07-12] MEDS: Clopidogrel TAB* 75 MG PO SCH (10:18)
[2016-07-12] MEDS: Atorvastatin* 20 MG TAB PO SCH (10:18)
[2016-07-12] MEDS: Aspirin EC Low Dose* 81 MG TAB.EC PO SCH (10:18)
[2016-07-12] MEDS: Furosemide IV* 10 MG/ML 2 ML VIAL (20 MG) IV SLOW PU SCH (10:19)
[2016-07-12] MEDS: Pantoprazole IV* 40 MG IV SCH (10:19)
[2016-07-12] MEDS: Docusate CAP* 100 MG PO SCH ×2 (10:19→20:08)
--- NOTE | 2016-07-12 15:03 | ECHO ---
Patient: DARY TORRES [facility] Rec#: [id number] : 1950 Date: 07/12/2016 Age: 66y Height: 172.72 cm / 68.0 in Weight: 73.48 kg / 161.9 lbs Sex: M BSA: 1.87 Room#: [facility] Admit Date#: 07/05/2016 Type: Inpatient Referring: Gabriella Seth MD Reading: Froylan Knox MD Insole Beveler: Mary Almendarez RN RDCS Insole Beveler: Manjula Carvajal CC: Jason Chaudhary MD Transthoracic Echocardiogram Indication: CHF, edema BP: 122/69 HR: 61 Rhythm: NSR with PVCs Findings History: CAD, CHF, CABG, CVA, IDDM, HTN, HLD. Technical Comments: The study quality is good. Completed at 1305. Left Ventricle: The left ventricular chamber size is normal. Mild global hypokinesis of the left ventricle is observed. There is mildly decreased left ventricular systolic function. The estimated ejection fraction is 45-50%. The left ventricular diastolic filling pattern is consistent with pseudonormalization. Left Atrium: The left atrial chamber size is normal. Right Ventricle: The right ventricular cavity size is normal. The right ventricular global systolic function is low normal. Right Atrium: The right atrial cavity size is normal. Aortic Valve: The aortic valve is trileaflet. The aortic valve leaflets are mildly thickened. There is a trace of aortic regurgitation. There is no evidence of aortic stenosis. Mitral Valve: The mitral valve leaflets are mildly thickened. There is moderate mitral regurgitation. There is no evidence of mitral stenosis. Tricuspid Valve: The tricuspid valve leaflets are mildly thickened. There is trace tricuspid regurgitation. Unable to estimate the right ventricular systolic pressure. There is no tricuspid stenosis. Pulmonic Valve: The pulmonic valve appears normal. There is a trace pulmonic regurgitation. There is no pulmonic stenosis. Pericardium: There is no significant pericardial effusion. A left pleural effusion is present. Aorta: There is no dilatation of the ascending aorta. There is no dilatation of the aortic arch. There is no dilation of the aortic root. Pulmonary Artery: The main pulmonary artery appears normal. Venous: The inferior vena cava appears normal in size. There is a greater than 50% respiratory change in the inferior vena cava dimension. Conclusions Mild global hypokinesis of the left ventricle is observed. There is mildly decreased left ventricular systolic function. The estimated ejection fraction is 45-50%. The left ventricular diastolic filling pattern is consistent with pseudonormalization. The right ventricular global systolic function is low normal. The aortic valve leaflets are mildly thickened. There is a trace of aortic regurgitation. There is moderate mitral regurgitation. There is trace tricuspid regurgitation. Unable to estimate the right ventricular systolic pressure. There is no significant pericardial effusion. A left pleural effusion is present. Compared t study of 08/29/15, the LV function is slightly lower. The valve function is the same Measurements Name Value Normal Range RVIDd (AP) 2D 2.9 cm (0.9 - 2.6) RVDdMajor (2D) 3.1 cm (2.2 - 4.4) RAd ISD 4CH 4.5 cm (3.4 - 4.9) RA (A4C)W 3.8 cm (2.9 - 4.6) IVSd (2D) 0.9 cm (0.6 - 1) LVPWd (2D) 0.9 cm (0.6 - 1) LVIDd (2D) 5 cm (3.6 - 5.4) LVIDs (2D) 3.6 cm - LV FS (2D) 28 % (25 - 45) EF Teichholz (2D) 54 % - Aortic Annulus 2 cm (1.4 - 2.6) Ao root diameter (2D) 2.9 cm (2.1 - 3.5) Ascending Ao 2.6 cm (2.1 - 3.4) Aortic arch 3.1 cm (1.8 - 3.4) LA dimension (AP) 2D 3.8 cm (2.3 - 3.8) LAd ISD 4CH 4.6 cm (2.9 - 5.3) LA ISD 4CH W 3.8 cm (2.5 - 4.5) Name Value Normal Range LA ESV SP 4CH (A/L) 50 ml - LA ESV SP 2CH (A/L) 44 ml - LA ESV BP (A/L) 50 ml - LA ESV BP (A/L) index 26.48 ml/m2 - LA ESV SP 4CH (MOD) 45 ml - LA ESV SP 2CH (MOD) 41 ml - Name Value Normal Range MV E-wave Vmax 0.9 m/sec - MV deceleration time 210 msec - MV A-wave Vmax 0.77 m/sec - MV E:A ratio 1.2 ratio - LV septal e' Vmax 0.06 m/sec - LV lateral e' Vmax 0.08 m/sec - LV E:e' septal ratio 15 ratio - LV E:e' lateral ratio 11.25 ratio - Name Value Normal Range AV Vmax 1.2 m/sec - AV VTI 27 cm - AV peak gradient 6.12 mmHg - AV mean gradient 2.92 mmHg - LVOT Vmax 0.9 m/sec - LVOT VTI 19 cm - LVOT peak gradient 3.39 mmHg - LVOT mean gradient 1.7 mmHg - Name Value Normal Range IVC diameter 2 cm - Name Value Normal Range PV Vmax 0.7 m/sec - PV peak gradient 1.82 mmHg -
--- NOTE | 2016-07-12 16:10 | RAD ---
INDICATION: Pneumonia COMPARISON: July 09, 2016 TECHNIQUE: PA and lateral dual-energy views were obtained. FINDINGS: Bones/Soft Tissues: There are no acute bony findings. There is sternotomy Cardiomediastinal: The cardiomediastinal silhouette is normal. Lungs: Bilateral infiltrates show significant improvement. There is persistent consolidation left lung base with a small moderate sized left-sided pleural effusion. Pleura: There are no pleural effusions. Other: None IMPRESSION: SIGNIFICANT INTERVAL IMPROVEMENT OF BILATERAL INFILTRATES. STABLE LEFT-SIDED EFFUSION. RECOMMEND CONTINUED FOLLOW-UP
[2016-07-12] MEDS: Insulin GLARGINE(*) 1 UNITS UNIT SUBCUT SCH (20:01)
[2016-07-13] MEDS: Piperac/Tazob 3.375 gm in NS* 3.375 GM/100 ML BAG IVPB SCH ×2 (00:51→06:26)
[2016-07-13] MEDS: Heparin VIAL(*) 5000 UNITS/ML VIAL (FIVE THOUSAND) SUBCUT SCH ×3 (05:35→22:02)
[2016-07-13 05:39] LABS: Comments Flag Yes; Hematocrit 31 % (42-52); Hemoglobin 10.2 g/dl (14.0-18.0); Mean Corpuscular HGB Conc 33 g/dl (31-36); Mean Corpuscular Hemoglobin 29 pg (27-31); Mean Corpuscular Volume 86 fL (80-94); Mean Platelet Volume 8 um3 (7.4-10.4); Red Blood Count 3.55 10^6/ul (4.0-5.4); Red Cell Distribution Width 13 % (10.5-15); White Blood Count 12.7 10^3/ul (3.5-10.8)
[2016-07-13 05:40] LABS: Add Diff/Slide Review? Slide Review Added
[2016-07-13 05:52] LABS: BUN/Creatinine Ratio 20.3 (8-20); C Reactive Protein 49.26 mg/L (< 5.00); Calcium 8.3 mg/dL (8.6-10.3); EGFR African American 177.9 (>60); EGFR Non-African American 138.3 (>60); Potassium 4.2 mmol/L (3.5-5.0)
--- NOTE | 2016-07-13 08:27 | PN ---
Subjective - Subjective Reason for Note: Progress Note History: He continues to require O2. He is improving each day in his mental state - today he got the month and day wrong. He continues to cough. He is not complaining of diarrhea. He has had on chest pain, palpitations. His glycemic control was higher all day on less insulin - no more hypoglycemia. Active Problems: Active Problems Acute bronchitis (Acute) J20.9 Acute combined systolic and diastolic congestive heart failure (Acute) I50.41 Cognitive decline (Acute) R41.89 Lung infiltrate (Acute) R91.8 Pneumonia involving right lung (Acute) J18.9 Type 1 diabetes mellitus with diabetic retinopathy (Acute) E10.319 Volume overload (Acute) E87.70 Coronary artery disease (Chronic) I25.10 Depression (Chronic) F32.9 Essential hypertension (Chronic) I10 History of CVA (cerebrovascular accident) (Chronic) Z86.73 Hypercholesterolemia (Chronic) E78.00 Insulin pump status (Chronic) Z96.41 S/P CABG x 5 (Chronic) Z95.1 Current Medications: Current Medications Acetaminophen (Tylenol Tab*) 650 mg PO Q6H PRN PRN Reason: FEVER/PAIN Last Admin: 07/09/16 21:19 Dose: 650 mg Acetaminophen (Tylenol Tab*) 650 mg PO Q4H PRN PRN Reason: FEVER Aspirin (Aspirin Ec Low Dose*) 81 mg PO [facility] Last Admin: 07/12/16 10:18 Dose: 81 mg Atorvastatin Calcium (Lipitor*) 20 mg PO [facility] Last Admin: 07/12/16 10:18 Dose: 20 mg Clopidogrel Bisulfate (Plavix Tab*) 75 mg PO [facility] Last Admin: 07/12/16 10:18 Dose: 75 mg Dextrose (D50w Syringe 50 Ml*) 12.5 gm IV PUSH .FOR FS < 60 - SS PRN PRN Reason: FS < 60 Last Admin: 07/06/16 19:42 Dose: 12.5 gm Docusate Sodium (Colace Cap*) 200 mg PO BID [facility] Last Admin: 07/12/16 20:08 Dose: Not Given Furosemide (Lasix Iv*) 20 mg IV SLOW PU DAILY [facility] Last Admin: 07/12/16 10:19 Dose: 20 mg Guaifenesin (Robitussin*) 10 ml PO Q4H PRN PRN Reason: COUGH Last Admin: 07/11/16 06:01 Dose: 10 ml Heparin Sodium (Porcine) (Heparin Vial(*)) 5,000 units SUBCUT Q8HR [facility] Last Admin: 07/13/16 05:35 Dose: 5,000 units Hydrochlorothiazide (Hydrodiuril Tab*) 50 mg PO DAILY [facility] Last Admin: 07/12/16 10:18 Dose: 50 mg Piperacillin Sod/Tazobactam Sod (Zosyn 3.375 Gm In Ns Premix*) 3.375 gm in 100 mls @ 200 mls/hr IVPB Q6H [facility] Last Admin: 07/13/16 06:26 Dose: 200 mls/hr Insulin Glargine (Lantus(*)) 20 units SUBCUT Q24H [facility] Last Admin: 07/12/16 20:01 Dose: 20 units Insulin Human Lispro (Humalog*) 1 units SUBCUT FS ACHS ICU [facility] PRN Reason: Protocol Last Admin: 07/12/16 20:31 Dose: Not Given Insulin Human Lispro (Humalog*) 0 units SUBCUT ACHS [facility] PRN Reason: Protocol Last Admin: 07/12/16 20:29 Dose: 4 units Melatonin (Melatonin (Nf)) 3 mg PO BEDTIME PRN; Protocol PRN Reason: Sleep Methylphenidate HCl (Ritalin Tab*) 5 mg PO 0900,1800 [facility] Last Admin: 07/12/16 18:00 Dose: 5 mg Ondansetron HCl (Zofran Inj*) 4 mg IV Q6H PRN PRN Reason: NAUSEA Last Admin: 07/07/16 08:20 Dose: 4 mg Pantoprazole Sodium (Protonix Iv*) 40 mg IV DAILY [facility] Last Admin: 07/12/16 10:19 Dose: 40 mg Prednisone (Deltasone Tab*) 20 mg PO DAILY [facility] Last Admin: 07/12/16 10:17 Dose: 20 mg Prochlorperazine Edisylate (Compazine Inj*) 10 mg IV Q6H PRN PRN Reason: NAUSEA Sertraline HCl (Zoloft*) 150 mg PO DAILY [facility] Last Admin: 07/12/16 10:17 Dose: 150 mg Venlafaxine HCl (Effexor Xr Cap*) 225 mg PO QAM [facility] PRN Reason: Protocol Last Admin: 07/12/16 10:17 Dose: 225 mg Home Medications: Home Medications Medication Instructions Recorded Confirmed Type Alprazolam [Xanax] 0.5 mg PO BEDTIME PRN 05/25/12 07/05/16 History Aspirin 81 mg PO QAM 05/25/12 07/05/16 History Atorvastatin* [Lipitor*] 20 mg PO QAM 05/25/12 07/05/16 History Clopidogrel Bisulfate [Clopidogrel] 75 mg PO QAM 05/25/12 07/05/16 History Diltiazem HCl Coated Beads 240 mg PO QAM 05/25/12 07/05/16 History [Diltiazem Cd] Hydrochlorothiazide 50 mg PO QAM 05/25/12 07/05/16 History Insulin Lispro [Humalog] 30 unit SUBCUT SEE INSTRUCTIONS 05/25/12 07/05/16 History Methylphenidate HCl [Ritalin] 5 mg PO BID 05/25/12 07/05/16 History Telmisartan [Micardis] 80 mg PO QAM 05/25/12 07/05/16 History Venlafaxine CAP (NF) [Effexor CAP 3 tab PO QAM 05/25/12 07/05/16 History (NF)] traMADol TAB* [Ultram*] 50 mg PO QID PRN 05/25/12 07/05/16 History Cetirizine* [ZyrTEC*] 10 mg PO DAILY 08/27/15 07/05/16 History Sertraline* [Zoloft*] 150 mg PO DAILY 08/27/15 07/05/16 History diPHENhydraMINE PO* [Benadryl PO*] 25 mg PO QAM 08/27/15 07/05/16 History Allergies: Allergies Allergy/AdvReac Type Severity Reaction Status Date / Time Latex Allergy RASH, Verified 07/05/16 22:20 IRRITATION Meperidine [From Demerol HCl] AdvReac NIGHTMARES, Verified 07/05/16 22:20 CHILLS, SWEATS Objective - Vital Signs Vital Signs: Vital Signs 07/12/16 07/12/16 07/12/16 15:28 20:00 23:23 Temperature 98.1 F Pulse Rate 70 Respiratory 28 20 Rate Blood Pressure 136/69 (mmHg) O2 Sat by Pulse 97 98 Oximetry 07/13/16 07:29 Temperature Pulse Rate Respiratory 22 Rate Blood Pressure (mmHg) O2 Sat by Pulse Oximetry - Intake and Output Intake and Output: Intake & Output 07/10/16 07/11/16 07/12/16 07/13/16 11:59 11:59 11:59 11:59 Intake Total 1558 2245 2113.1 1070 Output Total 1825 1500 3400 3125 Balance -267 745 -1286.9 -2055 Weight 167 lb 8.821 oz 162 lb 3.2 oz 155 lb 11.2 oz 154 lb 14.4 oz Intake: IV Fluids 598 205.1 ABX - PIPERACILLIN 105 Antibiotic 254 NS (0.9%) 150 100.1 NS and Zosyn 194 IVPB 225 578 ABX - PIPERACILLIN 225 318 ABX - VANCOMYCIN 260 Oral 960 2020 1330 1070 Output: Urine 1825 1500 3400 3125 Other: Estimated Void Medium Large Medium Date of Last Bowel 07/09/16 Movement # Bowel Movements 1 4 1 0 Estimated Stool Amount Large Large Small # Voids 2 2 1 ADLs: Meal Record Start: 07/05/16 23: 49 Freq: 09,13,18 Status: Inactive Document 07/06/16 09:00 [id number] (Rec: 07/06/16 09:31 [id number] ICU-C15) Document 07/06/16 13:00 UXM4738 (Rec: 07/06/16 14:41 [id number] ICU-C10) Document 07/06/16 18:00 ESB3094 (Rec: 07/06/16 19:33 GCI9800 ICU-C10) Document 07/07/16 09:00 RDM6185 (Rec: 07/07/16 10:36 HVM3212 ICU-C15) Document 07/07/16 13:00 CLE2094 (Rec: 07/07/16 14:30 MQK9017 ICU-C15) Document 07/07/16 18:00 SGN0676 (Rec: 07/07/16 18:53 HQY2281 ICU-M02) Document 07/08/16 09:00 BXG4409 (Rec: 07/08/16 09:50 DMN6808 ICU-C15) Document 07/08/16 13:00 LIG2943 (Rec: 07/08/16 13:15 PMN1677 ICU-M20) Document 07/08/16 18:00 LMG6839 (Rec: 07/08/16 18:41 ADC7277 ICU-C15) Document 07/09/16 09:00 FCT6460 (Rec: 07/09/16 10:50 TNK4312 ICU-C15) Document 07/09/16 13:00 FFU4049 (Rec: 07/09/16 13:02 PUF8719 ICU-C15) Document 07/09/16 18:00 WIM4265 (Rec: 07/09/16 18:07 RSF4920 ICU-C15) Document 07/10/16 09:00 RQT4548 (Rec: 07/10/16 10:31 HXV0892 ICU-C16) Document 07/10/16 13:00 RQR9506 (Rec: 07/10/16 14:12 CAY2685 ICU-C25) ADLs: Meal Record Start: 07/10/16 14: 58 Freq: DAILY@0900,1400,1800 Status: Active Created 07/10/16 14:58 LXL2670 (Rec: 07/10/16 14:58 WAG9898 MED-C15) Document 07/10/16 18:00 ZJK5265 (Rec: 07/10/16 18:19 QUU6961 MED-C11) Document 07/11/16 09:00 FMR0702 (Rec: 07/11/16 11:06 CHA7152 MED-C11) Document 07/11/16 14:00 HHX2476 (Rec: 07/11/16 14:35 QWM9730 MED-C09) Document 07/11/16 18:00 FGV2073 (Rec: 07/11/16 19:13 PMI5529 MED-C11) Document 07/12/16 09:00 LCK7484 (Rec: 07/12/16 10:40 TUV6173 MED-C09) Document 07/12/16 13:57 FGW2825 (Rec: 07/12/16 14:00 ERU4638 MED-C09) Document 07/12/16 18:00 GYE3991 (Rec: 07/12/16 18:38 KRB3999 MED-C11) Intake and Output Start: 07/05/16 23: 49 Freq: 06,14,22 Status: Inactive Document 07/06/16 06:00 PTZ4178 (Rec: 07/06/16 06:12 FTN4541 ICU-C14) Document 07/06/16 11:40 NKH4304 (Rec: 07/06/16 11:40 XOQ3070 ICU-C15) Document 07/06/16 13:50 VBM6425 (Rec: 07/06/16 13:51 LZY2826 ICU-C16) Document 07/06/16 22:00 HIE4898 (Rec: 07/06/16 23:01 TYR2629 ICU-C15) Document 07/07/16 06:00 ORR8714 (Rec: 07/07/16 07:53 JIS6088 ICU-C22) Document 07/07/16 14:00 FTD8322 (Rec: 07/07/16 14:47 OTB9690 ICU-C15) Document 07/07/16 15:46 HID1613 (Rec: 07/07/16 15:47 ROP4755 ICU-C15) Document 07/07/16 18:53 DUK8145 (Rec: 07/07/16 18:53 CJP4751 ICU-M02) Document 07/07/16 18:53 XSC3540 (Rec: 07/07/16 18:53 OMH9270 ICU-M02) Document 07/07/16 22:00 RXK7649 (Rec: 07/07/16 23:19 ZKU9761 ICU-C15) Document 07/08/16 06:00 PBZ0001 (Rec: 07/08/16 06:45 QYX1203 ICU-C15) Document 07/08/16 09:35 YVX8131 (Rec: 07/08/16 09:35 ULT7678 ICU-C15) Document 07/08/16 13:38 DKX0894 (Rec: 07/08/16 13:39 AEZ9862 ICU-C15) Document 07/08/16 16:30 EOC7424 (Rec: 07/08/16 16:30 CLO3438 ICU-C15) Document 07/08/16 21:33 PTK2658 (Rec: 07/08/16 21:33 JHC4769 ICU-C14) Document 07/09/16 05:43 ORJ3528 (Rec: 07/09/16 05:44 RIP8678 ICU-C14) Document 07/09/16 14:00 EBM2993 (Rec: 07/09/16 14:31 JBD7430 ICU-M02) Document 07/09/16 22:00 EHN0775 (Rec: 07/10/16 00:15 PZQ5576 ICU-C25) Document 07/10/16 05:29 QBD3629 (Rec: 07/10/16 05:29 GBL0101 ICU-M02) Document 07/10/16 10:14 ODA2663 (Rec: 07/10/16 10:15 WON2973 ICU-C16) Document 07/10/16 11:54 FZG6410 (Rec: 07/10/16 11:54 VZV2076 ICU-C16) Document 07/10/16 13:37 EIK3564 (Rec: 07/10/16 13:37 RBG2207 ICU-C25) Document 07/10/16 13:56 PFI5916 (Rec: 07/10/16 13:56 XHH5944 ICU-M02) Intake and Output Start: 07/10/16 14: 58 Freq: DAILY@0600,1400,2200 Status: Active Created 07/10/16 14:58 IYW2654 (Rec: 07/10/16 14:58 SPY2793 MED-C15) Document 07/10/16 22:00 AVK7558 (Rec: 07/10/16 22:06 VGO2006 MED-C11) Document 07/11/16 06:00 SGL2088 (Rec: 07/11/16 06:09 JJT6065 MEDL-C01) Document 07/11/16 13:55 QPR8992 (Rec: 07/11/16 15:55 ERZ8730 MED-C02) Document 07/11/16 14:00 RIS9125 (Rec: 07/11/16 14:35 YFE5508 MED-C09) Document 07/11/16 22:00 OMZ5737 (Rec: 07/11/16 22:10 ZZP7790 MED-C11) Document 07/12/16 04:50 RPR5177 (Rec: 07/12/16 04:50 TTP9193 MED-C09) Document 07/12/16 13:57 MJP8316 (Rec: 07/12/16 14:00 YFL3998 MED-C09) Document 07/12/16 14:52 UNX8096 (Rec: 07/12/16 14:54 BXG7788 MED-C05) Document 07/12/16 16:49 WVD8609 (Rec: 07/12/16 16:50 ZGH2113 MED-C14) Document 07/12/16 22:00 XQO5345 (Rec: 07/12/16 22:46 HXS0933 MED-C11) Document 07/13/16 04:11 WOK3243 (Rec: 07/13/16 04:11 XHA4590 MED-C42) - Physical Exam General: No Cyanosis, No Anemia, No Jaundice, No Clubbing Lungs and Chest: Yes: Chest Expansion Full, Chest Expansion Symetrica, Vessicular Breath Sounds - diminished bases, Crackles - at bases. No: Percussion Note Resonant - dull bases, Wheezes, Respiratory Distress, Use of Accessory Muscles Heart Rate and Rhythm: Regular JVP: Elevated Additional Cardiovascular: Yes: Normal Heart Sounds, Pedal Edema - trace. No: Heart Murmur Abdominal Exam: Yes: Soft, Bowel Sounds Present. No: Distention, Abdominal Tenderness Results - Results Lab Results: Laboratory Results - last 24 hr 07/10/16 07/12/16 07/12/16 16:06 11:44 16:44 WBC RBC Hgb Hct MCV MCH MCHC RDW Plt Count MPV Neut % (Auto) Lymph % (Auto) [place] % (Auto) Eos % (Auto) Baso % (Auto) Absolute Neuts (auto) Absolute Lymphs (auto) Absolute Monos (auto) Absolute Eos (auto) Absolute Basos (auto) Absolute Nucleated RBC Nucleated RBC % Sodium Potassium Chloride Carbon Dioxide Anion Gap BUN Creatinine Est GFR ( Amer) Est GFR (Non-Af Amer) BUN/Creatinine Ratio Glucose POC Glucose (mg/dL) 127 H 190 H 196 H Calcium C-Reactive Protein 07/12/16 07/13/16 07/13/16 20:00 04:51 04:51 WBC 12.7 H RBC 3.55 L Hgb 10.2 L Hct 31 L MCV 86 MCH 29 MCHC 33 RDW 13 Plt Count 299 MPV 8 Neut % (Auto) 76.0 Lymph % (Auto) 14.0 L [place] % (Auto) 8.6 Eos % (Auto) 1.0 Baso % (Auto) 0.4 Absolute Neuts (auto) 9.7 H Absolute Lymphs (auto) 1.8 Absolute Monos (auto) 1.1 H Absolute Eos (auto) 0.1 Absolute Basos (auto) 0 Absolute Nucleated RBC 0.01 Nucleated RBC % 0.1 Sodium 130 L Potassium 4.2 Chloride 95 L Carbon Dioxide 29 Anion Gap 6 BUN 12 Creatinine 0.59 L Est GFR ( Amer) 177.9 Est GFR (Non-Af Amer) 138.3 BUN/Creatinine Ratio 20.3 H Glucose 208 H POC Glucose (mg/dL) 295 H Calcium 8.3 L C-Reactive Protein 49.26 H 07/13/16 07:23 WBC RBC Hgb Hct MCV MCH MCHC RDW Plt Count MPV Neut % (Auto) Lymph % (Auto) [place] % (Auto) Eos % (Auto) Baso % (Auto) Absolute Neuts (auto) Absolute Lymphs (auto) Absolute Monos (auto) Absolute Eos (auto) Absolute Basos (auto) Absolute Nucleated RBC Nucleated RBC % Sodium Potassium Chloride Carbon Dioxide Anion Gap BUN Creatinine Est GFR ( Amer) Est GFR (Non-Af Amer) BUN/Creatinine Ratio Glucose POC Glucose (mg/dL) 189 H Calcium C-Reactive Protein Radiology Results: Patient Name: DARY TORRES Medical Record#: [id number] Ordering Physician: Jason Chaudhary MD Acct.#: [id number] : 1950 Age: 66 Sex: M Location: [address] [place] [address] MEDICAL Exam Date: 07/12/16834 ADM Status: ADM IN Order Information: CHEST PA & LAT 2 VWS Accession Number: [id number] CPT: 13626 INDICATION: Pneumonia COMPARISON: July 09, 2016 TECHNIQUE: PA and lateral dual-energy views were obtained. FINDINGS: Bones/Soft Tissues: There are no acute bony findings. There is sternotomy Cardiomediastinal: The cardiomediastinal silhouette is normal. Lungs: Bilateral infiltrates show significant improvement. There is persistent consolidation left lung base with a small moderate sized left-sided pleural effusion. Pleura: There are no pleural effusions. Other: None IMPRESSION: SIGNIFICANT INTERVAL IMPROVEMENT OF BILATERAL INFILTRATES. STABLE LEFT-SIDED EFFUSION. RECOMMEND CONTINUED FOLLOW-UP <Electronically signed by Jose Russell MD in [place]> 07/12/16 1607 Dictated By: Jose Russell MD Dictated Date/Time: 07/12/16 1607 Transcribed Date/Time: 07/12/16 1022 Copy to: CC:Jason Chaudhary MD; Jaylon Torres MD Imaging - [facility] Imaging - [facility] Imaging - [facility] [address] [place], [place] [id number] [place] [id number] [place] [phone] ph ([phone]) ph ([phone]) ph ([phone]) 1 of 1 Other Results/Reports: Transthoracic echocardiogram conclusions ferior vena cava dimension. Conclusions Mild global hypokinesis of the left ventricle is observed. There is mildly decreased left ventricular systolic function. The estimated ejection fraction is 45-50%. The left ventricular diastolic filling pattern is consistent with pseudonormalization. The right ventricular global systolic function is low normal. The aortic valve leaflets are mildly thickened. There is a trace of aortic regurgitation. There is moderate mitral regurgitation. There is trace tricuspid regurgitation. Unable to estimate the right ventricular systolic pressure. There is no significant pericardial effusion. A left pleural effusion is present. Compared t study of 08/29/15, the LV function is slightly lower. The valve function is the same Assessment - Problem List Assessment: Patient Problems Acute bronchitis (Acute) Acute combined systolic and diastolic congestive heart failure (Acute) Cognitive decline (Acute) Lung infiltrate (Acute) Pneumonia involving right lung (Acute) Type 1 diabetes mellitus with diabetic retinopathy (Acute) Volume overload (Acute) Coronary artery disease (Chronic) Depression (Chronic) Essential hypertension (Chronic) History of CVA (cerebrovascular accident) (Chronic) Hypercholesterolemia (Chronic) Insulin pump status (Chronic) S/P CABG x 5 (Chronic) Plan: Acute bronchitis (Acute) Lung infiltrate (Acute) Pneumonia involving right lung (Acute)this is improving, I will stop the prednisone. I will change him to oral cefuroxime. Acute combined systolic and diastolic congestive heart failure (Acute) Volume overload (Acute) The echocardiogram shows mild reduction of his ejection fraction. He is having a good diuresis and losing weight. I will give him one more day of IV furosemide. I will initiate a small dose of an JOVITA inhibitor ( ramipril). I am not starting a beta-lang today in view of 1. His labile diabetes mellitus with multiple hypoglycemic episodes and hypoglycemic unawareness. 2. His recent bronchospasm. Cognitive decline (Acute) He has a history of stroke and mild cognitive problems - this is exacerbated at present. It is not yet possible for him to manage his insulin pump. However, he is improving Type 1 diabetes mellitus with diabetic retinopathy (Acute) He is mildly hyperglycemic. However, as I am stopping his prednisone, I think that I would rather not increase insulin Coronary artery disease (Chronic) secondary diagnosis Depression (Chronic) secondary diagnosis Essential hypertension (Chronic) stable History of CVA (cerebrovascular accident) (Chronic) Hypercholesterolemia (Chronic) secondary diagnosis S/P CABG x 5 (Chronic) I reviewed his PT report and that of the social welfare research worker. I will obtain a PMRU consult today as I think this is appropriate. If this is not possible, then I would like to discuss his case with Yeimi Gutiérrez as I am an attending physician, finally [facility] has offered a bed. I think he may be ready for transfer tomorrow. I spoke to the patient in detail and called his on the phone. Elisa agrees he is not ready for direct discharge home. I discussed PMRU vs [facility]
[2016-07-13] MEDS ORDERED: Ramipril CAP* 2.5 MG PO ONE (08:37)
[2016-07-13] MEDS: Insulin LISPRO* 1 UNITS UNIT SUBCUT SCH ×8 (09:23→22:05)
[2016-07-13] MEDS: ceFUROXime TAB(*) 250 MG PO SCH ×2 (09:25→21:24)
[2016-07-13] MEDS: Venlafaxine EXT RELEASE CAP* 75 MG PO SCH (09:25)
[2016-07-13] MEDS: Methylphenidate TAB* 5 MG PO SCH ×2 (09:25→18:12)
[2016-07-13] MEDS: Aspirin EC Low Dose* 81 MG TAB.EC PO SCH (09:25)
[2016-07-13] MEDS: Clopidogrel TAB* 75 MG PO SCH (09:26)
[2016-07-13] MEDS: Sertraline* 50 MG TAB PO SCH (09:26)
[2016-07-13] MEDS: Atorvastatin* 20 MG TAB PO SCH (09:27)
[2016-07-13] MEDS: Furosemide IV* 10 MG/ML 2 ML VIAL (20 MG) IV SLOW PU SCH (09:30)
[2016-07-13] MEDS: Pantoprazole IV* 40 MG IV SCH (09:30)
[2016-07-13] MEDS: Docusate CAP* 100 MG PO SCH ×2 (09:31→21:24)
[2016-07-13] MEDS: Hydrochlorothiazide TAB* 50 MG PO SCH (09:35)
[2016-07-13] MEDS: Insulin GLARGINE(*) 1 UNITS UNIT SUBCUT SCH (21:25)
[2016-07-13] MEDS: guaiFENesin LIQ* 100 MG/5 ML UDC PO PRN (21:25)
[2016-07-14] MEDS: Heparin VIAL(*) 5000 UNITS/ML VIAL (FIVE THOUSAND) SUBCUT SCH (06:14)
[2016-07-14 07:10] LABS: BUN/Creatinine Ratio 17.5 (8-20); Calcium 8.5 mg/dL (8.6-10.3); EGFR African American 185.1 (>60); EGFR Non-African American 143.9 (>60); Magnesium 1.8 mg/dL (1.9-2.7); Potassium 4.1 mmol/L (3.5-5.0)
[2016-07-14] MEDS ORDERED: Insulin GLARGINE(*) 1 UNITS UNIT SUBCUT SCH (08:49)
[2016-07-14] MEDS: Insulin LISPRO* 1 UNITS UNIT SUBCUT SCH ×8 (09:31→22:45)
[2016-07-14] MEDS: Pantoprazole IV* 40 MG IV SCH (11:22)
[2016-07-14] MEDS: Sertraline* 50 MG TAB PO SCH (11:22)
[2016-07-14] MEDS: Docusate CAP* 100 MG PO SCH ×2 (11:22→21:38)
[2016-07-14] MEDS: Hydrochlorothiazide TAB* 50 MG PO SCH (11:22)
[2016-07-14] MEDS: Venlafaxine EXT RELEASE CAP* 75 MG PO SCH (11:23)
[2016-07-14] MEDS: ceFUROXime TAB(*) 250 MG PO SCH ×2 (11:23→21:37)
[2016-07-14] MEDS: Clopidogrel TAB* 75 MG PO SCH (11:24)
[2016-07-14] MEDS: Aspirin EC Low Dose* 81 MG TAB.EC PO SCH (11:24)
[2016-07-14] MEDS: Atorvastatin* 20 MG TAB PO SCH (13:02)
[2016-07-14] MEDS: Methylphenidate TAB* 5 MG PO SCH ×2 (14:19→18:07)
[2016-07-14] MEDS ORDERED: Atorvastatin* 20 MG TAB PO SCH (21:00)
--- NOTE | 2016-07-15 03:22 | DS ---
DISCHARGE SUMMARY: DATE OF ADMISSION: 07/05/16 DATE OF DISCHARGE: 07/14/16 DISCHARGE DIAGNOSES: 1. Diabetic ketoacidosis secondary to a kinked infusion set with insulin pump. 2. Pneumonia involving right lung. 3. Sepsis criteria versus systemic inflammatory response syndrome at presentation. 4. Altered mental status. 5. Congestive cardiac failure/volume overload, likely systolic and diastolic, acute. 6. Respiratory failure. Comorbidities: Acute bronchitis, altered mental state. SECONDARY DIAGNOSES: 1. Type 1 diabetes mellitus with diabetic retinopathy. 2. History of coronary artery disease and S/P CABG x5. 3. Hypercholesterolemia. 4. History of cerebrovascular accident. 5. Essential hypertension. 6. Depression. 7. Mild cognitive deficit owing to previous cerebrovascular accident. HISTORY OF PRESENTING ILLNESS: Marck Molina is a 66-year-old white right -handed male. His presentation as documented in Dr. Jaylon Torres's admitting history and physical, which is part of the electronic medical record. He presented with a history of several days of increasing fatigue, generalized weakness, malaise. He had a fall, no head injury, felt weak and nauseated. He had vomiting on the day of presentation. He had a dry cough and shortness of breath. When his insulin pump was removed, the line was kinked. INITIAL EXAMINATION: Temperature 37.8 degrees celsius, pulse 103, respirations 20, blood pressure 114/48, pulse oximetry 98%. Mucous membranes were dry. Pulmonary: His chest was clear. Good aeration. No accessory muscle use. Cardiovascular System: Normal heart sounds. No JVD. Abdomen was benign. He was alert and oriented, acutely sick, cooperative. INITIAL INVESTIGATIONS: White count 20.5, hemoglobin 12.1, hematocrit 38, platelets 246, neutrophil percent 86%. ABGs; pH 7.2, pCO2 of 21, pO2 of 109, bicarbonate 10.9, O2 saturation 99.1%, base excess -18. Chemistry; sodium 128, potassium 4.7, chloride 92, bicarbonate 12, anion gap 24, BUN 31, creatinine 1.16, EGFR 63.4, glucose 584, calcium 8.5, magnesium 1.8. AST 9, ALT 16, ALP 74. C- reactive protein 22.95. Globulin 1.9. INITIAL IMPRESSION: 1. Diabetic ketoacidosis. He was transferred to the ICU and was given volume and IV insulin. 2. Infection, initially suspected viral. Rapid influenza check performed and was started on empiric piperacillin and tazobactam. 3. Fall. He had some extended flow time. CK was checked. INVESTIGATIONS DURING HOSPITALIZATION: IMAGING: He had multiple chest x-rays, the first two on 07/05/16 and 07/06/16 showed no infiltrates. By the evening of 07/06/16, he had a new right basilar infiltrate. On 07/08/16, progressive infiltration, possible consequence of cardiogenic pulmonary edema, small left pleural effusion. On 07/09/16, bilateral airspace disease, mild progression pneumonitis considered. On , improvement in bilateral infiltrates. EKGs; sinus tachycardia, left posterior fascicular block. No acute ST-T wave changes. Low voltage in the limb leads. On 07/11/16, transthoracic echocardiogram, mild global hypokinesia, left ventricular ejection fraction 45% to 50%, pseudonormalization of the left ventricular diastolic filling time, trace AR, moderate MR, trace TR. LAB INVESTIGATIONS: Procalcitonin 07/07/16, 1.0; 07/09/16, 0.6. C-reactive protein series at presentation on 07/05/16, 22.95; maximum value on 07/09/16, 99.78; and on 07/13/16, 49.26. TSH at presentation 0.58. BNP 07/07/16, 406; , 781; 07/12/16, 955. CK at presentation 112. Lactic acid at presentation was 3.2, maximum on 07/06/16 at 5.0. HOSPITAL COURSE: He spent the first few days in the hospital in the ICU. He had altered mental status, was disoriented. He developed a paroxysmal cough and respiratory failure, he required a Salter nasal cannula at 6 L per minute. He had an episode of aspiration, which was treated with a Heimlich maneuver. His oxygen desaturation worsened after that and then subsequently improved. He developed lung infiltrates initially, I thought this was due to pneumonia in view of the increasing CRP. He then developed signs of volume overload/CHF, which I treated with diuretics. His diabetic ketoacidosis was resolved with IV volume and IV insulin. We transferred him on to a basal bolus regimen with Lantus and Humalog insulin. He was not able to resume his insulin pump owing to his mental state. After transfer to a general medical bed, we had started him on some prednisone for the pneumonia and his blood sugars were a littler higher. We also treated him with IV antibiotics, to which he responded. I gave him IV furosemide for his volume overload/CHF, this resolved. I note at presentation he had laboratory findings suggestive of sepsis versus SIRS. This was a complicated presentation as he had a dual diagnosis of both a respiratory infection and also DKA, the latter being exacerbated by an interruption of his insulin pump delivery. On the day of discharge, he is feeling much better, he is awake and alert and oriented, and can give a somewhat vague account of his illness. He denies any chest pain, shortness of breath, or palpitations. His edema is improved. He remains very weak. He is coughing, but he is no longer dyspneic. He is requiring oxygen therapy. REVIEW OF SYSTEMS: He has had no fevers or sweats. He feels weak and fatigued. Cardiovascular System: He has had no chest pain. He still has some mild shortness of breath. No edema. No palpitations. Respiratory System: He has a cough, which is more productive than initially. No wheeze. Gastrointestinal System: Some anorexia. No nausea, vomiting. He had some loose stools, this is improving. Genitourinary System: No problems. Nervous System: Denies headache. He is not back to his usual mental state. He is feeling generally weak. PHYSICAL EXAMINATION: Temperature 99.2, pulse 54, respirations 26, oxygen saturation 100% on 4 L, blood pressure 118/60. No cyanosis, anemia, jaundice, clubbing, or lymphadenopathy. Mucous membranes are normal. Cardiovascular System: His pulse was regular, normal character and volume. Venous pressure was not distended. Heart sounds were normal. He has a left systolic soft murmur. He has no pedal edema. No carotid bruits. Respiratory System: He has symmetrical chest expansion. Percussion note was dull, both bases. Breath sounds diminished at both bases. No crackles or wheezes. Abdominal Examination : No distention, masses, tenderness, or organomegaly. Nervous System: He is alert and oriented x3. Conjugate eye movements. Cranial nerves II through XII intact. Arm and Legs: He has generalized weakness but no focal weakness. Foot Examination: No ulcers, calluses, or infections. INVESTIGATIONS ON THE DAY OF DISCHARGE: Chemistry: Sodium 128, potassium 4.1, chloride 94, bicarbonate 30, anion gap 4, BUN 10, creatinine 0.57, EGFR 143.9, glucose 204, calcium 8.5, magnesium 1.8. ASSESSMENT AND PLAN: 1. Diabetic ketoacidosis, this is resolved. I have stopped his prednisone. He is more insulin resistant than usual. I have increased his Lantus insulin today to 25 units. He should start a basal bolus regimen with carbohydrate counting 1 unit for every 10 g of carbohydrate and 1 unit for every 50 mg/dL, greater than 150 mg/dL. 2. Pneumonia, bronchitis. This has resolved with IV antibiotics. He is currently taking oral cefuroxime 500 twice daily for about 5 days. 3. Congestive heart failure/volume overload. He has improved and marked diuresis and weight loss. I have left him on hydrochlorothiazide 50 mg a day. He should have daily weights and ensure that he does not tip back into congestive heart failure. 4. Altered mental state. He is approaching his baseline. He usually complains of memory problems and some mild cognitive deficit. He should be able at baseline to manage an insulin pump. He is not quite there yet. 5. Generalized weakness. This is due to his prolonged illness and hospitalization. He will improve with physical rehabilitation as there is no new fixed deficit. 6. Coronary artery disease. No evidence of any acute problem. 7. Type 1 diabetes mellitus as noted above. Insulin therapy should be basal bolus regimen with carb counting and consistent carbohydrate diet. 8. Essential hypertension, controlled. 9. History of cerebrovascular accident. No evidence of new fixed deficit. I have spoken with his each day in the hospital. She agrees with the management at present. She is unable to cope with him at home. DISCHARGE MEDICATIONS: 1. Cefuroxime 500 mg twice daily for 5 days. 2. Insulin glargine 25 units q.h.s. 3. Lispro insulin 1 unit for every 10 g of carbohydrate plus 1 unit for every 50 mg/dL above 150 mg/dL. He should have fingersticks a.c. and h.s. 4. Tramadol 50 mg 4 times a day p.r.n. for moderate pain. 5. Methylphenidate 5 mg twice daily. 6. Clopidogrel 75 mg daily. 7. Aspirin 81 mg daily. 8. Venlafaxine extended release 225 mg daily. 9. Atorvastatin 20 mg q.h.s. 10. Telmisartan 80 mg q.a.m. 11. Hydrochlorothiazide 50 mg q.a.m. 12. Diltiazem 240 mg SR daily. 13. Sertraline 150 mg daily. 14. Cetirizine 10 mg every day. 15. Diphenhydramine 25 mg q.a.m. as needed. 16. Alprazolam 0.5 mg q.h.s. p.r.n. Please note that cetirizine and diphenhydramine are both p.r.n. medications. [id number]/[facility] #: [id number] [facility]
--- NOTE | 2016-07-15 08:10 | PN ---
Subjective - Subjective Reason for Note: Discharge Note History: Discharge addendum - additional day He remained in an acute hospital bed pending insurance approval for [facility] discharge plan. This should be resolved today. He continues to have improvement in his breathing, has some cough. He had a major diuresis despite stopping the furosemide - taking HCTZ 50 mg daily. His glucose was high yesterday, this morning 175 mg/dl. His outpatient psychiatrist is Dr. Almita Fox. Active Problems: Active Problems Acute bronchitis (Acute) J20.9 Acute combined systolic and diastolic congestive heart failure (Acute) I50.41 Cognitive decline (Acute) R41.89 Lung infiltrate (Acute) R91.8 Pneumonia involving right lung (Acute) J18.9 Type 1 diabetes mellitus with diabetic retinopathy (Acute) E10.319 Volume overload (Acute) E87.70 Coronary artery disease (Chronic) I25.10 Depression (Chronic) F32.9 Essential hypertension (Chronic) I10 History of CVA (cerebrovascular accident) (Chronic) Z86.73 Hypercholesterolemia (Chronic) E78.00 Insulin pump status (Chronic) Z96.41 S/P CABG x 5 (Chronic) Z95.1 Current Medications: Current Medications Acetaminophen (Tylenol Tab*) 650 mg PO Q6H PRN PRN Reason: FEVER/PAIN Last Admin: 07/09/16 21:19 Dose: 650 mg Acetaminophen (Tylenol Tab*) 650 mg PO Q4H PRN PRN Reason: FEVER Aspirin (Aspirin Ec Low Dose*) 81 mg PO QAM [facility] Last Admin: 07/14/16 11:24 Dose: 81 mg Atorvastatin Calcium (Lipitor*) 20 mg PO BEDTIME [facility] Last Admin: 07/14/16 21:37 Dose: 20 mg Cefuroxime Axetil (Ceftin Tab(*)) 500 mg PO BID [facility] Last Admin: 07/14/16 21:37 Dose: 500 mg Clopidogrel Bisulfate (Plavix Tab*) 75 mg PO QAM [facility] Last Admin: 07/14/16 11:24 Dose: 75 mg Dextrose (D50w Syringe 50 Ml*) 12.5 gm IV PUSH .FOR FS < 60 - SS PRN PRN Reason: FS < 60 Last Admin: 07/06/16 19:42 Dose: 12.5 gm Docusate Sodium (Colace Cap*) 200 mg PO BID [facility] Last Admin: 07/14/16 21:38 Dose: 200 mg Guaifenesin (Robitussin*) 10 ml PO Q4H PRN PRN Reason: COUGH Last Admin: 07/13/16 21:25 Dose: 10 ml Hydrochlorothiazide (Hydrodiuril Tab*) 50 mg PO DAILY [facility] Last Admin: 07/14/16 11:22 Dose: 50 mg Insulin Glargine (Lantus(*)) 25 units SUBCUT Q24H [facility] Last Admin: 07/14/16 09:30 Dose: 25 unit Insulin Human Lispro (Humalog*) 1 units SUBCUT FS ACHS ICU [facility] PRN Reason: Protocol Last Admin: 07/14/16 22:45 Dose: Not Given Insulin Human Lispro (Humalog*) 0 units SUBCUT ACHS [facility] PRN Reason: Protocol Last Admin: 07/14/16 22:44 Dose: 2 units Melatonin (Melatonin (Nf)) 3 mg PO BEDTIME PRN; Protocol PRN Reason: Sleep Methylphenidate HCl (Ritalin Tab*) 5 mg PO 0900,1800 [facility] Last Admin: 07/14/16 18:07 Dose: 5 mg Ondansetron HCl (Zofran Inj*) 4 mg IV Q6H PRN PRN Reason: NAUSEA Last Admin: 07/07/16 08:20 Dose: 4 mg Pantoprazole Sodium (Protonix Iv*) 40 mg IV DAILY [facility] Last Admin: 07/14/16 11:22 Dose: 40 mg Prochlorperazine Edisylate (Compazine Inj*) 10 mg IV Q6H PRN PRN Reason: NAUSEA Sertraline HCl (Zoloft*) 150 mg PO DAILY [facility] Last Admin: 07/14/16 11:22 Dose: 150 mg Venlafaxine HCl (Effexor Xr Cap*) [facility] [place] [facility] Reason: Protocol Last Admin: 07/14/16 11:23 Dose: 225 mg Home Medications: Home Medications Medication Instructions Recorded Confirmed Type Alprazolam [Xanax] 0.5 mg PO BEDTIME PRN 05/25/12 07/05/16 History Aspirin 81 mg PO QAM 05/25/12 07/05/16 History Atorvastatin* [Lipitor*] 20 mg PO QAM 05/25/12 07/05/16 History Clopidogrel Bisulfate [Clopidogrel] 75 mg PO QAM 05/25/12 07/05/16 History Diltiazem HCl Coated Beads 240 mg PO QAM 05/25/12 07/05/16 History [Diltiazem Cd] Hydrochlorothiazide 50 mg PO QAM 05/25/12 07/05/16 History Insulin Lispro [Humalog] 30 unit SUBCUT SEE INSTRUCTIONS 05/25/12 07/05/16 History Methylphenidate HCl [Ritalin] 5 mg PO BID 05/25/12 07/05/16 History Telmisartan [Micardis] 80 mg PO QAM 05/25/12 07/05/16 History Venlafaxine CAP (NF) [Effexor CAP 3 tab PO QAM 05/25/12 07/05/16 History (NF)] traMADol TAB* [Ultram*] 50 mg PO QID PRN 05/25/12 07/05/16 History Cetirizine* [ZyrTEC 10 MG TAB*] 10 mg PO DAILY 08/27/15 07/05/16 History Sertraline* [Zoloft*] 150 mg PO DAILY 08/27/15 07/05/16 History diPHENhydraMINE PO* [Benadryl PO 25 mg PO QAM 08/27/15 07/05/16 History 25 MG TAB*] Insulin GLARGINE(*) [Lantus(*)] 25 units SUBCUT Q24H #1 bottle 07/14/16 Rx Insulin LISPRO* [HumaLOG*] 1 units SUBCUT FS ACHS ICU #1 07/14/16 Rx bottle ceFUROXime TAB(*) [Ceftin TAB 250 500 mg PO BID #10 tab 07/14/16 Rx MG(*)] Allergies: Allergies Allergy/AdvReac Type Severity Reaction Status Date / Time Latex Allergy RASH, Verified 07/05/16 22:20 IRRITATION Meperidine [From Demerol HCl] AdvReac NIGHTMARES, Verified 07/05/16 22:20 CHILLS, SWEATS Objective - Vital Signs Vital Signs: Vital Signs 07/14/16 07/14/16 07/14/16 08:25 10:21 15:17 Temperature 99.2 F 98.2 F Pulse Rate 54 66 Respiratory 26 28 Rate Blood Pressure 118/60 95/52 (mmHg) O2 Sat by Pulse 100 97 98 Oximetry 07/14/16 07/14/16 07/14/16 19:28 21:43 23:26 Temperature 97.3 F Pulse Rate 58 Respiratory 18 Rate Blood Pressure 109/52 (mmHg) O2 Sat by Pulse 97 95 Oximetry 07/15/16 07/15/16 01:36 07:21 Temperature 98.1 F Pulse Rate 59 Respiratory 18 Rate Blood Pressure 112/56 (mmHg) O2 Sat by Pulse 97 100 Oximetry - Intake and Output Intake and Output: Intake & Output 07/12/16 07/13/16 07/14/16 07/15/16 11:59 11:59 11:59 11:59 Intake Total 2113.1 1660 980 910 Output Total 3400 3125 3535 2575 Balance -1286.9 -1465 -2555 -1665 Weight 155 lb 11.2 oz 154 lb 14.4 oz 142 lb 11.2 oz 138 lb 6.4 oz Intake: IV Fluids 205.1 0 ABX - PIPERACILLIN 105 NS (0.9%) 100.1 0 IVPB 578 0 ABX - PIPERACILLIN 318 0 ABX - VANCOMYCIN 260 0 Oral 1330 1660 980 910 Output: Urine 3400 3125 3535 2575 Other: Estimated Void Large Medium # Bowel Movements 1 1 0 0 Estimated Stool Amount Small Large Large # Voids 2 1 ADLs: Meal Record Start: 07/05/16 23: 49 Freq: 09,13,18 Status: Inactive Document 07/06/16 09:00 [id number] (Rec: 07/06/16 09:31 [id number] ICU-C15) Document 07/06/16 13:00 [id number] (Rec: 07/06/16 14:41 [id number] ICU-C10) Document 07/06/16 18:00 [id number] (Rec: 07/06/16 19:33 [id number] ICU-C10) Document 07/07/16 09:00 [id number] (Rec: 07/07/16 10:36 [id number] ICU-C15) Document 07/07/16 13:00 [id number] (Rec: 07/07/16 14:30 [id number] ICU-C15) Document 07/07/16 18:00 PVZ7680 (Rec: 07/07/16 18:53 [id number] ICU-M02) Document 07/08/16 09:00 [id number] (Rec: 07/08/16 09:50 [id number] ICU-C15) Document 07/08/16 13:00 IHI4894 (Rec: 07/08/16 13:15 [id number] ICU-M20) Document 07/08/16 18:00 VJH5434 (Rec: 07/08/16 18:41 [id number] ICU-C15) Document 07/09/16 09:00 AIP0849 (Rec: 07/09/16 10:50 [id number] ICU-C15) Document 07/09/16 13:00 CWY8100 (Rec: 07/09/16 13:02 EBV9728 ICU-C15) Document 07/09/16 18:00 ZXI3720 (Rec: 07/09/16 18:07 [id number] ICU-C15) Document 07/10/16 09:00 ULF1676 (Rec: 07/10/16 10:31 [id number] ICU-C16) Document 07/10/16 13:00 VBV8887 (Rec: 07/10/16 14:12 [id number] ICU-C25) ADLs: Meal Record Start: 07/10/16 14: 58 Freq: DAILY@0900,1400,1800 Status: Active Created 07/10/16 14:58 [id number] (Rec: 07/10/16 14:58 HUE5500 MED-C15) Document 07/10/16 18:00 YYE4380 (Rec: 07/10/16 18:19 [id number] MED-C11) Document 07/11/16 09:00 PVQ6255 (Rec: 07/11/16 11:06 [id number] MED-C11) Document 07/11/16 14:00 [id number] (Rec: 07/11/16 14:35 HTL0915 MED-C09) Document 07/11/16 18:00 NMT1066 (Rec: 07/11/16 19:13 FYX8730 MED-C11) Document 07/12/16 09:00 WMT0910 (Rec: 07/12/16 10:40 [id number] MED-C09) Document 07/12/16 13:57 [id number] (Rec: 07/12/16 14:00 [id number] MED-C09) Document 07/12/16 18:00 BHV5048 (Rec: 07/12/16 18:38 [id number] MED-C11) Document 07/13/16 09:00 SVZ0946 (Rec: 07/13/16 09:28 FMP2208 MED-C09) Document 07/13/16 14:00 MJX1194 (Rec: 07/13/16 14:18 PEI5658 MED-C11) Document 07/14/16 09:00 XLZ7561 (Rec: 07/14/16 09:39 [id number] MED-C09) Document 07/14/16 13:09 AVA4194 (Rec: 07/14/16 13:11 IEP0810 MED-C09) Document 07/14/16 18:00 WIU9703 (Rec: 07/14/16 18:39 ZJS5789 MED-C09) Intake and Output Start: 07/05/16 23: 49 Freq: 06,14,22 Status: Inactive Document 07/06/16 06:00 XNM1071 (Rec: 07/06/16 06:12 LIE3359 ICU-C14) Document 07/06/16 11:40 JPC5599 (Rec: 07/06/16 11:40 PXK7044 ICU-C15) Document 07/06/16 13:50 AHP8845 (Rec: 07/06/16 13:51 GHJ0166 ICU-C16) Document 07/06/16 22:00 YPY8559 (Rec: 07/06/16 23:01 EFZ7888 ICU-C15) Document 07/07/16 06:00 NUS5152 (Rec: 07/07/16 07:53 RHG8649 ICU-C22) Document 07/07/16 14:00 ATP2779 (Rec: 07/07/16 14:47 ZRM9104 ICU-C15) Document 07/07/16 15:46 OHI4954 (Rec: 07/07/16 15:47 [id number] ICU-C15) Document 07/07/16 18:53 YGT1135 (Rec: 07/07/16 18:53 CXT9983 ICU-M02) Document 07/07/16 18:53 NFQ0636 (Rec: 07/07/16 18:53 FYI1248 ICU-M02) Document 07/07/16 22:00 BAE8927 (Rec: 07/07/16 23:19 KWJ3807 ICU-C15) Document 07/08/16 06:00 EZC2340 (Rec: 07/08/16 06:45 GRI3569 ICU-C15) Document 07/08/16 09:35 QCW4171 (Rec: 07/08/16 09:35 JXT3970 ICU-C15) Document 07/08/16 13:38 KNJ3864 (Rec: 07/08/16 13:39 CBV9093 ICU-C15) Document 07/08/16 16:30 GEA8953 (Rec: 07/08/16 16:30 JJI0000 ICU-C15) Document 07/08/16 21:33 BJU3030 (Rec: 07/08/16 21:33 MUS9893 ICU-C14) Document 07/09/16 05:43 YDI6220 (Rec: 07/09/16 05:44 ZWB7370 ICU-C14) Document 07/09/16 14:00 DRB1365 (Rec: 07/09/16 14:31 NKP4153 ICU-M02) Document 07/09/16 22:00 OSX2114 (Rec: 07/10/16 00:15 GRG4708 ICU-C25) Document 07/10/16 05:29 NTQ1077 (Rec: 07/10/16 05:29 KLL4334 ICU-M02) Document 07/10/16 10:14 SST8066 (Rec: 07/10/16 10:15 [id number] ICU-C16) Document 07/10/16 11:54 PHQ9289 (Rec: 07/10/16 11:54 KAF5635 ICU-C16) Document 07/10/16 13:37 PIU0685 (Rec: 07/10/16 13:37 NTV6449 ICU-C25) Document 07/10/16 13:56 ESP8581 (Rec: 07/10/16 13:56 LZL1523 ICU-M02) Intake and Output Start: 07/10/16 14: 58 Freq: DAILY@0600,1400,2200 Status: Active Created 07/10/16 14:58 OYB2063 (Rec: 07/10/16 14:58 YCL2874 MED-C15) Document 07/10/16 22:00 LBO4146 (Rec: 07/10/16 22:06 YBI5749 MED-C11) Document 07/11/16 06:00 AOE8171 (Rec: 07/11/16 06:09 BAQ1005 MEDL-C01) Document 07/11/16 13:55 CEF4454 (Rec: 07/11/16 15:55 LMY3112 MED-C02) Document 07/11/16 14:00 HBI0361 (Rec: 07/11/16 14:35 AWM0967 MED-C09) Document 07/11/16 22:00 NRG0357 (Rec: 07/11/16 22:10 BEU7428 MED-C11) Document 07/12/16 04:50 PEX2900 (Rec: 07/12/16 04:50 ACO3383 MED-C09) Document 07/12/16 13:57 OKM2414 (Rec: 07/12/16 14:00 GVY2936 MED-C09) Document 07/12/16 14:52 ATL4561 (Rec: 07/12/16 14:54 XCN2698 MED-C05) Document 07/12/16 16:49 QRN3694 (Rec: 07/12/16 16:50 ZWP9135 MED-C14) Document 07/12/16 22:00 TZL4011 (Rec: 07/12/16 22:46 JJL0391 MED-C11) Document 07/13/16 04:11 QXM7698 (Rec: 07/13/16 04:11 MTW7942 MED-C42) Document 07/13/16 14:00 OSG5889 (Rec: 07/13/16 14:18 WHB5576 MED-C11) Document 07/13/16 22:00 TOD1197 (Rec: 07/13/16 22:39 JQW7388 MED-C09) Document 07/14/16 04:32 XTZ7082 (Rec: 07/14/16 04:32 IKU4188 MED-C42) Document 07/14/16 13:12 BYW1851 (Rec: 07/14/16 13:12 OIA6728 MED-C09) Document 07/14/16 22:00 UZY9101 (Rec: 07/14/16 22:30 [id number] MEDL-C02) Document 07/15/16 05:16 [id number] (Rec: 07/15/16 05:28 [id number] MED-C09) - Physical Exam General: No Cyanosis, No Anemia, No Jaundice, No Clubbing Lungs and Chest: Yes: Chest Expansion Symetrica, Vessicular Breath Sounds - diminished bases, Crackles - some at bases. No: Chest Expansion Full - shallow , but symmetric, Percussion Note Resonant - dull bases, Wheezes, Respiratory Distress, Use of Accessory Muscles Heart Rate and Rhythm: Regular JVP: Not Elevated Additional Cardiovascular: Yes: Normal Heart Sounds. No: Heart Murmur - soft at LSE, Pedal Edema Abdominal Exam: Yes: Soft, Bowel Sounds Present. No: Distention, Abdominal Mass , Abdominal Tenderness Results - Results Lab Results: Laboratory Results - last 24 hr 07/14/16 07/14/16 07/14/16 08:56 11:19 16:21 POC Glucose (mg/dL) 228 H 334 H 274 H 07/14/16 21:03 POC Glucose (mg/dL) 240 H Assessment - Problem List Assessment: Patient Problems Acute bronchitis (Acute) Acute combined systolic and diastolic congestive heart failure (Acute) Cognitive decline (Acute) Lung infiltrate (Acute) Pneumonia involving right lung (Acute) Type 1 diabetes mellitus with diabetic retinopathy (Acute) Volume overload (Acute) Coronary artery disease (Chronic) Depression (Chronic) Essential hypertension (Chronic) History of CVA (cerebrovascular accident) (Chronic) Hypercholesterolemia (Chronic) Insulin pump status (Chronic) S/P CABG x 5 (Chronic) Plan: Acute bronchitis (Acute) improved Acute combined systolic and diastolic congestive heart failure (Acute) Major diuresis. He tells me his usual weight is around 135 lbs and he is now close to this weight. I will reduce the dose of HCTZ to 25 mg daily Cognitive decline (Acute) I think this is exacerbated by high doses of psychopharmacology - see below Lung infiltrate (Acute) Improving Pneumonia involving right lung (Acute) improving Type 1 diabetes mellitus with diabetic retinopathy (Acute) Since he started eating/drinking his FS have been higher. I will increase his lantus to 30 units qhs, and change his correction dose Volume overload (Acute) back to baseline - he has had a major loss off of surplus water Coronary artery disease (Chronic) stable Depression (Chronic) I think that the dose of his psychopharmacology is too high for his current physical state. I will reduce the dose of sertraline and venlafaxine Essential hypertension (Chronic) stable History of CVA (cerebrovascular accident) (Chronic) Hypercholesterolemia (Chronic) continue current rx Insulin pump status (Chronic) Not ready to reinstate S/P CABG x 5 (Chronic) I think he is ready for discharge to [facility]. I discussed this with the patient.
[2016-07-15] MEDS ORDERED: Venlafaxine EXT RELEASE CAP* 37.5 MG PO SCH (08:13)
[2016-07-15] MEDS ORDERED: Sertraline* 50 MG TAB PO SCH (08:13)
[2016-07-15] MEDS: Pantoprazole IV* 40 MG IV SCH (08:57)
[2016-07-15] MEDS: Insulin LISPRO* 1 UNITS UNIT SUBCUT SCH ×5 (08:57→12:52)
[2016-07-15] MEDS: Clopidogrel TAB* 75 MG PO SCH (08:59)
[2016-07-15] MEDS: ceFUROXime TAB(*) 250 MG PO SCH (08:59)
[2016-07-15] MEDS: Aspirin EC Low Dose* 81 MG TAB.EC PO SCH (08:59)
[2016-07-15] MEDS: Methylphenidate TAB* 5 MG PO SCH (09:00)
[2016-07-15] MEDS ORDERED: Hydrochlorothiazide TAB* 25 MG PO SCH ×2 (09:00)
[2016-07-15] MEDS: Docusate CAP* 100 MG PO SCH (09:00)
[2016-07-15] MEDS ORDERED: Sertraline* 25 MG TAB PO SCH (09:00)
[2016-07-15 14:23] VITALS: BP 120/48
[2016-07-15] MEDS ORDERED: Insulin GLARGINE(*) 1 UNITS UNIT SUBCUT SCH (18:00)
== END 2016-07-15 15:19 | DRG 813 ==
LOC: ED 19:09 → ICU 23:41 → MED 07-10 10:06
PROVIDERS: ADMIT Hospitalist; ATTEND Internal Medicine
DX: T85.694A Other mechanical complication of insulin pump, initial encounter (principal); E10.10 Type 1 diabetes mellitus with ketoacidosis without coma; J96.90 Respiratory failure, unspecified, unspecified whether with hypoxia or hypercapnia; I50.41 Acute combined systolic (congestive) and diastolic (congestive) heart failure; J18.9 Pneumonia, unspecified organism; E10.649 Type 1 diabetes mellitus with hypoglycemia without coma; I11.0 Hypertensive heart disease with heart failure; I25.10 Atherosclerotic heart disease of native coronary artery without angina pectoris; Z96.41 Presence of insulin pump (external) (internal); F41.9 Anxiety disorder, unspecified; F32.9 Major depressive disorder, single episode, unspecified; E78.5 Hyperlipidemia, unspecified; W19.XXXA Unspecified fall, initial encounter; E87.70 Fluid overload, unspecified; R19.7 Diarrhea, unspecified; E10.319 Type 1 diabetes mellitus with unspecified diabetic retinopathy without macular edema; E78.00 Pure hypercholesterolemia, unspecified; X58.XXXA Exposure to other specified factors, initial encounter; T17.920A Food in respiratory tract, part unspecified causing asphyxiation, initial encounter; Y92.239 Unspecified place in hospital as the place of occurrence of the external cause; J20.9 Acute bronchitis, unspecified; R41.81 Age-related cognitive decline; T38.3X6A Underdosing of insulin and oral hypoglycemic [antidiabetic] drugs, initial encounter; R41.82 Altered mental status, unspecified; I69.319 Unspecified symptoms and signs involving cognitive functions following cerebral infarction; I44.5 Left posterior fascicular block; I08.3 Combined rheumatic disorders of mitral, aortic and tricuspid valves; R53.1 Weakness; Z79.4 Long term (current) use of insulin; Z79.02 Long term (current) use of antithrombotics/antiplatelets; Z79.82 Long term (current) use of aspirin; Z88.5 Allergy status to narcotic agent; Z91.040 Latex allergy status; I25.2 Old myocardial infarction; Z82.49 Family history of ischemic heart disease and other diseases of the circulatory system; Z87.891 Personal history of nicotine dependence; Z95.1 Presence of aortocoronary bypass graft; Z98.42 Cataract extraction status, left eye; Z98.41 Cataract extraction status, right eye; Z83.3 Family history of diabetes mellitus; Z82.3 Family history of stroke; Z83.49 Family history of other endocrine, nutritional and metabolic diseases; Y92.009 Unspecified place in unspecified non-institutional (private) residence as the place of occurrence of the external cause
CPT/HCPCS: 36415; 36600; 71010; 71020; 80048; 80053; 80076; 81003; 82550; 82803; 82947; 83036; 83605; 83735; 83880; 84145; 84443; 85025; 85027; 86140; 86157; 87040; 87045; 87046; 87070; 87077; 87205; 87493; 87502; 87641; 87899; 93005; 93306; 94760; 99203; A9270-GY; G0463; J0456; J1644; J1940; J2405; J2543; J7512

== ENCOUNTER 2016-07-15 14:07 | Inpatient (IN) | payer BC, MEDICARE ==
[2016-07-15] MEDS ORDERED: Acetaminophen TAB* 325 MG PO PRN (15:42)
[2016-07-15] MEDS ORDERED: Bisacodyl SUPP* 10 MG SUPP PR PRN (15:42)
[2016-07-15] MEDS ORDERED: Senna TAB PO PRN (15:42)
[2016-07-15] MEDS ORDERED: Dextrose 50% Syringe 50 ML* 25 GM/50 ML SYRINGE IV PUSH PRN (16:19)
[2016-07-15] MEDS: Insulin LISPRO* 1 UNITS UNIT SUBCUT SCH ×4 (16:40→21:49)
[2016-07-15] MEDS: Methylphenidate TAB* 5 MG PO SCH (17:58)
[2016-07-15] MEDS ORDERED: Insulin GLARGINE(*) 1 UNITS UNIT SUBCUT SCH (18:00)
[2016-07-15] MEDS: Atorvastatin* 20 MG TAB PO SCH (20:52)
[2016-07-15] MEDS: ceFUROXime TAB(*) 250 MG PO SCH (20:52)
[2016-07-15] MEDS: Docusate CAP* 100 MG PO SCH (21:15)
--- NOTE | 2016-07-15 23:53 | HP ---
ADMISSION HISTORY AND PHYSICAL: DATE OF ADMISSION: 07/15/16 REASON FOR ADMISSION: Diabetic amyotrophy following a recent illness. HISTORY OF PRESENT ILLNESS: Marck Rodríguez is a 66-year-old insulin- dependent diabetic. The patient uses an insulin pump to help manage his diabetes. He is a patient of Dr. Jason Chaudhary. Apparently, the patient was in his usual state of health until 07/05/16. Apparently, his insulin pump got kinked and the pump was not working properly. He called to be brought to the hospital. Apparently on 07/04/16, he had fallen at home. He was having difficulty with his orientation. He was brought to the emergency room. In the emergency room, he was found to have a glucose of 584. There was some concern for sepsis as he had a slightly elevated temperature and a white count of 20, 000. He was admitted to [facility]. He was put on IV fluids and IV insulin. He was ruled out for influenza. The patient continued on fluids. His insulin pump was discontinued. He was also felt to have an acute bronchitis , but it was felt to be viral and so, his IV antibiotics which he was started on admission was stopped. He developed high fevers and was found to have an infiltrate on chest x-ray. He was started on IV Zosyn and Zithromax. He was more confused. He slowly improved. The source of his pneumonia was not clear, although it was felt he might have had an aspiration pneumonia. He was noted to have bilateral infiltrates on x-ray. The patient continued on oxygen. His diabetic ketoacidosis had resolved. Physical Therapy was called to see him. He was found to be require contact guard to transfer. He required min assist to ambulate. He could only ambulate about 2 feet. He was noted to have some proximal muscle weakness. This was particularly in his lower extremities. He had a lot of trouble going from sitting to standing. The patient in addition had a lot of difficulty getting over his pneumonia and continued to require supplemental oxygen. The patient was felt to have physical therapy and occupational therapy needs. He is now being admitted for inpatient rehab, so that he might return to independent living. The patient did receive major diuresis while in the hospital. He did suffer some element of cognitive decline which Dr. Chaudhary felt might be due to his antidepressants and lowered the doses of them. The patient as mentioned is now being admitted for inpatient rehab so that he might return to independent living. PAST MEDICAL HISTORY: Include diabetes. He also has a history of coronary artery disease, chronic depression, hypertension. He has had a CVA in the past , congestive heart failure, hypercholesterolemia. CURRENT MEDICATIONS: Include: 1. Low dose aspirin. 2. Plavix. 3. He is on Lipitor. 4. Hydrochlorothiazide. 5. Lantus insulin. 6. Lispro insulin. 7. Ritalin. 8. Zoloft. 9. Effexor. 10. Protonix. 11. He is on Ceftin for his pneumonia. ALLERGIES: LATEX and DEMEROL. SOCIAL HISTORY: The patient is a nonsmoker, rare drinker. He lives with his in a 2-story house. He was independent with activities of daily living prior to admission. REVIEW OF SYSTEMS: The patient reports no current shortness of breath or chest pain. PHYSICAL EXAMINATION VITAL SIGNS: The patient's temperature is 98.1, blood pressure is 120/56, pulse of 58, respirations 20. HEENT: His extraocular movements appear to be intact. He is wearing 4 L of oxygen via nasal cannula. LUNGS: He had course breath sounds. HEART: Heart sounds are regular. S1, S2 are audible. ABDOMEN: Soft and nontender. EXTREMITIES: Peripheral pulses were intact. No edema was noted. NEUROLOGIC: The patient is awake, alert. He is oriented to himself. Muscle strength, he showed significant hip flexor weakness bilaterally. Dorsiflexion and plantar flexion were at least 4/5 in his lower extremities. Upper extremities appear to be at least 4+/5 throughout. His functional exam, the patient transfers from contact guard to min assist. ASSESSMENT: 1. 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 2. Weakness following a prolonged illness with medical complexity. PLAN: Integrate him into comprehensive and therapeutic rehab program with the following goals: 1. Physical Therapy will work with patient. They are going to work on functional transfer training and ambulation training with a walker. 2. Occupational Therapy will see the patient, work on his activities of daily living including toileting and toilet transfers. 3. Heparin for DVT prophylaxis. 4. Adequate analgesia. 5. His bowels will be regulated. 6. We will continue his Ritalin, Zoloft, and Effexor at lower doses for his depression. 7. Continue Lantus and lispro for his diabetes. Dr. Chaudhary will follow up as needed. 8. Advanced directives: The patient is a full code. He does have a healthcare proxy. 9. Continue Ceftin for pneumonia. Hope to finish dosing. 10. Family training as appropriate. 11. Home with appropriate services. ESTIMATED LENGTH OF STAY: 18 to 21 days. [id number] #: [id number] YEN
[2016-07-16 07:02] LABS: Hematocrit 33 % (42-52); Hemoglobin 11.1 g/dl (14.0-18.0); Mean Corpuscular HGB Conc 33 g/dl (31-36); Mean Corpuscular Hemoglobin 29 pg (27-31); Mean Corpuscular Volume 86 fL (80-94); Mean Platelet Volume 7 um3 (7.4-10.4); Red Blood Count 3.89 10^6/ul (4.0-5.4); Red Cell Distribution Width 13 % (10.5-15); White Blood Count 13.7 10^3/ul (3.5-10.8)
[2016-07-16 07:13] LABS: Add Diff/Slide Review? Slide Review Added; Comments Flag Yes
[2016-07-16 07:16] LABS: Albumin 2.7 g/dL (3.2-5.2); Calcium 8.3 mg/dL (8.6-10.3); EGFR African American 192.9 (>60); Globulin 2.5 g/dL (2-4); Potassium 4.3 mmol/L (3.5-5.0); Total Bilirubin 0.4 mg/dL (0.2-1.0); Total Protein 5.2 g/dL (6.4-8.9)
[2016-07-16] MEDS: Insulin LISPRO* 1 UNITS UNIT SUBCUT SCH ×9 (07:59→21:43)
--- NOTE | 2016-07-16 08:53 | PN ---
Progress Note - Progress Note Note: Endocrinology: His glycemic control is too high. He is now eating and drinking again. I increased his lantus yesterday to 30 units qhs. I will increase it to 18 units twice daily (during his hospitalization 20 units lantus bid caused hypoglycemia - but he wasn't eating much then). We may choose to restart his insulin pump if this continues to be problematic - he is much more alert and is close to being able to manage this once more.
[2016-07-16] MEDS: Insulin GLARGINE(*) 1 UNITS UNIT SUBCUT SCH ×2 (10:02→21:42)
[2016-07-16] MEDS: Docusate CAP* 100 MG PO SCH ×2 (10:04→21:40)
[2016-07-16] MEDS: Aspirin EC Low Dose* 81 MG TAB.EC PO SCH (10:04)
[2016-07-16] MEDS: Methylphenidate TAB* 5 MG PO SCH ×2 (10:04→17:12)
[2016-07-16] MEDS: Clopidogrel TAB* 75 MG PO SCH (10:04)
[2016-07-16] MEDS: Sertraline* 25 MG TAB PO SCH (10:05)
[2016-07-16] MEDS: Hydrochlorothiazide TAB* 25 MG PO SCH (10:05)
[2016-07-16] MEDS: Venlafaxine EXT RELEASE CAP* 37.5 MG PO SCH (10:05)
[2016-07-16] MEDS: ceFUROXime TAB(*) 250 MG PO SCH ×2 (10:05→21:40)
--- NOTE | 2016-07-16 12:57 | PMRUTEAM ---
PMRU: Goals Current Status: Physical Therapy: Current Status Bed Mobility Assistance Not Tested Transfer Moblility Assistance Supervision,Contact Guard Assist Transfer/Bed Mobility Rolling Walker Recommended Devices Ambulation Assistance Supervision,Contact Guard Assist Ambulation Assistive Devices Rolling Walker Number of Feet Patient 130' Ambulated Stairs Assistance Not Tested Stairs Recommended Devices Two Rails Number of Stairs 5 Curb Not Tested Occupational Therapy: Current Status Upper Body Dressing Supervision Lower Body Dressing Min Assist Bathing Contact Guard Assist Toileting Contact Guard Assist,Min Assist Toilet Transfer Contact Guard Assist Shower Transfer Contact Guard Assist,Min Assist Eating Supervision Goals: Physical Therapy: Initial Goals Bed Mobility Assistance Independent Transfer Mobility Assistance Independent Transfer/Bed Mobility None Recommended Devices Ambulation Independent Ambulation Recommended Devices None,Rolling Walker Ambulation Distance 150 Stairs Assistance Independent Stair Recommended Devices Two Rails Number of Stairs 12x2 Physical Therapy: Updated Goals Transfer/Bed Mobility Rolling Walker Recommended Devices Occupational Therapy: Initial Goals Goals to be Completed in (Days 10-14 ) Upper Body Bathing Routine Independent Lower Body Bathing Routine Modified Independent with Upper Body Dressing Routine Independent Lower Body Dressing Routine Modified Independent with Toilet Hygeine and Clothing Modified Independent with Management Routine Toilet Transfer Routine Modified Independent with Step-In Shower Transfer Modified Independent with Routine Tub Transfer Routine Modified Independent with Functional Transfers for ADL Modified Independent with Grooming Routine Independent Feeding Routine Independent Care Plan: Care Plan ADL's - Improve/Maintain Start: 07/16/16 02:28 Freq: QSHIFT Status: Active Target: Activity Type Activity Date Activity User E-Sign Co-Sign Detail Recorded Client Recorded Date Recorded By Document 07/16/16 12:24 [id number] [id number] 07/16/16 12:25 [id number] 07/16/16 12:24 PMRU Outcome: ADL's/ADL Transfers Orders/Interventions Occupational Therapy Evaluation & Treatment Communication Tool in Patient Room Device Yes Patient to receive OT 5x/wk for 60-120 Therex min/day Self Care Management Group Therapy UE/LE ADL's with Assist Yes: Rojelio ADL Transfers with Assist Yes: Rojelio Toileting: Transfers,Clothing Management Yes: Rojelio ,Hygeine w/Assist Progression Toward Outcome/Goals Progressing Communication-Improve/Maintain Start: 07/16/16 02:28 Freq: QSHIFT Status: Active Target: Activity Type Activity Date Activity User E-Sign Co-Sign Detail Recorded Client Recorded Date Recorded By Document 07/16/16 02:28 [id number] [id number] 07/16/16 02:29 [id number] 07/16/16 02:28 PMRU Outcome: Communication/Cognitive Status Outcome/Goals Makes Needs Known Effectively DVT Prophylaxis- Improve/Maintain Start: 07/16/16 02:28 Freq: QSHIFT Status: Active Target: Activity Type Activity Date Activity User E-Sign Co-Sign Detail Recorded Client Recorded Date Recorded By Document 07/16/16 02:29 [id number] [id number] 07/16/16 02:30 [id number] 07/16/16 02:29 PMRU Outcome: DVT Prophylaxis Outcome/Goals Remains Free of DVT TEDS Stockings on Every AM, Off at HS Discharge Planning - Improve/Maintain Start: 07/16/16 02:28 Freq: QSHIFT Status: Active Target: Activity Type Activity Date Activity User E-Sign Co-Sign Detail Recorded Client Recorded Date Recorded By Document 07/16/16 02:28 [id number] [email or web address] 07/16/16 02:29 [id number] 07/16/16 02:28 PMRU Outcome: Discharge Planning Outcome/Goals Demonstrates Understanding of Discharge Plan Education-Improve/Maintain Start: 07/16/16 02:28 Freq: QSHIFT Status: Active Target: Activity Type Activity Date Activity User E-Sign Co-Sign Detail Recorded Client Recorded Date Recorded By Document 07/16/16 02:29 [id number] [id number] 07/16/16 02:30 [id number] 07/16/16 02:29 PMRU Outcome: Education Outcome/Goals Demonstrate/ Verbalize Understanding of Written Discharge Instructions Demonstrates Skills Encourage Questions Progression Toward Outcome/Goals Progressing Metabolic Status- Improve/Maintain Start: 07/16/16 02:28 Freq: QSHIFT Status: Active Target: Activity Type Activity Date Activity User E-Sign Co-Sign Detail Recorded Client Recorded Date Recorded By Document 07/16/16 02:29 [id number] [email or web address] 07/16/16 02:30 [id number] 07/16/16 02:29 PMRU Outcome: Metabolic Status Have Fingersticks Been Ordered Yes Fingerstick Order Frequency AC & HS Outcome/Goals Maintain/ Improve Metabolic Status Demonstrate Knowledge of Prevention/ Treatment of Metabolic Imbalances Mobility- Improve/Maintain Start: 07/15/16 18:35 Freq: QSHIFT Status: Active Target: Activity Type Activity Date Activity User E-Sign Co-Sign Detail Recorded Client Recorded Date Recorded By Document 07/16/16 12:23 [id number] [email or web address] 07/16/16 12:24 [id number] 07/16/16 12:23 PMRU Outcome: Mobility Physical Therapy Evaluation and Yes Treatment Activity OOB with Assistance Yes Device Yes Assistance Yes Patient to be seen 5x/wk for 60-120 min/ Therex day for: Mobility Training W/C Mobility Balance Outcome/Goals Maintain/ Achieve Baseline Mobility Status Improve Mobility Status Demonstrates Proper Use of Assistive Devices Free from Complications of Immobility Progression Toward Outcome/Goals Progressing Bed Mobility Yes: independent Transfers Yes: independent Gait x ft Yes: independent 150 ' W/C Mobility x ft Yes Up/Down Stairs Yes: independent up/ down 2 flights of stairs. Neurological- Improve/Maintain Start: 07/16/16 02:28 Freq: QSHIFT Status: Active Target: Activity Type Activity Date Activity User E-Sign Co-Sign Detail Recorded Client Recorded Date Recorded By Document 07/16/16 02:29 [id number] [email or web address] 07/16/16 02:30 [id number] 07/16/16 02:29 PMRU Outcome: Neurological Weakness/Aphasia Weakness Outcome/Goals Maintain/ Achieve Baseline Neurological Status Maintain/ Improve Strength/ROM Pain/Comfort- Improve/Maintain Start: 07/16/16 02:28 Freq: QSHIFT Status: Active Target: Activity Type Activity Date Activity User E-Sign Co-Sign Detail Recorded Client Recorded Date Recorded By Document 07/16/16 02:29 [id number] [email or web address] 07/16/16 02:30 [id number] 07/16/16 02:29 PMRU Outcome: Pain/Comfort Outcome/Goals Demonstrates Knowledge and Use of Available Comfort Measures Achieves Acceptable Comfort/Pain Level as Determined by Patient/Condit Maintain Comfort Level Allowing Patient to Fully Participate in Rehab Safety- Improve/Maintain Start: 07/16/16 02:28 Freq: QSHIFT Status: Active Target: Activity Type Activity Date Activity User E-Sign Co-Sign Detail Recorded Client Recorded Date Recorded By Document 07/16/16 02:29 [id number] [email or web address] 07/16/16 02:30 [id number] 07/16/16 02:29 PMRU Outcome: Safety Outcome/Goals Remain Free of Injury or Harm Cooperates with Safety Measures for Least Restrictive Environment Prevent Falls/ Injury Equipment Needed Outcome/Goals Met Comment PA in place Skin- Improve/Maintain Start: 07/16/16 02:28 Freq: QSHIFT Status: Active Target: Activity Type Activity Date Activity User E-Sign Co-Sign Detail Recorded Client Recorded Date Recorded By Document 07/16/16 02:29 [id number] [email or web address] 07/16/16 02:30 [id number] 07/16/16 02:29 PMRU Outcome: Skin Skin Risk Level Medium Skin Orders Air Mattress Turn/Position q2hr While in Bed Outcome/Goals Maintain/ Improve Skin Intergrity Medicine Note: Length of Stay: 14 days Anticipated Discharge Destination: Tentative Discharge Date: 07/30/16 Discharged to: Home
[2016-07-16] MEDS: Atorvastatin* 20 MG TAB PO SCH (21:41)
[2016-07-17] MEDS: Insulin LISPRO* 1 UNITS UNIT SUBCUT SCH ×8 (08:01→22:20)
[2016-07-17] MEDS: Venlafaxine EXT RELEASE CAP* 37.5 MG PO SCH (08:49)
[2016-07-17] MEDS: Aspirin EC Low Dose* 81 MG TAB.EC PO SCH (08:49)
[2016-07-17] MEDS: Clopidogrel TAB* 75 MG PO SCH (08:49)
[2016-07-17] MEDS: Docusate CAP* 100 MG PO SCH ×2 (08:49→21:39)
[2016-07-17] MEDS: Hydrochlorothiazide TAB* 25 MG PO SCH (08:49)
[2016-07-17] MEDS: Methylphenidate TAB* 5 MG PO SCH ×2 (08:49→17:34)
[2016-07-17] MEDS: ceFUROXime TAB(*) 250 MG PO SCH ×2 (08:49→21:39)
[2016-07-17] MEDS: Insulin GLARGINE(*) 1 UNITS UNIT SUBCUT SCH ×2 (08:55→21:41)
[2016-07-17] MEDS: Sertraline* 25 MG TAB PO SCH (08:57)
[2016-07-17] MEDS: guaiFENesin LIQ* 100 MG/5 ML UDC PO PRN ×2 (18:15→21:52)
[2016-07-17] MEDS: Atorvastatin* 20 MG TAB PO SCH (21:39)
[2016-07-18] MEDS: Clopidogrel TAB* 75 MG PO SCH (10:00)
[2016-07-18] MEDS: Methylphenidate TAB* 5 MG PO SCH ×2 (10:01→17:47)
[2016-07-18] MEDS: Docusate CAP* 100 MG PO SCH ×2 (10:01→21:40)
[2016-07-18] MEDS: Sertraline* 25 MG TAB PO SCH (10:01)
[2016-07-18] MEDS: ceFUROXime TAB(*) 250 MG PO SCH ×2 (10:01→21:32)
[2016-07-18] MEDS: Aspirin EC Low Dose* 81 MG TAB.EC PO SCH (10:01)
[2016-07-18] MEDS: Hydrochlorothiazide TAB* 25 MG PO SCH (10:01)
[2016-07-18] MEDS: Venlafaxine EXT RELEASE CAP* 37.5 MG PO SCH (10:01)
[2016-07-18] MEDS: Insulin LISPRO* 1 UNITS UNIT SUBCUT SCH ×8 (10:02→21:40)
[2016-07-18] MEDS: Insulin GLARGINE(*) 1 UNITS UNIT SUBCUT SCH ×2 (10:02→21:34)
[2016-07-18] MEDS: Atorvastatin* 20 MG TAB PO SCH (21:33)
[2016-07-18] MEDS: guaiFENesin LIQ* 100 MG/5 ML UDC PO PRN (21:36)
[2016-07-19] MEDS: Insulin GLARGINE(*) 1 UNITS UNIT SUBCUT SCH ×2 (07:44→21:48)
[2016-07-19] MEDS: Sertraline* 25 MG TAB PO SCH (07:45)
[2016-07-19] MEDS: Methylphenidate TAB* 5 MG PO SCH ×2 (07:45→17:45)
[2016-07-19] MEDS: Clopidogrel TAB* 75 MG PO SCH (07:45)
[2016-07-19] MEDS: Venlafaxine EXT RELEASE CAP* 37.5 MG PO SCH (07:45)
[2016-07-19] MEDS: ceFUROXime TAB(*) 250 MG PO SCH ×2 (07:45→21:49)
[2016-07-19] MEDS: Aspirin EC Low Dose* 81 MG TAB.EC PO SCH (07:45)
[2016-07-19] MEDS: Docusate CAP* 100 MG PO SCH ×2 (07:45→21:49)
[2016-07-19] MEDS: Insulin LISPRO* 1 UNITS UNIT SUBCUT SCH ×8 (08:58→21:41)
[2016-07-19] MEDS: Hydrochlorothiazide TAB* 25 MG PO SCH (08:59)
[2016-07-19] MEDS: Atorvastatin* 20 MG TAB PO SCH (21:49)
[2016-07-20] MEDS: Clopidogrel TAB* 75 MG PO SCH (10:20)
[2016-07-20] MEDS: Docusate CAP* 100 MG PO SCH ×2 (10:20→21:00)
[2016-07-20] MEDS: Aspirin EC Low Dose* 81 MG TAB.EC PO SCH (10:20)
[2016-07-20] MEDS: Methylphenidate TAB* 5 MG PO SCH ×2 (10:20→16:51)
[2016-07-20] MEDS: Insulin LISPRO* 1 UNITS UNIT SUBCUT SCH ×9 (10:21→21:54)
[2016-07-20] MEDS: Insulin GLARGINE(*) 1 UNITS UNIT SUBCUT SCH ×2 (10:30→21:02)
[2016-07-20] MEDS: Venlafaxine EXT RELEASE CAP* 37.5 MG PO SCH (10:33)
[2016-07-20] MEDS: Hydrochlorothiazide TAB* 25 MG PO SCH (10:33)
[2016-07-20] MEDS: Sertraline* 25 MG TAB PO SCH (10:34)
[2016-07-20] MEDS: ceFUROXime TAB(*) 250 MG PO SCH ×2 (10:34→21:00)
--- NOTE | 2016-07-20 12:58 | PMRUTEAM ---
PMRU: Goals Current Status: Nursing: Current Status Skin Deviations [none] Other Skin Deviations [Buttocks] Other Skin Deviation Description [ none none] Skin Deviation Description [ NOT NOTED Buttocks] Physical Therapy: Current Status Bed Mobility Assistance Supervision Transfer Moblility Assistance Supervision Transfer/Bed Mobility None,Rolling Walker Recommended Devices Ambulation Assistance Supervision Ambulation Assistive Devices None,Rolling Walker Number of Feet Patient 150,150, 200, 150 Ambulated Stairs Assistance Supervision Stairs Recommended Devices Two Rails Number of Stairs 2x5 Curb Not Tested Occupational Therapy: Current Status Upper Body Dressing Supervision Lower Body Dressing Contact Guard Assist Bathing Min Assist Toileting Contact Guard Assist Toilet Transfer Contact Guard Assist Shower Transfer Contact Guard Assist Eating Independent Rec Therapy: Current Status Summary of Assessment and RT assessment complete and pt. is aware of Clinical Impression services. Pt. has been engaged in leisure visits. Treatment Goals Pt. will engage in leisure activities while on the unit. Treatment Plan Provide RT services an encourage involvement. Social Work: Current Status Discharge Plan return home with home care svs and family support Potential for Family Training TBD Anticipated Discharge Home Destination Discharge With home care svs and family support Nutrition: Current Status Monitoring hx DM1 and recent DKA d/t insulin pump malfunction . FS now much improved; 199 this a.m. A1c 7.7% in June. PO intake is good; eating 90-100%. He accepts the mech soft textures and enjoys a regular diet (no red meat). Somewhat hyponatremic (128-130), K wnl (4.3). Daily BMs. Skin is intact. Appears to be meeting goals as outlined below. Speech: Current Status Assessment The patient was unable to recall memory strategies from previous date. The patient was reeducated on memory strategies and demonstrated understanding. The patient demonstrated deficits with functional time management tasks. Recommend continued skilled RADIO OPERATOR services for cognitive-linguistic treatment for improved safety , function and independence for daily living tasks . Goals: Physical Therapy: Initial Goals Bed Mobility Assistance Independent Transfer Mobility Assistance Independent Transfer/Bed Mobility None Recommended Devices Ambulation Independent Ambulation Recommended Devices None,Rolling Walker Ambulation Distance 150 Stairs Assistance Independent Stair Recommended Devices Two Rails Number of Stairs 12x2 Physical Therapy: Updated Goals Bed Mobility Assistance Independent Transfer Mobility Assistance Independent Transfer/Bed Mobility Rolling Walker Recommended Devices Ambulation Assistance Independent Ambulation Assistive Devices Rolling Walker Ambulation Distance (ft) 150 Stairs Assistance Independent Stairs Recommended Devices Two Rails Number of Stairs 12 Occupational Therapy: Initial Goals Goals to be Completed in (Days 10-14 ) Upper Body Bathing Routine Independent Lower Body Bathing Routine Modified Independent with Upper Body Dressing Routine Independent Lower Body Dressing Routine Modified Independent with Toilet Hygeine and Clothing Modified Independent with Management Routine Toilet Transfer Routine Modified Independent with Step-In Shower Transfer Modified Independent with Routine Tub Transfer Routine Modified Independent with Functional Transfers for ADL Modified Independent with Grooming Routine Independent Feeding Routine Independent Nutrition: Goals Intervention Goals 1. Pt will tolerate least-restrictive diet texture without difficulty chewing 2. Intake will be adequate to maintain UBW 3. BG will be adequately controlled per inpt parameters 4. Pt will maintain regular bowel pattern 5. Skin will remain intact, no open areas Speech: Goals Speech Goal 1 Cognitive-linguistic Goal 1 Comments LTG: The patient will complete various functional cognitive-linguistic tasks with use of strategies at 90% accuracy for improved safety, function and independence for daily living tasks. Objective ongoing STGs: 1. The patient will complete various functional short term memory tasks with use of strategies at 80% accuracy. 2. The patient will state and demonstrate use of memory strategies over 2 sessions. Status: Ongoing - The patient was unable to recall memory strategies. The patient was reeducated on and provided with written memory strategies and functional implementation of each strategy for which he stated understanding and agreement. 3. The patient will state viable solutions to functional problem solving scenarios at 90% accuracy. 4. The patient will be oriented to date with use of calendar or other orientation strategies over 2 sessions. Status: The patient was provided with monthly calendar to assist with orientation to date, for which he demonstrated understanding. The patient was educated on additional orientation strategies (i.e. white board, newspaper, meal ticket) for which he demonstrated understanding and agreement. 5. The patient will complete further assessment and update POC as warranted for functional money, time and medication mangement. Status: Ongoing - The patient completed functional time management tasks at 40% accuracy, improving to 83% given moderate cues and repetition. Continue assessment. Social Work: Goals Discharge Plan return home with home care svs and family support Potential for Family Training TBD Anticipated Discharge Home Destination Discharge With home care svs and family support Care Plan: Care Plan ADL's - Improve/Maintain Start: 07/16/16 02:28 Freq: DAILY Status: Active Target: Activity Type Activity Date Activity User E-Sign Co-Sign Detail Recorded Client Recorded Date Recorded By Document 07/19/16 11:26 [id number] 07/19/16 11:26 [id number] 07/19/16 11:26 PMRU Outcome: ADL's/ADL Transfers Orders/Interventions Occupational Therapy Evaluation & Treatment Communication Tool in Patient Room Device Yes Patient to receive OT 5x/wk for 60-120 Therex min/day Self Care Management Group Therapy UE/LE ADL's with Assist Yes: Rojelio ADL Transfers with Assist Yes: Rojelio Toileting: Transfers,Clothing Management Yes: Rojelio ,Hygeine w/Assist Progression Toward Outcome/Goals Progressing Outcome/Goals Met Pt progressing towards goals and shows increased safety awareness during showering. Communication-Improve/Maintain Start: 07/16/16 02:28 Freq: DAILY Status: Active Target: Activity Type Activity Date Activity User E-Sign Co-Sign Detail Recorded Client Recorded Date Recorded By Document 07/20/16 09:55 [id number] 07/20/16 09:56 [id number] 07/20/16 09:55 PMRU Outcome: Communication/Cognitive Status Outcome/Goals Makes Needs Known Effectively Other Outcomes/Goals The patient will complete functional cognitive- linguistic tasks with use of strategies at 90% accuracy . Outcome/Goals Met Comment The patient did not recall memory strategies and was reeducated on and demonstrated understanding of memory strategies. The patient completed functional time management tasks with increased accuracy improving to 83 % accuracy with moderate cues. Coping/Psych-Improve/Maintain Start: 07/16/16 02:28 Freq: DAILY Status: Active Target: Activity Type Activity Date Activity User E-Sign Co-Sign Detail Recorded Client Recorded Date Recorded By Document 07/20/16 03:52 [id number] 07/20/16 03:53 [id number] 07/20/16 03:52 PMRU Outcome: Coping/Psychosocial Coping Outcome/Goals Verbalization of Acceptance of Rehab Admit Verbalization of Sense of Control Over Health Status Utilization of Appropriate Problem Solving Techniques Willingness to Participate in Treatment Plan and Basic Needs Utilization of Available Support Systems Psychosocial Outcome/Goals Maintain/ Improve Emotional Health Cooperate/ Participate in Plan Progression Toward Outcome/Goals - Progressing Coping Progression Toward Outcome/Goals - Progressing Psychosocial DVT Prophylaxis- Improve/Maintain Start: 07/16/16 02:28 Freq: DAILY Status: Active Target: Activity Type Activity Date Activity User E-Sign Co-Sign Detail Recorded Client Recorded Date Recorded By Document 07/20/16 03:52 [id number] 07/20/16 03:53 [id number] 07/20/16 03:52 PMRU Outcome: DVT Prophylaxis Outcome/Goals Remains Free of DVT Complies with DVT Prophylaxis /Treatment Demonstrates Knowledge of DVT Prevention/ Treatment TEDS Stockings on Every AM, Off at HS Progression Toward Outcome/Goals Progressing Discharge Planning - Improve/Maintain Start: 07/16/16 02:28 Freq: DAILY Status: Active Target: Activity Type Activity Date Activity User E-Sign Co-Sign Detail Recorded Client Recorded Date Recorded By Document 07/20/16 03:51 [id number] 07/20/16 03:52 [id number] 07/20/16 03:51 PMRU Outcome: Discharge Planning Update Patient Family No Outcome/Goals Demonstrates Understanding of Discharge Plan Progression Toward Outcome/Goals Progressing Education-Improve/Maintain Start: 07/16/16 02:28 Freq: DAILY Status: Active Target: Activity Type Activity Date Activity User E-Sign Co-Sign Detail Recorded Client Recorded Date Recorded By Document 07/20/16 03:52 [id number] 07/20/16 03:53 [id number] 07/20/16 03:52 PMRU Outcome: Education Outcome/Goals Demonstrate/ Verbalize Understanding of Written Discharge Instructions Demonstrates Skills Encourage Questions Progression Toward Outcome/Goals Progressing Metabolic Status- Improve/Maintain Start: 07/16/16 02:28 Freq: DAILY Status: Active Target: Activity Type Activity Date Activity User E-Sign Co-Sign Detail Recorded Client Recorded Date Recorded By Document 07/20/16 03:52 [id number] [id number] 07/20/16 03:53 [id number] 07/20/16 03:52 PMRU Outcome: Metabolic Status Have Fingersticks Been Ordered Yes Fingerstick Order Frequency AC & HS Outcome/Goals Maintain/ Improve Metabolic Status Demonstrate Knowledge of Prevention/ Treatment of Metabolic Imbalances Progression Toward Outcome/Goals Progressing Mobility- Improve/Maintain Start: 07/15/16 18:35 Freq: DAILY Status: Active Target: Activity Type Activity Date Activity User E-Sign Co-Sign Detail Recorded Client Recorded Date Recorded By Document 07/16/16 12:23 [id number] 07/16/16 12:24 [id number] 07/16/16 12:23 PMRU Outcome: Mobility Physical Therapy Evaluation and Yes Treatment Activity OOB with Assistance Yes Device Yes Assistance Yes Patient to be seen 5x/wk for 60-120 min/ Therex day for: Mobility Training W/C Mobility Balance Outcome/Goals Maintain/ Achieve Baseline Mobility Status Improve Mobility Status Demonstrates Proper Use of Assistive Devices Free from Complications of Immobility Progression Toward Outcome/Goals Progressing Bed Mobility Yes: independent Transfers Yes: independent Gait x ft Yes: independent 150 ' W/C Mobility x ft Yes Up/Down Stairs Yes: independent up/ down 2 flights of stairs. Neurological- Improve/Maintain Start: 07/16/16 02:28 Freq: DAILY Status: Active Target: Activity Type Activity Date Activity User E-Sign Co-Sign Detail Recorded Client Recorded Date Recorded By Document 07/20/16 03:52 [id number] 07/20/16 03:53 [id number] 07/20/16 03:52 PMRU Outcome: Neurological Weakness/Aphasia Weakness Outcome/Goals Maintain/ Achieve Baseline Neurological Status Maintain/ Improve Strength/ROM Progression Toward Outcome/Goals Progressing Pain/Comfort- Improve/Maintain Start: 07/16/16 02:28 Freq: DAILY Status: Active Target: Activity Type Activity Date Activity User E-Sign Co-Sign Detail Recorded Client Recorded Date Recorded By Document 07/20/16 03:52 [id number] 07/20/16 03:53 [id number] 07/20/16 03:52 PMRU Outcome: Pain/Comfort Outcome/Goals Demonstrates Knowledge and Use of Available Comfort Measures Achieves Acceptable Comfort/Pain Level as Determined by Patient/Condit Maintain Comfort Level Allowing Patient to Fully Participate in Rehab Progression Toward Outcome/Goals Progressing Outcome/Goals Met Achieves Acceptable Comfort/Pain Level as Determined by Patient/Condit Safety- Improve/Maintain Start: 07/16/16 02:28 Freq: DAILY Status: Active Target: Activity Type Activity Date Activity User E-Sign Co-Sign Detail Recorded Client Recorded Date Recorded By Document 07/20/16 03:52 [id number] 07/20/16 03:53 [id number] 07/20/16 03:52 PMRU Outcome: Safety Outcome/Goals Remain Free of Injury or Harm Cooperates with Safety Measures for Least Restrictive Environment Prevent Falls/ Injury Equipment Needed Progression Toward Outcome/Goals Progressing Outcome/Goals Met Comment PA in place Skin- Improve/Maintain Start: 07/16/16 02:28 Freq: DAILY Status: Active Target: Activity Type Activity Date Activity User E-Sign Co-Sign Detail Recorded Client Recorded Date Recorded By Document 07/20/16 03:52 [id number] 07/20/16 03:53 [id number] 07/20/16 03:52 PMRU Outcome: Skin Skin Risk Level Medium Skin Orders Air Mattress Turn/Position q2hr While in Bed Dressing Change Comments PT TURNS/ POSITIONS ON HIS OWN Outcome/Goals Maintain/ Improve Skin Intergrity Progression Toward Outcome/Goals Progressing Medicine Note: Length of Stay: 1 week Anticipated Discharge Destination: Home Tentative Discharge Date: 07/27/16 Discharged to: home
[2016-07-20] MEDS: guaiFENesin LIQ* 100 MG/5 ML UDC PO PRN (18:00)
[2016-07-20] MEDS: Atorvastatin* 20 MG TAB PO SCH (21:00)
[2016-07-21] MEDS: Methylphenidate TAB* 5 MG PO SCH ×2 (08:29→18:01)
[2016-07-21] MEDS: Clopidogrel TAB* 75 MG PO SCH (08:29)
[2016-07-21] MEDS: Aspirin EC Low Dose* 81 MG TAB.EC PO SCH (08:29)
[2016-07-21] MEDS: Insulin GLARGINE(*) 1 UNITS UNIT SUBCUT SCH ×2 (08:29→21:02)
[2016-07-21] MEDS: Docusate CAP* 100 MG PO SCH ×2 (08:29→21:07)
[2016-07-21] MEDS: Insulin LISPRO* 1 UNITS UNIT SUBCUT SCH ×8 (08:30→21:08)
[2016-07-21] MEDS: ceFUROXime TAB(*) 250 MG PO SCH ×2 (08:30→21:01)
[2016-07-21] MEDS: Venlafaxine EXT RELEASE CAP* 37.5 MG PO SCH (08:30)
[2016-07-21] MEDS: Sertraline* 25 MG TAB PO SCH (08:30)
[2016-07-21] MEDS: Hydrochlorothiazide TAB* 25 MG PO SCH (08:30)
[2016-07-21] MEDS: Atorvastatin* 20 MG TAB PO SCH (21:06)
[2016-07-21] MEDS: Cetirizine* 10 MG TAB PO SCH (21:28)
[2016-07-22] MEDS: Docusate CAP* 100 MG PO SCH ×2 (08:14→21:24)
[2016-07-22] MEDS: ceFUROXime TAB(*) 250 MG PO SCH ×2 (08:14→22:09)
[2016-07-22] MEDS: Clopidogrel TAB* 75 MG PO SCH (08:14)
[2016-07-22] MEDS: Aspirin EC Low Dose* 81 MG TAB.EC PO SCH (08:14)
[2016-07-22] MEDS: Hydrochlorothiazide TAB* 25 MG PO SCH (08:14)
[2016-07-22] MEDS: Methylphenidate TAB* 5 MG PO SCH ×2 (08:14→17:39)
[2016-07-22] MEDS: Sertraline* 25 MG TAB PO SCH (08:14)
[2016-07-22] MEDS: Venlafaxine EXT RELEASE CAP* 37.5 MG PO SCH (08:15)
[2016-07-22] MEDS: Insulin GLARGINE(*) 1 UNITS UNIT SUBCUT SCH ×2 (08:18→21:26)
[2016-07-22] MEDS: Insulin LISPRO* 1 UNITS UNIT SUBCUT SCH ×8 (08:19→21:25)
[2016-07-22] MEDS: guaiFENesin LIQ* 100 MG/5 ML UDC PO PRN (08:20)
[2016-07-22] MEDS: Cetirizine* 10 MG TAB PO SCH (17:39)
[2016-07-22] MEDS: Atorvastatin* 20 MG TAB PO SCH (21:25)
[2016-07-23 05:35] VITALS: BP 121/55
[2016-07-23] MEDS: Sertraline* 25 MG TAB PO SCH (08:18)
[2016-07-23] MEDS: ceFUROXime TAB(*) 250 MG PO SCH (08:18)
[2016-07-23] MEDS: Methylphenidate TAB* 5 MG PO SCH (08:19)
[2016-07-23] MEDS: Docusate CAP* 100 MG PO SCH (08:19)
[2016-07-23] MEDS: Clopidogrel TAB* 75 MG PO SCH (08:19)
[2016-07-23] MEDS: Venlafaxine EXT RELEASE CAP* 37.5 MG PO SCH (08:19)
[2016-07-23] MEDS: Hydrochlorothiazide TAB* 25 MG PO SCH (08:19)
[2016-07-23] MEDS: Insulin LISPRO* 1 UNITS UNIT SUBCUT SCH ×4 (08:20→12:51)
[2016-07-23] MEDS: Insulin GLARGINE(*) 1 UNITS UNIT SUBCUT SCH (08:21)
[2016-07-23 08:31] LABS: Hematocrit 34 % (42-52); Hemoglobin 11.3 g/dl (14.0-18.0); Mean Corpuscular HGB Conc 34 g/dl (31-36); Mean Corpuscular Hemoglobin 29 pg (27-31); Mean Corpuscular Volume 86 fL (80-94); Mean Platelet Volume 7 um3 (7.4-10.4); Red Blood Count 3.91 10^6/ul (4.0-5.4); Red Cell Distribution Width 14 % (10.5-15); White Blood Count 7.4 10^3/ul (3.5-10.8)
[2016-07-23 08:53] LABS: BUN/Creatinine Ratio 29.1 (8-20); Calcium 8.3 mg/dL (8.6-10.3); EGFR African American 192.9 (>60); Globulin 2.2 g/dL (2-4); Potassium 4.2 mmol/L (3.5-5.0); Total Bilirubin 0.3 mg/dL (0.2-1.0); Total Protein 5.2 g/dL (6.4-8.9)
[2016-07-23] MEDS: Aspirin EC Low Dose* 81 MG TAB.EC PO SCH (09:25)
[2016-07-23] MEDS: guaiFENesin LIQ* 100 MG/5 ML UDC PO PRN (09:26)
--- NOTE | 2016-07-24 05:53 | DS ---
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 HISTORY OF PRESENT ILLNESS: For full details of his acute hospitalization leading up to his admission, please see the note dictated by Dr. Cox on 09/25. REHABILITATION COURSE: During his time on the PMRU, he continued using scheduled doses of Lantus which was at 14 units b.i.d. at the time of this dictation as well as sliding scale carb counting coverage for his diabetes. Doses had been recently decreased due to night hypoglycemia which was at 57 the night before discharge. On the day of discharge, he has an appointment set up with Dr. Chaudhary to consider restarting his insulin pump versus continuing with a long acting insulin. I spoke to Dr. Chaudhary and also advised of some ongoing memory issues that impact his ability to manage finances and possibly also his medication. He will be monitored closely and Dr. Chaudhary will determine what is the most appropriate insulin regimen for him. He completed treatment with Ceftin for aspiration pneumonia, which was present on admission. He continued to intermittently have coughing and used Mucinex as needed. He was able to wean off of oxygen during his stay. During his time on the PMRU, the proximal weakness that he initially presented with seemed to improve. He participated well with physical therapy and at the time of discharge was able to independently transfer and ambulate up to 150 feet using a rolling walker. He can do 20 stairs with one rail. With occupational therapy he independently dressed, bathe, and toilet using adaptive equipment. 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 DISCHARGE CONDITION: Good. DISCHARGE DISPOSITION: Home with family support. FOLLOWUP: A referral was sent to visiting nurse services for skilled home care including physical therapy, occupational therapy and speech therapy. He has an appointment with Dr. Chaudhary today at 2:20pm. DISCHARGE MEDICATIONS: 1. Aspirin 81 mg q. day. 2. Atorvastatin 20 mg q. p.m. 3. Cetirizine 10 mg q. p.m. 4. Plavix 75 mg q. day. 5. Hydrochlorothiazide 25 mg q. day. 6. Ritalin 5 mg b.i.d. 7. Sertraline 75 mg q. day. 8. Venlafaxine extended release 112.5 mg q. day. 9. Insulin regimen for diabetes to be determined today at an outpatient appointment with Dr. Chaudhary. DISCHARGE DIAGNOSES: 1. Type 1 diabetes mellitus, poorly controlled, status post diabetic ketoacidosis. 2. Coronary artery disease. 3. Chronic depression. 4. Hypertension. 5. Past cerebrovascular accident. 6. History of congestive heart failure. 7. Hypercholesterolemia. 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 [id number]/[facility] #: [id number] YEN
== END 2016-07-23 13:45 | disposition home health service (06) | DRG 420 ==
LOC: PMRU 15:20
PROVIDERS: ADMIT Physical Medicine & Rehabilitation; ATTEND Physical Medicine & Rehabilitation
PROC: F07Z5ZZ Bed Mobility Treatment (ICD-10-PCS; principal; 2016-07-15)
PROC: F07Z9ZZ Gait Training/Functional Ambulation Treatment (ICD-10-PCS; 2016-07-15)
PROC: F07Z8ZZ Transfer Training Treatment (ICD-10-PCS; 2016-07-15)
PROC: F08Z0ZZ Bathing/Showering Techniques Treatment (ICD-10-PCS; 2016-07-15)
PROC: F08Z1ZZ Dressing Techniques Treatment (ICD-10-PCS; 2016-07-15)
PROC: F08Z3ZZ Feeding/Eating Treatment (ICD-10-PCS; 2016-07-15)
DX: E13.10 Other specified diabetes mellitus with ketoacidosis without coma (principal); J69.0 Pneumonitis due to inhalation of food and vomit; I11.9 Hypertensive heart disease without heart failure; I50.9 Heart failure, unspecified; E11.44 Type 2 diabetes mellitus with diabetic amyotrophy; I25.10 Atherosclerotic heart disease of native coronary artery without angina pectoris; E78.00 Pure hypercholesterolemia, unspecified; F32.9 Major depressive disorder, single episode, unspecified; Z96.41 Presence of insulin pump (external) (internal); Z79.4 Long term (current) use of insulin; Z79.82 Long term (current) use of aspirin; Z79.02 Long term (current) use of antithrombotics/antiplatelets; Z79.899 Other long term (current) drug therapy; Z88.8 Allergy status to other drugs, medicaments and biological substances; Z91.040 Latex allergy status; Z86.73 Personal history of transient ischemic attack (TIA), and cerebral infarction without residual deficits
CPT/HCPCS: 36415; 80053; 85025; 94760; A9270-GY

== ENCOUNTER 2018-05-16 05:35 | Emergency (ER) | payer BC, MEDICARE, OTHER ==
[2018-05-16] MEDS ORDERED: NS 0.9% 1000 ML** 1,000 ML IV ONE ×2 (06:35→08:28)
--- NOTE | 2018-05-16 06:45 | ED ---
Seizure - HPI Summary HPI Summary: Patient is a 68-year-old male with hx of type I diabetes presenting to the ed by ambulance with report of a convulsive episode during the night by the patient 's . The patient states that he does not remember the convulsive episode, but was slow and confused at the time of EMS arrival. EMS reported to nursing staff administered 2 doses of IM glucagon and a blood sugar 138 on arrival , it is unknown the patient's blood sugar level prior to glucagon administration. Patient remembers waking up during the night and drinking approximately 100 calories of juice due to feeling of low blood sugar - shaky, tired. He has an insulin pump, and takes 5-7U of insulin at mealtime. He reports administering 5U at 18:00 or 19:00 last night, but does not recall what he had to eat. Patient notes he has had frequent episodes of hypoglyceminc seizures in the past, once every 6-9 months. Admits to feelings of confusion and difficulty understanding direction. Denies pain, headache, dizziness, incontinence. Denies any other chronic medical conditions. - History Of Current Complaint Chief Complaint: EDSeizure Time Seen by Provider: 05/16/18 05:57 Hx Obtained From: Patient, EMS Onset/Duration: Sudden Onset, Lasting Minutes Alleviating Factor(s): Other - glucagon administration - Allergies/Home Medications Allergies/Adverse Reactions: Allergies Allergy/AdvReac Type Severity Reaction Status Date / Time MS Latex [Latex] Allergy RASH, Verified 07/05/16 22:20 IRRITATION MS Meperidine AdvReac NIGHTMARES, Verified 07/05/16 22:20 [From Demerol HCl] CHILLS, SWEATS PMH/Surg Hx/FS Hx/Imm Hx Previously Healthy: Yes Endocrine/Hematology History: Reports: Hx Diabetes Denies: Hx Anticoagulant Therapy - Plavix., Hx Thyroid Disease, Hx Anemia Cardiovascular History: Reports: Hx Angina, Hx Coronary Artery Disease, Hx Hypercholesterolemia, Hx Hypertension, Hx Myocardial Infarction, Other Cardiovascular Problems/Disorders - DIABETIC Denies: Hx Congestive Heart Failure, Hx Deep Vein Thrombosis, Hx Pacemaker/ ICD Respiratory History: Reports: Hx Seasonal Allergies Denies: Hx Asthma, Hx Chronic Obstructive Pulmonary Disease (COPD), Hx Lung Cancer, Hx Pneumonia, Hx Pulmonary Embolism GI History: Denies: Hx Gall Bladder Disease, Hx Gastrointestinal Bleed, Hx Jaundice, Hx Ulcer, Hx Urosepsis History: Denies: Hx Kidney Stones, Hx Renal Disease Musculoskeletal History: Reports: Other Musculoskeletal History - MENISCAL TEAR LEFT KN EE Sensory History: Reports: Hx Cataracts, Hx Contacts or Glasses, Hx Vision Problem - vision getting poorer d/t diabetes Denies: Hx Hearing Aid, Other Sensory Impairments Opthamlomology History: Reports: Hx Cataracts, Hx Contacts or Glasses, Hx Vision Problem - vision getting poorer d/t diabetes Denies: Other Sensory Impairments Neurological History: Reports: Other Neuro Impairments/Disorders - TAKING RITALIN TO STAY FOCUS Denies: Hx Dementia, Hx Migraine, Hx Seizures, Hx Transient Ischemic Attacks (TIA) Psychiatric History: Reports: Hx Anxiety, Hx Depression Denies: Hx Panic Disorder, Hx Schizophrenia, Hx Bipolar Disorder - Surgical History Surgery Procedure, Year, and Place: 2009 LEFT KNEE ARTHROSCOPY-[facility] TRIGGER FINGER RELEASE/2006 CATARACT REPAIR,[facility] APPENDECTOMY, BYPASS SURGERY 30 YEARS AGO [place]. BILATERAL CARPAL TUNNEL SURGERY, [facility]. 2009 LEFT KNEE ARTHROSCOPY, [facility]. 2010 LEFT EYE VITRECTOMY, [place] Hx Anesthesia Reactions: No Infectious Disease History: Unable to Obtain/Confirm Infectious Disease History: Reports: Hx Shingles - treated Denies: Hx Hepatitis, Hx Human Immunodeficiency Virus (HIV), Traveled Outside the [place] in Last 30 Days - Family History Known Family History: Positive: Cardiac Disease, Hypertension - Social History Alcohol Use: None Substance Use Type: Reports: None Hx Tobacco Use: Yes Smoking Status (MU): Former Smoker Type: Cigarettes Have You Smoked in the Last Year: No Review of Systems Positive: Fatigue. Negative: Fever, Chills Negative: Photophobia, Blurred Vision, Diplopia Negative: Epistaxis, Dental Pain Negative: Chest Pain Negative: Shortness Of Breath Negative: Abdominal Pain, Vomiting, Diarrhea, Nausea Negative: incontinence Negative: Arthralgia, Myalgia Positive: Weakness. Negative: Headache, Paresthesia All Other Systems Reviewed And Are Negative: Yes Physical Exam Triage Information Reviewed: Yes Vital Signs On Initial Exam: Initial Vitals Temp Pulse Resp BP Pulse Ox 98.4 F 75 18 134/63 96 05/16/18 05:39 05/16/18 05:39 05/16/18 05:39 05/16/18 05:39 05/16/18 05:39 Vital Signs Reviewed: Yes Appearance: Positive: Well-Appearing, No Pain Distress, Well-Nourished Skin: Positive: Warm, Dry Head/Face: Positive: Normal Head/Face Inspection Eyes: Positive: EOMI, QUINTIN ENT: Positive: Hearing grossly normal, Pharynx normal, Other - dry mucus membranes, lower lip abrasion. Negative: Pharyngeal erythema, Nasal congestion , Nasal drainage Neck: Positive: Supple, Nontender, No Lymphadenopathy Respiratory/Lung Sounds: Positive: Clear to Auscultation, Breath Sounds Present Cardiovascular: Positive: Normal, RRR. Negative: Murmur Abdomen Description: Positive: Nontender, No Organomegaly, Soft Bowel Sounds: Positive: Present Musculoskeletal: Positive: Normal, Strength/ROM Intact Neurological: Positive: Normal, Sensory/Motor Intact, Alert, Oriented to Person Place, Time, CN Intact II-III, Heel to Toe, Finger to Nose, Facial Symmetry, Other - Mild confusion, slow to follow directions. Negative: Speech Normal - slow speech, Pronator Drift Present Psychiatric: Positive: Normal, Affect/Mood Appropriate Diagnostics - Vital Signs Vital Signs Temp Pulse Resp BP Pulse Ox 05/16/18 05:39 98.4 F 75 18 134/63 96 - Laboratory Result Diagrams: 05/16/18 06:35 05/16/18 06:35 Lab Statement: Any lab studies that have been ordered have been reviewed, and results considered in the medical decision making process. Course/Dx - Course Course Of Treatment: Patient's evaluated for hypoglycemic episode just prior to arrival. Patient appears to be post ictal, however denies any symptoms including headache or pain otherwise. He wears an insulin pump and this was shut off during episode. He states this happened to him several times in the past, and he only comes to the hospital every now and then for this. States after the episode he was given glucagon and felt improved. He was more responsive to the EMS as they were transporting to the hospital. Labs obtained which show a glucose level of 122. Patient is answering questions and responding appropriately. Lactic acid is 3.7. He is given 2 L normal saline. UA negative. Discussed treatment options with patient. Patient states he feels comfortable going home at this time as he is feeling improved. He will check his sugars often throughout the day and tailor his insulin regimen accordingly. Patient states he feels comfortable doing this at home. - Diagnoses Differential Diagnosis/HQI/PQRI: Positive: Metabolic Disorder Provider Diagnoses: Hypoglycemia, Seizure Discharge - Sign-Out/Discharge Documenting (check all that apply): Patient Departure Patient Received Moderate/Deep Sedation with Procedure: No - Discharge Plan Condition: Stable Disposition: HOME Patient Education Materials: Hypoglycemia in a Person with Diabetes (ED) Referrals: Jason Chaudhary MD [Primary Care Provider] - Additional Instructions: Please see her PCP in 2-3 days Remain on your at home medications as prescribed - Billing Disposition and Condition Condition: STABLE Disposition: Home
[2018-05-16 06:46] LABS: ABS Basophils 0.1 10^3/ul (0-0.2); ABS Eosinophils 0.1 10^3/ul (0-0.6); ABS Lymphocytes 0.9 10^3/ul (1.0-4.8); ABS Monocytes 0.6 10^3/ul (0-0.8); ABS Neutrophils 12.9 10^3/ul (1.5-7.7); ABS Nucleated RBC 0 10^3/ul; Eosinophil % 0.4 %; Hematocrit 38 % (42-52); Hemoglobin 12.5 g/dl (14.0-18.0); Lymphocyte % 6.2 %; Mean Corpuscular HGB Conc 33 g/dl (31-36); Mean Corpuscular Hemoglobin 28 pg (27-31); Mean Corpuscular Volume 85 fL (80-94); Nucleated Red Blood Cells % 0; Platelet Count 190 10^3/ul (150-450); Red Blood Count 4.49 10^6/ul (4.00-5.40); Red Cell Distribution Width 14 % (10.5-15); White Blood Count 14.5 10^3/ul (3.5-10.8)
[2018-05-16 07:16] LABS: ALT 16 U/L (7-52); AST 13 U/L (13-39); Albumin/Globulin Ratio 2.1 (1-3); Alkaline Phosphatase 77 U/L (34-104); Anion Gap 10 mmol/L (2-11); BUN/Creatinine Ratio 23.3 (8-20); Blood Urea Nitrogen 20 mg/dL (6-24); C Reactive Protein < 1.00 mg/L (<8.01); CO2 Carbon Dioxide 26 mmol/L (22-32); Calcium 9.2 mg/dL (8.6-10.3); Chloride 101 mmol/L (101-111); EGFR African American 107.7 (>60); Globulin 1.9 g/dL (2-4); Glucose 122 mg/dL (70-100); Magnesium 2.4 mg/dL (1.9-2.7); Potassium 3.4 mmol/L (3.5-5.0); Sodium 137 mmol/L (135-145); Total Protein 5.9 g/dL (6.4-8.9); Troponin I 0.01 ng/mL (<0.04)
[2018-05-16 09:44] LABS: Urine Appearance Cloudy; Urine Bilirubin Negative (Negative); Urine Blood Negative (Negative); Urine Color Yellow; Urine Glucose Negative (Negative); Urine Ketones Negative (Negative); Urine Nitrite Negative (Negative); Urine Protein Negative (Negative); Urine Specific Gravity 1.013 (1.010-1.030); Urine Urobilinogen Negative (Negative)
[2018-05-16 11:23] VITALS: BP 117/66
== END 2018-05-16 11:21 | disposition home or self-care (01) ==
LOC: ED 05:35
DX: E11.649 Type 2 diabetes mellitus with hypoglycemia without coma (principal); R56.9 Unspecified convulsions; I25.119 Atherosclerotic heart disease of native coronary artery with unspecified angina pectoris; I10 Essential (primary) hypertension; Z79.01 Long term (current) use of anticoagulants; Z95.1 Presence of aortocoronary bypass graft; Z88.5 Allergy status to narcotic agent; Z91.040 Latex allergy status; Z87.891 Personal history of nicotine dependence
CPT/HCPCS: 36415; 71046; 80053; 81003; 82803; 83605; 83735; 84484; 85025; 86140; 96360; 99283

== ENCOUNTER 2018-10-06 23:20 | Emergency (ER) | payer MEDICARE, BC ==
[2018-10-06] MEDS ORDERED: NS 0.9% 1000 ML** 1,000 ML IV ONE ×2 (23:58→23:59)
--- NOTE | 2018-10-07 00:09 | ED ---
HPI Diabetic - HPI Summary HPI Summary: This pt is a 68 y/o male presenting to [facility] via EMS after passing out today. Pt has hx of diabetes with an insulin pump. He notes he was watching the news earlier on 10/06/18 when he got up to get something to eat. He notes he became generalized weak and lethargic and passed out for "a moment." Pt states he called the ambulance with his alarm prior to passing out. EMS found the pt on the floor and they report his fingerstick BG was 83. Pt currently reports feeling tired. Denies any pain. - History Of Current Complaint Chief Complaint: EDWeakness Time Seen by Provider: 10/06/18 23:37 Hx Obtained From: Patient, EMS Onset/Duration: Sudden Onset, Resolved Character: Lethargic - and weak Aggravating: Nothing Alleviating: Nothing Associated Signs & Symptoms: Negative Related History: Compliant, DM I, Insulin Pump - Allergies/Home Medications Allergies/Adverse Reactions: Allergies Allergy/AdvReac Type Severity Reaction Status Date / Time MS Latex [Latex] Allergy RASH, Verified 10/06/18 23:36 IRRITATION MS Meperidine AdvReac NIGHTMARES, Verified 10/06/18 23:36 [From Demerol HCl] CHILLS, SWEATS PMH/Surg Hx/FS Hx/Imm Hx Endocrine/Hematology History: Reports: Hx Diabetes Denies: Hx Anticoagulant Therapy - Plavix., Hx Thyroid Disease, Hx Anemia Cardiovascular History: Reports: Hx Angina, Hx Coronary Artery Disease, Hx Hypercholesterolemia, Hx Hypertension, Hx Myocardial Infarction, Other Cardiovascular Problems/Disorders - DIABETIC Denies: Hx Congestive Heart Failure, Hx Deep Vein Thrombosis, Hx Pacemaker/ ICD Respiratory History: Reports: Hx Seasonal Allergies Denies: Hx Asthma, Hx Chronic Obstructive Pulmonary Disease (COPD), Hx Lung Cancer, Hx Pneumonia, Hx Pulmonary Embolism GI History: Denies: Hx Gall Bladder Disease, Hx Gastrointestinal Bleed, Hx Jaundice, Hx Ulcer, Hx Urosepsis History: Denies: Hx Kidney Stones, Hx Renal Disease Musculoskeletal History: Reports: Other Musculoskeletal History - MENISCAL TEAR LEFT KN EE Sensory History: Reports: Hx Cataracts, Hx Contacts or Glasses, Hx Vision Problem - vision getting poorer d/t diabetes Denies: Hx Hearing Aid, Other Sensory Impairments Opthamlomology History: Reports: Hx Cataracts, Hx Contacts or Glasses, Hx Vision Problem - vision getting poorer d/t diabetes Denies: Other Sensory Impairments Neurological History: Reports: Other Neuro Impairments/Disorders - TAKING RITALIN TO STAY FOCUS Denies: Hx Dementia, Hx Migraine, Hx Seizures, Hx Transient Ischemic Attacks (TIA) Psychiatric History: Reports: Hx Anxiety, Hx Depression Denies: Hx Panic Disorder, Hx Schizophrenia, Hx Bipolar Disorder - Surgical History Surgery Procedure, Year, and Place: 2009 LEFT KNEE ARTHROSCOPY-[facility] TRIGGER FINGER RELEASE/2006 CATARACT REPAIR,[facility] APPENDECTOMY, BYPASS SURGERY 30 YEARS AGO [place]. BILATERAL CARPAL TUNNEL SURGERY, [facility]. 2009 LEFT KNEE ARTHROSCOPY, [facility]. 2010 LEFT EYE VITRECTOMY, [place] Hx Anesthesia Reactions: No Infectious Disease History: No Infectious Disease History: Reports: Hx Shingles - treated Denies: Hx Hepatitis, Hx Human Immunodeficiency Virus (HIV), Traveled Outside the [place] in Last 30 Days - Family History Known Family History: Positive: Cardiac Disease, Hypertension - Social History Alcohol Use: None Substance Use Type: Reports: None Hx Tobacco Use: Yes Smoking Status (MU): Former Smoker Type: Cigarettes Have You Smoked in the Last Year: No Review of Systems Positive: Fatigue. Negative: Fever Cardiovascular: Negative Respiratory: Negative Gastrointestinal: Negative Positive: Weakness - generalized and lethargy prior to syncope, Syncope All Other Systems Reviewed And Are Negative: Yes Physical Exam - Summary Physical Exam Summary: VITAL SIGNS: Reviewed. GENERAL: Patient is a well-developed and nourished male who is lying comfortable in the stretcher. Patient is not in any acute respiratory distress. HEAD AND FACE: No signs of trauma. No ecchymosis, hematomas or skull depressions. No sinus tenderness. EYES: PERRLA, EOMI x 2, No injected conjunctiva, no nystagmus. EARS: Hearing grossly intact. Ear canals and tympanic membranes are within normal limits. MOUTH: Oropharynx within normal limits. NECK: Supple, trachea is midline, no adenopathy, no JVD, no carotid bruit, no c- spine tenderness, neck with full ROM. CHEST: Symmetric, no tenderness at palpation LUNGS: Clear to auscultation bilaterally. No wheezing or crackles. CVS: Regular rate and rhythm, S1 and S2 present, no murmurs or gallops appreciated. ABDOMEN: Soft, non-tender. No signs of distention. No rebound no guarding, and no masses palpated. Bowel sounds are normal. EXTREMITIES: FROM in all major joints, no edema, no cyanosis or clubbing. NEURO: Alert and oriented x 3. No acute neurological deficits. Speech is normal and follows commands. SKIN: Dry and warm Triage Information Reviewed: Yes Vital Signs On Initial Exam: Initial Vitals Temp Pulse Resp BP Pulse Ox 97.6 F 72 16 97/47 96 10/06/18 23:26 10/06/18 23:26 10/06/18 23:26 10/06/18 23:26 10/06/18 23:26 Vital Signs Reviewed: Yes Diagnostics - Vital Signs Vital Signs Temp Pulse Resp BP Pulse Ox 10/06/18 23:31 71 96 10/06/18 23:29 67 97/47 96 10/06/18 23:26 97.6 F 72 16 97/47 96 - Laboratory Result Diagrams: 10/07/18 00:18 10/07/18 00:18 Lab Statement: Any lab studies that have been ordered have been reviewed, and results considered in the medical decision making process. - EKG 00:43 Cardiac Rate: NL - at 66 bpm EKG Rhythm: Sinus Rhythm Ectopy: PVCs Summary of EKG Findings: Normal axis. Normal interval. No ischemic changes Diabetic Course/Dx - Course Assessment/Plan: Pt is a 68 y/o male presenting to [facility] via EMS after passing out today. Pt has hx of diabetes with an insulin pump. He notes he was watching the news earlier on 10/06/18 when he got up to get something to eat. He notes he became generalized weak and lethargic and passed out for "a moment.". Lab results remarkable for hemoglobin of 11.7, hematocrit of 34, glucose of 278, lactic acid of 2.3. In the ED course the pt was given IV fluids. pt will be discharged home with follow up from his PCP on Tuesday. He was instructed to hold off Cardizem and monitor his blood pressure. He was given instructions to return to the ED for any worsening or new symptoms. - Diagnoses Provider Diagnoses: Weakness Discharge - Sign-Out/Discharge Documenting (check all that apply): Patient Departure - Discharge home Patient Received Moderate/Deep Sedation with Procedure: No - Discharge Plan Condition: Stable Disposition: HOME Patient Education Materials: Weakness (ED) Referrals: Jason Chaudhary MD [Primary Care Provider] - (follow up on Tuesday10/09/18.) Additional Instructions: Hold cardizem until you see your doctor. Monitor your blood pressure until you see your doctor. Please follow up with your primary care provider on 10/09/18. RETURN TO EMERGENCY DEPARTMENT FOR ANY NEW OR WORSENING SYMPTOMS. - Attestation Statements Document Initiated by Otilioibe: Yes Documenting Scribe: Dora Krause Provider For Whom Scribe is Documenting (Include Credential): Nancy Emery MD Scribe Attestation: I, Dora Krause, scribed for Nancy Emery MD on 10/07/18 at 0647. Status of Scribe Document: Ready
[2018-10-07 00:25] LABS: ABS Basophils 0.1 10^3/ul (0-0.2); ABS Lymphocytes 0.8 10^3/ul (1.0-4.8); ABS Monocytes 0.4 10^3/ul (0-0.8); ABS Neutrophils 6.9 10^3/ul (1.5-7.7); Eosinophil % 0.4 %; Hematocrit 34 % (42-52); Hemoglobin 11.7 g/dL (14.0-18.0); Lymphocyte % 9.6 %; Mean Corpuscular HGB Conc 34 g/dL (31-36); Mean Corpuscular Hemoglobin 29 pg (27-31); Mean Corpuscular Volume 85 fL (80-94); Mean Platelet Volume 8.1 fL (7.4-10.4); Platelet Count 185 10^3/uL (150-450); Red Blood Count 4.03 10^6 /uL (4.18-5.48); Red Cell Distribution Width 15 % (10-15); White Blood Count 8.3 10^3/uL (3.5-10.8)
[2018-10-07 00:42] LABS: Albumin 3.7 g/dL (3.2-5.2); Albumin/Globulin Ratio 1.9 (1-3); BUN/Creatinine Ratio 19.6 (8-20); Calcium 8.8 mg/dL (8.6-10.3); EGFR African American 93.7 (>60); EGFR Non-African American 77.4 (>60); Globulin 1.9 g/dL (2-4); Total Bilirubin 0.4 mg/dL (0.2-1.0); Total Protein 5.6 g/dL (6.4-8.9)
[2018-10-07 00:44] LABS: Troponin I 0.01 ng/mL (<0.04)
[2018-10-07 01:02] LABS: Potassium 4.2 mmol/L (3.5-5.0)
[2018-10-07 01:03] LABS: TSH (Thyroid Stimulating Horm) 2.56 mcIU/mL (0.34-5.60)
[2018-10-07 03:28] VITALS: BP 109/55
== END 2018-10-07 02:30 | disposition home or self-care (01) ==
LOC: ED 23:20
DX: R53.1 Weakness (principal); E11.9 Type 2 diabetes mellitus without complications; I25.10 Atherosclerotic heart disease of native coronary artery without angina pectoris; I10 Essential (primary) hypertension; Z87.891 Personal history of nicotine dependence
CPT/HCPCS: 36415; 80053; 83605; 83735; 84443; 84484; 85025; 93005; 96360; 99283

== ENCOUNTER 2019-03-16 14:51 | Emergency (ER) | payer MEDICARE, BC ==
--- OUTSIDE RECORDS SUMMARY | 2019-03-16 15:03 | XMS REPORT | Continuity of Care Document ---
:1950 External Reference #:[id number] Author Name Jennifer Aguirre NP (transmitted by agent of provider Mary Hernandez) Address [address] [place] [id number] Care Team Providers Name Role Phone Jason Chaudhary MD - Endocrinology, Care Team Information Dock Hand Diabetes & Metabolism Problems Active Problems Provider Date Electrocardiogram abnormal Matt Moore M.D. Onset: 01/24/2012 Coronary arteriosclerosis Matt Moore M.D. Onset: 01/24/2012 Chronic ischemic heart disease Matt Moore M.D. Onset: 01/24/2012 Old myocardial infarction Matt Moore M.D. Onset: 01/24/2012 Benign essential hypertension Matt Moore M.D. Onset: 01/24/2012 Hyperlipidemia Matt Moore M.D. Onset: 01/24/2012 Aortocoronary Bypass Postsurgical Matt Moore M.D. Onset: 2011 Status Malaise and fatigue Matt Moore M.D. Onset: 02/06/2014 History of coronary artery bypass Matt Moore M.D. Onset: 2015 grafting Essential hypertension Matt Moore M.D. Onset: 08/12/2015 Social History Type Date Description Comments Sex Unknown Tobacco Use Start: Unknown End: Former Cigarette Smoker smoked for 10 Unknown 1 Pack Daily years-quit 25 years ago ETOH Use Drinks Alcoholic Beverages Rarely Tobacco Use Start: Unknown End: Patient is a former quit smoking in the Unknown smoker late Recreational Drug Use Denies Drug Use Smoking Status Reviewed: 02/06/19 Patient is a former quit smoking in the smoker late Exercise Type/Frequency Exercises sporadically Allergies, Adverse Reactions, Alerts Active Allergies Reaction Severity Comments Date Demerol hallucinations 08/28/2008 Inactive Allergies NKDA 02/07/2008 Medications Active Medications SIG Qnty Indications Ordering Date Provider Hydrochlorothiazide 1 by mouth every 40tabs Qutaybeh S. 02/23/2019 25mg day Take an Maghaydah, Tablets additional 25 mg M.D. when foot/ankle more swollen than usual Donepezil HCL 1 every day 30tabs G31.84 Lexx S. 02/06/2019 5mg Tablets Geneva Lange Micardis 1 po qd Matt S. 08/28/2008 80mg Tablets Geneva Moore Insulin Pump humalog Unknown Kit Lipitor One Tab PO QHS Unknown 20mg Tablets Diltiazem CD 1 PO qd 30caps Unknown 240mg Caps ER 24HR Aspirin 1 PO qd 30units Unknown 81mg Chewtabs Plavix 1 PO qd Unknown 75mg Tablets Zyrtec Allergy 1 po qd 30caps Unknown 10mg Capsules Fluticasone Propionate 1 spray each 16gm Unknown nostril daily as 50mcg/Act Suspension needed Humalog per pump 1Bottle Unknown Suspension Sertraline HCL 2 po qd 30tabs Unknown 100mg Tablets Tramadol HCL prn 50tabs Unknown 50mg Tablets Methylphenidate HCL 1 by mouth four Unknown 20mg times a day Tablets along with 5mg tablet Methylphenidate HCL 1 tablet by Unknown 5mg Tablets mouth four times per day along with 20mg tablet Gabapentin 1 by mouth three Unknown 100mg Capsules times a day Immunizations Description No Information Available Vital Signs Date Vital Result Comment 02/06/2019 1:53pm Height 66 inches 5'6" Weight 143.00 lb Heart Rate 68 /min BP Systolic 132 mmHg BP Diastolic 56 mmHg BMI (Body Mass Index) 23.1 kg/m2 08/07/2018 3:10pm Height 66 inches 5'6" Weight 141.25 lb Clothes/shoes Heart Rate 64 /min Radial BP Systolic Standing 122 mmHg Lue reg cuff std BP Diastolic Standing 60 mmHg Lue reg cuff std BP Systolic Lying Down 122 mmHg Lue reg cuff sit BP Diastolic Lying Down 60 mmHg Lue reg cuff sit BMI (Body Mass Index) 22.8 kg/m2 Ejection Fraction 45-50% Echo 07/12/2016 Results Description No Information Available Procedures Date Code Description Status 10/18/2018 04767 ECHO Transthoracic, Real-Time 2D With Doppler And Completed Color Flow 10/18/2018 67071 ECHO Transthoracic, Real-Time 2D With Doppler And Completed Color Flow 09/24/2016 [id number] Diabetic Retinal Eye Exam Completed 05/24/2014 [id number] Diabetic Retinal Eye Exam Completed Medical Devices Description No Information Available Encounters Description No Information Available Assessments Date Code Description Provider 02/06/2019 E11.9 Type 2 diabetes mellitus without Lexx Lange M.D. complications 02/06/2019 G31.84 Mild cognitive impairment, so stated Lexx Lange M.D. 02/06/2019 G91.0 Communicating hydrocephalus Lexx Lange M.D. 10/18/2018 I25.10 Atherosclerotic heart disease of [place] Matt Moore M.D. coronary artery without angina pectoris 10/18/2018 I25.10 Atherosclerotic heart disease of [place] [facility] Schedule coronary artery with 10/18/2018 I10 Essential (primary) hypertension [place] [facility] Schedule 10/18/2018 R94.31 Abnormal electrocardiogram [ECG] [EKG] [place] [facility] 10/18/2018 I34.0 Nonrheumatic mitral (valve) [place] [facility] insufficiency 10/18/2018 I34.0 Nonrheumatic mitral (valve) Matt Moore M.D. insufficiency Plan of Treatment Future Appointment(s):02/26/2019 3:00 pm - Jennifer Aguirre NP at [facility]07/31/2019 2:45 pm - Lexx Lange M.D. at [facility]03/12/2019 1:40 pm - Matt Moore M.D. at [facility]02/06/2019 - Lexx Lange M.D.E11.9 Type 2 diabetes mellitus without iivngmpnfmhppK01.84 Mild cognitive impairment, so statedNew Medication:Donepezil HCL 5 mg - 1 every dayFollow up:6 [id number] Communicating hydrocephalusRecommendations:we can consider doing a spinal tap to see if it improves your memory and gait disorder Functional Status Description No Information Available Mental Status Description No Information Available Referrals Description No Information Available
--- OUTSIDE RECORDS SUMMARY | 2019-03-16 15:03 | XMS REPORT | Continuity of Care Document ---
:1950 External Reference #:[id number] Author Name Lexx Lange M.D. 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 08/28/2008 80mg Tablets Geneva Moore Hydrochlorothiazide 1/2 by mouth 90tabs Jastatricia S. 08/28/2008 50mg Tablets every morning Geneva Moore Insulin Pump humalog Unknown Kit Lipitor One Tab PO QHS Unknown 20mg Tablets Diltiazem CD 1 PO qd 30caps Unknown 240mg Caps ER 24HR Aspirin 1 PO qd 30units Unknown 81mg Chewtabs Plavix 1 PO qd Unknown 75mg Tablets Zyrtec Allergy 1 po qd 30caps Unknown 10mg Capsules Fluticasone Propionate 1 spray each 16gm Unknown 50mcg/Act nostril daily Suspension as needed Humalog per pump 1Bottle Unknown Suspension Sertraline HCL 2 po qd 30tabs Unknown 100mg Tablets Tramadol HCL prn 50tabs Unknown 50mg Tablets Methylphenidate HCL 1 by mouth Unknown 20mg Tablets four times a day along with 5mg tablet Methylphenidate HCL 1 tablet by Unknown 5mg Tablets mouth four times per day along with 20mg tablet Gabapentin 1 by mouth Unknown 100mg Capsules three times a day Immunizations Description No Information [...] Available Procedures Date Code Description Status 10/18/2018 58688 ECHO Transthoracic, Real-Time 2D With Doppler And Completed Color Flow 10/18/2018 59766 ECHO Transthoracic, Real-Time 2D With Doppler And Completed Color Flow 09/24/2016 [id number] Diabetic Retinal Eye Exam Completed 05/24/2014 [id number] Diabetic Retinal Eye Exam Completed Medical Devices Description No Information Available Encounters Description No Information Available Assessments Date Code Description Provider 02/06/2019 E11.9 Type 2 diabetes mellitus without Lexx Lange M.D. complications 02/06/2019 G31.84 Mild cognitive impairment, so stated Lexx Lange M.D. 02/06/2019 G91.0 Communicating hydrocephalus Lexx Lange M.D. 10/18/2018 I25.10 Atherosclerotic heart disease of [place] Matt Moore M.D. coronary artery without angina pectoris 10/18/2018 I25.10 Atherosclerotic heart disease of [facility] ECHO Schedule coronary artery with 10/18/2018 I10 Essential (primary) hypertension [place] [facility] Schedule 10/18/2018 R94.31 Abnormal electrocardiogram [ECG] [EKG] [place] [facility] Schedule 10/18/2018 I34.0 Nonrheumatic mitral (valve) [place] [facility] Schedule insufficiency 10/18/2018 I34.0 Nonrheumatic mitral (valve) Matt Moore M.D. insufficiency Plan of Treatment Future Appointment(s):07/31/2019 2:45 pm - Lexx Lange M.D. at [facility]03/12/2019 1:40 pm - Matt Moore M.D. at [place] [facility]62/29/2019 - Lexx Lange M.D.E11.9 Type 2 diabetes mellitus without ytrmkxddyhyhsK33.84 Mild cognitive impairment, so statedNew Medication:Donepezil HCL 5 mg - 1 every dayFollow up:6 ggpoqwP03.0 Communicating hydrocephalusRecommendations:we can consider doing a spinal tap to see if it improves your memory and gait disorder Functional Status Description No Information Available Mental Status Description No Information Available Referrals Description No Information Available
--- OUTSIDE RECORDS SUMMARY | 2019-03-16 15:03 | XMS REPORT | Continuity of Care Document ---
:1950 External Reference #:[id number] Author Name Jennifer Aguirre NP (transmitted by agent of provider Jolly Smyth) Address [address] [place] [address] Care Team Providers Name Role Phone Jason Chaudhary MD - Endocrinology, Care Team Information Buffer Inflated Pad Diabetes & Metabolism Problems Active Problems Provider [...] Use Denies Drug Use Smoking Status Reviewed: 03/02/19 Patient is a former quit smoking in the smoker late Exercise Type/Frequency Exercises sporadically Allergies, Adverse Reactions, Alerts Active Allergies Reaction Severity Comments Date Demerol hallucinations 08/28/2008 Inactive Allergies NKDA 02/07/2008 Medications Active Medications SIG Qnty Indications Ordering Date Provider Donepezil HCL 1 every day 30tabs G31.84 Lexx SPau 02/06/2019 5mg Tablets Geneva Lange Micardis 1 po qd Jastatricia S. 08/28/2008 80mg Tablets Geneva Moore Insulin Pump humalog Unknown Kit Lipitor One Tab PO QHS Unknown 20mg Tablets Aspirin 1 PO qd 30units Unknown 81mg Chewtabs Plavix 1 PO qd Unknown 75mg Tablets Zyrtec Allergy 1 po qd 30caps Unknown 10mg Capsules Fluticasone Propionate 1 spray each 16gm Unknown nostril daily 50mcg/Act Suspension as needed Humalog per pump 1Bottle Unknown Suspension Sertraline HCL 2 po qd 30tabs Unknown 100mg Tablets Tramadol HCL prn 50tabs Unknown 50mg Tablets Methylphenidate HCL 1 by mouth four Unknown 20mg times a day Tablets along with 5mg tablet Methylphenidate HCL 1 tablet by Unknown 5mg mouth four Tablets times per day along with 20mg tablet Gabapentin 1 by mouth Unknown 100mg Capsules three times a day History Medications Hydrochlorothiazide 1 by mouth every 40tabs Matt S. 02/23/2019 - 25mg Tablets day Take an Geneva Moore 03/02/2019 additional 25 mg when foot/ankle more swollen than usual Immunizations Description No Information Available Vital Signs Date Vital Result Comment 03/02/2019 3:29pm Height 66 inches 5'6" Weight 148.00 lb with shoes Heart Rate 74 /min BP Systolic Sitting 102 mmHg Lue reg cuff BP Diastolic Sitting 54 mmHg Lue reg cuff BP Systolic Standing 96 mmHg Lue reg cuff BP Diastolic Standing 56 mmHg Lue reg cuff BMI (Body Mass Index) 23.9 kg/m2 02/06/2019 1:53pm Height 66 inches 5'6" Weight 143.00 lb Heart Rate 68 /min BP Systolic 132 mmHg BP Diastolic 56 mmHg BMI (Body Mass Index) 23.1 kg/m2 Results Test Acquired Date Facility Test Result H/L Range Note Lipid Panel - 03/02/2019 [facility] Creatine <pending> [facility] [address] [employer] [place] [address] [phone] Procedures Date Code Description Status 03/02/2019 49226 EKG Tracing & Interpretation Completed 10/18/2018 93980 ECHO Transthoracic, Real-Time 2D With Doppler And Completed Color Flow 10/18/2018 03462 ECHO Transthoracic, Real-Time 2D With Doppler And Completed Color Flow 09/24/2016 [id number] Diabetic Retinal Eye Exam Completed 05/24/2014 [id number] Diabetic Retinal Eye Exam Completed Medical Devices Description No Information Available Encounters Description No Information Available Assessments Date Code Description Provider 03/02/2019 E11.9 Type 2 diabetes mellitus without Jennifer Aguirre NP complications 03/02/2019 I42.9 Cardiomyopathy, unspecified Jennifer Aguirre NP 03/02/2019 E78.5 Hyperlipidemia, unspecified Jennifer Aguirre NP 03/02/2019 I10 Essential (primary) hypertension Jennifer Aguirre NP 03/02/2019 I25.810 Atherosclerosis of coronary artery Jennifer Aguirre NP bypass graft(s) without angina pectoris 02/06/2019 E11.9 Type 2 diabetes mellitus without Lexx Lange M.D. complications 02/06/2019 G31.84 Mild cognitive impairment, so stated Lexx Lange M.D. 02/06/2019 G91.0 Communicating hydrocephalus Lexx Lange M.D. 10/18/2018 I25.10 Atherosclerotic heart disease of Matt Moore M.D. [place] coronary artery without angina pectoris 10/18/2018 I25.10 Atherosclerotic heart disease of [place] ECHO Schedule [place] coronary artery with 10/18/2018 I10 Essential (primary) hypertension [place] [facility] Schedule 10/18/2018 R94.31 Abnormal electrocardiogram [ECG] [EKG] [place] [facility] Schedule 10/18/2018 I34.0 Nonrheumatic mitral (valve) [place] [facility] insufficiency 10/18/2018 I34.0 Nonrheumatic mitral (valve) Matt Moore M.D. insufficiency Plan of Treatment Future Appointment(s):03/06/2019 11:30 am - Nurse Visit [facility] at [facility]07/31/2019 2:45 pm - Lexx Lange M.D. at [facility]03/12/2019 1:40 pm - Matt Moore M.D. at [facility]03/02/2019 - Jennifer Aguirre, NPE11.9 Type 2 diabetes mellitus without dxxwtwhkrodyjS06.9 Cardiomyopathy, zqmasefaejjC08.5 Hyperlipidemia, [id number] Essential (primary) hypertensionFollow up:follow up next week with RN For BP check off of HCTZ And Diltiazem. follow up with myself or Dr. Moore in 1 month.Recommendations:Stop hydrochlorothiazide and Diltiazem your blood pressure is lowI25.810 Atherosclerosis of coronary artery bypass graft(s) without angina pectoris Functional Status Description No Information Available Mental Status Description No Information Available Referrals Description No Information Available
[2019-03-16 15:18] VITALS: BP 133/58
--- NOTE | 2019-03-16 16:01 | UC ---
Respiratory Complaint HPI - HPI Summary HPI Summary: Mr. Molina presents with a couple days of congestion and cough. He's had some generalized aches and pains and his chronic off-balance condition seems to be worse to him. - History of Current Complaint Chief Complaint: UCRespiratory Stated Complaint: SORE THROAT Time Seen by Provider: 03/16/19 15:29 Hx Obtained From: Patient Onset/Duration: Gradual Onset Timing: Constant Severity Initially: Moderate Severity Currently: Moderate Pain Intensity: 0 Character: Cough: Productive Aggravating Factors: Nothing Alleviating Factors: Nothing Associated Signs And Symptoms: Positive: Nasal Congestion - Allergies/Home Medications Allergies/Adverse Reactions: Allergies Allergy/AdvReac Type Severity Reaction Status Date / Time latex Allergy Rash/IRRITA Verified 03/16/19 15:18 TION meperidine [From Demerol] Allergy NIGHTMARES/ Verified 03/16/19 15:18 CHILLS/SWEA TS Home Medications: Home Medications Telmisartan 80 mg PO DAILY 03/16/19 [History Confirmed 03/16/19] PMH/Surg Hx/FS Hx/Imm Hx Endocrine History: Diabetes - Insulin-dependent for over 40 years, Dyslipidemia Cardiovascular History: Hypertension, Congestive Heart Failure Respiratory History: Bronchitis, Pneumonia Other History Of: Negative For: HIV, Hepatitis B, Hepatitis C, Anticoagulant Therapy - Plavix. - Surgical History Surgical History: Yes Surgery Procedure, Year, and Place: 2009 LEFT KNEE ARTHROSCOPY-[facility]GER FINGER RELEASE/2006 CATARACT REPAIR,[facility] APPENDECTOM[facility], BYPASS SURGERY 30 YEARS AGO [facility]. BILATERAL CARPAL TUNNEL SURGERY, [facility]. 2009 LEFT KNEE ARTHROSCOPY, [facility]. 2010 LEFT EYE VITRECTOMY, [place]. LASER EYE SURGERY - Family History Known Family History: Positive: Cardiac Disease, Hypertension - Social History Alcohol Use: Occasionally Substance Use Type: None Smoking Status (MU): Former Smoker Type: Cigarettes Have You Smoked in the Last Year: No - Immunization History Most Recent Influenza Vaccination: 2017 Most Recent Pneumonia Vaccination: 2016 Review of Systems All Other Systems Reviewed And Are Negative: Yes Constitutional: Positive: Negative Skin: Positive: Negative ENT: Positive: Nasal Discharge Respiratory: Positive: Cough Cardiovascular: Positive: Negative Gastrointestinal: Positive: Negative Musculoskeletal: Positive: Negative Neurological: Positive: Negative Physical Exam - Summary Physical Exam Summary: He is nontoxic in appearance with stable vital signs. Triage Information Reviewed: Yes Appearance: Well-Appearing Vital Signs: Initial Vital Signs Temp 98.3 F 03/16/19 15:11 Pulse 67 03/16/19 15:11 Resp 16 03/16/19 15:11 BP 133/58 03/16/19 15:11 Pulse Ox 100 03/16/19 15:11 Vital Signs Reviewed: Yes ENT Exam: Normal Respiratory Exam: Normal Respiratory: Positive: Lungs clear, Normal breath sounds, No respiratory distress, No accessory muscle use Cardiovascular Exam: Normal Neurological Exam: Normal Respiratory Course/Dx - Course Course Of Treatment: This is an upper respiratory tract infection. Because he is chronically immune suppressed, I am going to treat him with antibiotics as well as cough medication. I'm prescribing Z-Jose Manuel and Cheratussin which he has requested. - Differential Dx/Diagnosis Provider Diagnosis: URI (upper respiratory infection) Discharge ED - Sign-Out/Discharge Documenting (check all that apply): Patient Departure All imaging exams completed and their final reports reviewed: No Studies - Discharge Plan Condition: Stable Disposition: HOME Referrals: Jason Chaudhary MD [Primary Care Provider] - - Billing Disposition and Condition Condition: STABLE Disposition: Home - Attestation Statements Document Initiated by Scribe: No
[2019-03-16 16:32] LABS: Influenza A Molecular NEGATIVE (Negative); Influenza B Molecular NEGATIVE (Negative)
== END 2019-03-16 16:36 | disposition home or self-care (01) ==
LOC: UCEAST 14:51
DX: J06.9 Acute upper respiratory infection, unspecified (principal); E11.9 Type 2 diabetes mellitus without complications; I10 Essential (primary) hypertension; I50.9 Heart failure, unspecified; Z88.5 Allergy status to narcotic agent; Z91.040 Latex allergy status; Z79.899 Other long term (current) drug therapy
CPT/HCPCS: 99212; G0463

== ENCOUNTER 2019-05-01 16:57 | Emergency (ER) | payer MEDICARE, BC ==
[2019-05-01] MEDS ORDERED: NS 0.9% 1000 ML** 2,000 ML IV ONE (17:06)
--- NOTE | 2019-05-01 17:09 | ED ---
HPI Diabetic - HPI Summary HPI Summary: This pt is a 69 y/o male, with hx of type 1 DM on insulin pump, presenting to [facility] via EMS for increased blood sugar. Pt reports he was at home working when he began to feel weak. Denies chest pain, cough, SOB, fever, diarrhea, constipation. He notes his blood sugar was above 500 and gave himself 12.5 units of Humalog. Per EMS, repeat blood glucose was 454. Pt reports he has been having polydipsia and polyuria. - History Of Current Complaint Time Seen by Provider: 05/01/19 17:03 Hx Obtained From: Patient Onset/Duration: Sudden Onset, Still Present Timing: Constant Severity Currently: Moderate Character: Alert Aggravating: Nothing Alleviating: Nothing Associated Signs & Symptoms: Polydipsia, Polyuria Related History: DM I, Insulin Pump - Allergies/Home Medications Allergies/Adverse Reactions: Allergies Allergy/AdvReac Type Severity Reaction Status Date / Time latex Allergy Rash/IRRITA Verified 03/16/19 15:18 TION meperidine [From Demerol] Allergy NIGHTMARES/ Verified 03/16/19 15:18 CHILLS/SWEA TS PMH/Surg Hx/FS Hx/Imm Hx Endocrine/Hematology History: Reports: Hx Diabetes - 1 Denies: Hx Anticoagulant Therapy - Plavix., Hx Thyroid Disease, Hx Anemia Cardiovascular History: Reports: Hx Angina, Hx Coronary Artery Disease, Hx Hypercholesterolemia, Hx Hypertension, Hx Myocardial Infarction, Other Cardiovascular Problems/Disorders - DIABETIC Denies: Hx Congestive Heart Failure, Hx Deep Vein Thrombosis, Hx Pacemaker/ ICD Respiratory History: Reports: Hx Seasonal Allergies Denies: Hx Asthma, Hx Chronic Obstructive Pulmonary Disease (COPD), Hx Lung Cancer, Hx Pneumonia, Hx Pulmonary Embolism GI History: Denies: Hx Gall Bladder Disease, Hx Gastrointestinal Bleed, Hx Jaundice, Hx Ulcer, Hx Urosepsis History: Denies: Hx Kidney Stones, Hx Renal Disease Musculoskeletal History: Reports: Other Musculoskeletal History - MENISCAL TEAR LEFT KN EE Sensory History: Reports: Hx Cataracts, Hx Contacts or Glasses, Hx Vision Problem - vision getting poorer d/t diabetes Denies: Hx Hearing Aid, Other Sensory Impairments Opthamlomology History: Reports: Hx Cataracts, Hx Contacts or Glasses, Hx Vision Problem - vision getting poorer d/t diabetes Denies: Other Sensory Impairments Neurological History: Reports: Other Neuro Impairments/Disorders - TAKING RITALIN TO STAY FOCUS Denies: Hx Dementia, Hx Migraine, Hx Seizures, Hx Transient Ischemic Attacks (TIA) Psychiatric History: Reports: Hx Anxiety, Hx Depression Denies: Hx Panic Disorder, Hx Schizophrenia, Hx Bipolar Disorder - Cancer History Cancer Type, Location and Year: SKIN REMOVED - Surgical History Surgical History: Yes Surgery Procedure, Year, and Place: 2009 LEFT KNEE ARTHROSCOPY-[facility]IGGER FINGER RELEASE/2006 CATARACT REPAIR,[facility] APPENDECTOM[facility], BYPASS SURGERY 30 YEARS AGO [facility]. BILATERAL CARPAL TUNNEL SURGERY, [facility]. 2009 LEFT KNEE ARTHROSCOPY, [facility]. 2010 LEFT EYE VITRECTOMY, [place]. LASER EYE SURGERY Hx Anesthesia Reactions: No Infectious Disease History: No Infectious Disease History: Reports: Hx Shingles - treated Denies: Hx Hepatitis, Hx Human Immunodeficiency Virus (HIV), Traveled Outside the [place] in Last 30 Days - Family History Known Family History: Positive: Cardiac Disease, Hypertension - Social History Alcohol Use: Occasionally Substance Use Type: Reports: None Hx Tobacco Use: Yes Smoking Status (MU): Former Smoker Type: Cigarettes Have You Smoked in the Last Year: No Review of Systems Constitutional: Other - POSITIVE: polydipsia, polyuria Negative: Fever Negative: Chest Pain Negative: Shortness Of Breath, Cough Negative: Diarrhea, Other - NEGATIVE: constipation Positive: Weakness All Other Systems Reviewed And Are Negative: Yes Physical Exam - Summary Physical Exam Summary: VITAL SIGNS: Reviewed. GENERAL: Patient is a well-developed and nourished male who is lying comfortable in the stretcher. Patient is not in any acute respiratory distress. HEAD AND FACE: No signs of trauma. No ecchymosis, hematomas or skull depressions. No sinus tenderness. EYES: PERRLA, EOMI x 2, No injected conjunctiva, no nystagmus. EARS: Hearing grossly intact. Ear canals and tympanic membranes are within normal limits. MOUTH: Oropharynx within normal limits. Dry oral mucosa. NECK: Supple, trachea is midline, no adenopathy, no JVD, no carotid bruit, no c- spine tenderness, neck with full ROM. CHEST: Symmetric, no tenderness at palpation LUNGS: Clear to auscultation bilaterally. No wheezing or crackles. CVS: Regular rate and rhythm, S1 and S2 present, no murmurs or gallops appreciated. ABDOMEN: Soft, non-tender. No signs of distention. No rebound, no guarding, and no masses palpated. Bowel sounds are normal. EXTREMITIES: FROM in all major joints, no edema, no cyanosis or clubbing. NEURO: Alert and oriented x 3. No acute neurological deficits. Speech is normal and follows commands. SKIN: Dry and warm Triage Information Reviewed: Yes Vital Signs On Initial Exam: Initial Vitals Temp Pulse Resp BP Pulse Ox 98.5 F 60 12 121/65 96 05/01/19 17:00 05/01/19 17:00 05/01/19 17:00 05/01/19 17:00 05/01/19 17:00 Vital Signs Reviewed: Yes Diagnostics - Vital Signs Vital Signs Temp Pulse Resp BP Pulse Ox 05/01/19 17:00 98.5 F 60 12 121/65 96 - Laboratory Result Diagrams: 05/01/19 17:30 05/01/19 17:30 Lab Statement: Any lab studies that have been ordered have been reviewed, and results considered in the medical decision making process. - Radiology Chest XR Radiology Interpretation Completed By: Radiologist Summary of Radiographic Findings: IMPRESSION: No evidence for acute intrathoracic disease. Dr. Serna has reviewed this report. Re-Evaluation - Re-Evaluation First Eval Re-Evaluation Time: 17:08 Comment: Fingerstick blood glucose is 386. Diabetic Course/Dx - Course Assessment/Plan: This pt is a 69 y/o male, with hx of type 1 DM on insulin pump , presenting to [facility] via EMS for increased blood sugar. Pt reports he was at home working when he began to feel weak. Denies chest pain, cough, SOB, fever, diarrhea, constipation. He notes his blood sugar was above 500 and gave himself 12.5 units of Humalog. Per EMS, repeat blood glucose was 454. Pt reports he has been having polydipsia and polyuria. Blood test results without any significant abnormality except for slight anemia, sodium 134, glucose 276, lactic acid is 2.6, and total protein 5.5. Urinalysis is negative for UTI. In the ED course the patient was given 2 L of IV fluids and she was given insulin 8 units. Finger stick is 60 therefore the patient was eating and drinking. The patient feels better. FS before discharge is 90. I discussed all the findings and test results with the patient. Patient was instructed to return to the emergency room immediately if any of the symptoms return worsens. Plan of care was discussed with the patient and understands and agrees. All questions were answered at patient satisfaction. There were no further complaints or concerns. Lung exam before discharge: CTA B/L. Good air exchange. No wheezing or crackles heard. CVS: S1 and S2 present. No murmurs appreciated. Patient is alert and oriented x 3. Patient is hemodynamically stable. Patient will be discharged home with follow up from his PCP in the next 2-3 days. - Diagnoses Differential Dx: Diabetic Ketoacidosis, Hyperglycemia Provider Diagnoses: Uncontrolled diabetes mellitus, Hyperglycemia Discharge ED - Sign-Out/Discharge Documenting (check all that apply): Patient Departure - Discharge home - Discharge Plan Condition: Stable Disposition: HOME Patient Education Materials: Diabetic Hyperglycemia (ED) Referrals: Jason Chaudhary MD [Primary Care Provider] - Additional Instructions: FOLLOW UP WITH YOUR PRIMARY CARE PROVIDER IN 2-3 DAYS. RETURN TO THE ED FOR ANY NEW OR WORSENING SYMPTOMS. - Billing Disposition and Condition Condition: STABLE Disposition: Home - Attestation Statements Document Initiated by Jami: Yes Documenting Otiiloibe: Dora Krause Provider For Whom Jami is Documenting (Include Credential): Geovany Serna MD Scribe Attestation: Dora Arrieta scribed for Geovany Serna MD on 05/01/19 at 2146. Scribe Documentation Reviewed: Yes Provider Attestation: The documentation as recorded by the Dora messina accurately reflects the service I personally performed and the decisions made by me, Geovany Serna MD Status of Scribe Document: Viewed
[2019-05-01 17:32] LABS: Urine Appearance Clear; Urine Bilirubin Negative (Negative); Urine Blood Negative (Negative); Urine Color Yellow; Urine Glucose 3+(>=500 mg/dL) (Negative); Urine Ketones Negative (Negative); Urine Nitrite Negative (Negative); Urine Protein Negative (Negative); Urine Specific Gravity 1.021 (1.010-1.030); Urine Urobilinogen Negative (Negative)
[2019-05-01 17:47] LABS: ABS Lymphocytes 0.7 10^3/ul (1.0-4.8); ABS Monocytes 0.3 10^3/ul (0-0.8); ABS Neutrophils 6.7 10^3/ul (1.5-7.7); Eosinophil % 0.3 %; Hematocrit 37 % (42-52); Hemoglobin 12.4 g/dL (14.0-18.0); Lymphocyte % 9.4 %; Mean Corpuscular HGB Conc 33 g/dL (31-36); Mean Corpuscular Hemoglobin 29 pg (27-31); Mean Corpuscular Volume 86 fL (80-94); Mean Platelet Volume 7.9 fL (7.4-10.4); Platelet Count 179 10^3/uL (150-450); Red Blood Count 4.34 10^6 /uL (4.18-5.48); Red Cell Distribution Width 14 % (10-15); White Blood Count 7.7 10^3/uL (3.5-10.8)
[2019-05-01 17:57] LABS: ALT 13 U/L (7-52); AST 9 U/L (13-39); Albumin 3.9 g/dL (3.2-5.2); Albumin/Globulin Ratio 2.4 (1-3); Alkaline Phosphatase 76 U/L (34-104); Anion Gap 6 mmol/L (2-11); BUN/Creatinine Ratio 29.6 (8-20); Blood Urea Nitrogen 24 mg/dL (6-24); C Reactive Protein 1.67 mg/L (<8.01); CO2 Carbon Dioxide 27 mmol/L (22-32); Calcium 8.6 mg/dL (8.6-10.3); Chloride 101 mmol/L (101-111); Creatine Kinase 71 U/L (10-223); EGFR Non-African American 95.1 (>60); Globulin 1.6 g/dL (2-4); Glucose 276 mg/dL (70-100); Potassium 3.6 mmol/L (3.5-5.0); Sodium 134 mmol/L (135-145); Total Protein 5.5 g/dL (6.4-8.9)
[2019-05-01] MEDS ORDERED: Insulin REGULAR(*) 1 UNITS UNIT IV PUSH ONE (18:08)
[2019-05-01 18:22] LABS: Alcohol < 10 mg/dL (<10)
[2019-05-01 21:22] VITALS: BP 116/64
== END 2019-05-01 20:50 | disposition home or self-care (01) ==
LOC: ED 16:57
DX: E10.65 Type 1 diabetes mellitus with hyperglycemia (principal); I25.10 Atherosclerotic heart disease of native coronary artery without angina pectoris; I10 Essential (primary) hypertension; E78.00 Pure hypercholesterolemia, unspecified; I25.2 Old myocardial infarction; F41.9 Anxiety disorder, unspecified; F32.9 Major depressive disorder, single episode, unspecified; Z90.89 Acquired absence of other organs; Z98.84 Bariatric surgery status; Z87.891 Personal history of nicotine dependence; Z79.4 Long term (current) use of insulin; Z96.41 Presence of insulin pump (external) (internal); Z79.899 Other long term (current) drug therapy; Z88.5 Allergy status to narcotic agent; Z91.040 Latex allergy status
CPT/HCPCS: 36415; 71045; 80053; 80320; 81003; 82550; 82803; 83605; 83735; 85025; 86140; 96360; 99283; G0480

== ENCOUNTER 2019-09-08 14:52 | Inpatient (IN) ==
[2019-09-08] MEDS ORDERED: NS 0.9% 1000 ml BAG 1,000 ML IV ONE ×2 (15:22→16:12)
[2019-09-08 15:48] LABS: ABS Lymphocytes 0.7 10^3/ul (1.0-4.8); ABS Monocytes 0.3 10^3/ul (0-0.8); Eosinophil % 0.1 %; Hematocrit 41 % (42-52); Lymphocyte % 8.7 %; Mean Corpuscular HGB Conc 34 g/dL (31-36); Mean Corpuscular Hemoglobin 29 pg (27-31); Mean Corpuscular Volume 86 fL (80-94); Mean Platelet Volume 8.1 fL (7.4-10.4); Platelet Count 196 10^3/uL (150-450); Red Blood Count 4.83 10^6 /uL (4.18-5.48); Red Cell Distribution Width 14 % (10-15); White Blood Count 8.3 10^3/uL (3.5-10.8)
[2019-09-08 15:55] LABS: Urine Appearance Clear; Urine Bilirubin Negative (Negative); Urine Blood Negative (Negative); Urine Color Yellow; Urine Glucose 3+(>=500 mg/dL) (Negative); Urine Ketones Negative (Negative); Urine Nitrite Negative (Negative); Urine Protein Negative (Negative); Urine Urobilinogen Negative (Negative)
[2019-09-08 16:05] LABS: ALT 19 U/L (7-52); AST 14 U/L (13-39); Albumin 4.6 g/dL (3.2-5.2); Albumin/Globulin Ratio 2.2 (1-3); Alkaline Phosphatase 105 U/L (34-104); Anion Gap 9 mmol/L (2-11); BUN/Creatinine Ratio 19.8 (8-20); Blood Urea Nitrogen 20 mg/dL (6-24); CO2 Carbon Dioxide 27 mmol/L (22-32); Calcium 9.3 mg/dL (8.6-10.3); Chloride 93 mmol/L (101-111); EGFR African American 89.2 (>60); EGFR Non-African American 73.7 (>60); Globulin 2.1 g/dL (2-4); Potassium 4.9 mmol/L (3.5-5.0); Sodium 129 mmol/L (135-145); Total Protein 6.7 g/dL (6.4-8.9)
[2019-09-08 16:10] LABS: Urine Benzodiazepine Screen None Detected (None Detect); Urine Opiates Screen None Detected (None Detect)
[2019-09-08 16:11] LABS: Glucose 526 mg/dL (70-100)
[2019-09-08] MEDS ORDERED: Insulin REGULAR 100 unit/ml(*) IV PUSH ONE ×2 (16:12→16:13)
[2019-09-08 16:17] LABS: Alcohol, S < 10 mg/dL (<10)
[2019-09-08 16:32] LABS: TSH (Thyroid Stimulating Horm) 1.39 mcIU/mL (0.34-5.60)
[2019-09-08 21:06] LABS: Uric Acid 4.8 mg/dL (4.4-7.6)
[2019-09-08] MEDS: Methylphenidate ER 18 mg TAB PO SCH (22:45)
[2019-09-08] MEDS: Insulin LISPRO 100 units/ml(*) SUBCUT SCH (22:56)
[2019-09-08] MEDS: Insulin GLARGINE 100 un/ml (*) 10 ml VIAL SUBCUT SCH (22:57)
[2019-09-09 06:50] LABS: BUN/Creatinine Ratio 17.9 (8-20); Calcium 8.8 mg/dL (8.6-10.3); EGFR African American 120.1 (>60); EGFR Non-African American 99.3 (>60); Potassium 3.7 mmol/L (3.5-5.0)
[2019-09-09] MEDS ORDERED: Dextrose 50% Syringe 50 ml 25 GM/50 ML SYRINGE IV PUSH PRN (07:01)
[2019-09-09] MEDS: Insulin LISPRO 100 units/ml(*) SUBCUT SCH ×7 (07:42→21:05)
[2019-09-09] MEDS: Methylphenidate ER 18 mg TAB PO SCH (08:58)
[2019-09-09] MEDS: Enoxaparin 40 MG/0.4 ML SYR(*) SUBCUT SCH (09:00)
[2019-09-09] MEDS: Aspirin EC 81 mg TAB.EC (enteric coated) PO SCH (09:00)
[2019-09-09] MEDS: Insulin GLARGINE 100 un/ml (*) 10 ml VIAL SUBCUT SCH ×3 (09:01→21:10)
[2019-09-10 07:05] LABS: BUN/Creatinine Ratio 18.1 (8-20); EGFR African American 111.8 (>60); EGFR Non-African American 92.4 (>60); Potassium 4.3 mmol/L (3.5-5.0)
[2019-09-10] MEDS: Insulin LISPRO 100 units/ml(*) SUBCUT SCH ×6 (07:54→17:37)
[2019-09-10] MEDS: Enoxaparin 40 MG/0.4 ML SYR(*) SUBCUT SCH (09:14)
[2019-09-10] MEDS: Methylphenidate ER 18 mg TAB PO SCH (09:14)
[2019-09-10] MEDS: Aspirin EC 81 mg TAB.EC (enteric coated) PO SCH (09:15)
[2019-09-10] MEDS: Insulin GLARGINE 100 un/ml (*) 10 ml VIAL SUBCUT SCH ×2 (09:16→21:56)
[2019-09-11] MEDS: Insulin LISPRO 100 units/ml(*) SUBCUT SCH ×8 (00:17→20:38)
[2019-09-11 06:41] LABS: BUN/Creatinine Ratio 20.3 (8-20); Calcium 8.8 mg/dL (8.6-10.3); EGFR African American 118.4 (>60); EGFR Non-African American 97.8 (>60); Potassium 4.1 mmol/L (3.5-5.0)
[2019-09-11] MEDS: Aspirin EC 81 mg TAB.EC (enteric coated) PO SCH (08:50)
[2019-09-11] MEDS: Enoxaparin 40 MG/0.4 ML SYR(*) SUBCUT SCH (08:50)
[2019-09-11] MEDS: Insulin GLARGINE 100 un/ml (*) 10 ml VIAL SUBCUT SCH ×2 (08:52→20:36)
[2019-09-11] MEDS: Methylphenidate ER 18 mg TAB PO SCH (11:23)
[2019-09-12] MEDS ORDERED: Insulin LISPRO 100 units/ml(*) SUBCUT SCH (07:30)
[2019-09-12] MEDS: Insulin GLARGINE 100 un/ml (*) 10 ml VIAL SUBCUT SCH ×2 (08:37→20:55)
[2019-09-12] MEDS: Insulin LISPRO 100 units/ml(*) SUBCUT SCH ×3 (08:37→17:23)
[2019-09-12] MEDS: Methylphenidate ER 18 mg TAB PO SCH (08:39)
[2019-09-12] MEDS: Enoxaparin 40 MG/0.4 ML SYR(*) SUBCUT SCH (08:39)
[2019-09-12] MEDS: Aspirin EC 81 mg TAB.EC (enteric coated) PO SCH (08:40)
[2019-09-12] MEDS: Nystatin TOP POWDER 15 GM BTL TOPICAL SCH (20:55)
[2019-09-13] MEDS ORDERED: Insulin LISPRO 100 units/ml(*) SUBCUT SCH (07:30)
[2019-09-13] MEDS: Methylphenidate ER 18 mg TAB PO SCH (07:56)
[2019-09-13] MEDS: Aspirin EC 81 mg TAB.EC (enteric coated) PO SCH (07:57)
[2019-09-13] MEDS: Enoxaparin 40 MG/0.4 ML SYR(*) SUBCUT SCH (07:58)
[2019-09-13] MEDS ORDERED: Insulin GLARGINE 100 un/ml (*) 10 ml VIAL SUBCUT SCH (08:00)
[2019-09-13] MEDS: Nystatin TOP POWDER 15 GM BTL TOPICAL SCH (08:12)
[2019-09-13 11:50] VITALS: BP 129/60
[2019-09-13] MEDS ORDERED: Insulin LISPRO 100 units/ml(*) SUBCUT ONE ×2 (12:23→13:00)
== END 2019-09-13 12:30 | DRG 638 ==
LOC: ED 14:52 → MED 20:18
PROVIDERS: ADMIT Internal Medicine; ATTEND Internal Medicine

== ENCOUNTER 2020-03-14 09:25 | Observation (INO) ==
[2020-03-14 09:59] LABS: ABS Eosinophils 0.1 10^3/ul (0-0.6); ABS Lymphocytes 0.9 10^3/ul (1.0-4.8); ABS Monocytes 0.4 10^3/ul (0-0.8); ABS Neutrophils 9.9 10^3/ul (1.5-7.7); Eosinophil % 0.5 %; Hematocrit 40 % (42-52); Hemoglobin 13.4 g/dL (14.0-18.0); Mean Corpuscular HGB Conc 33 g/dL (31-36); Mean Corpuscular Hemoglobin 29 pg (27-31); Mean Corpuscular Volume 86 fL (80-94); Mean Platelet Volume 8.3 fL (7.4-10.4); Platelet Count 169 10^3/uL (150-450); Red Blood Count 4.66 10^6 /uL (4.18-5.48); Red Cell Distribution Width 14 % (10-15); White Blood Count 11.3 10^3/uL (3.5-10.8)
[2020-03-14 10:13] LABS: ALT 40 U/L (7-52); Albumin 3.9 g/dL (3.2-5.2); Albumin/Globulin Ratio 1.7 (1-3); Alkaline Phosphatase 92 U/L (34-104); BUN/Creatinine Ratio 23.7 (8-20); Blood Urea Nitrogen 18 mg/dL (6-24); C Reactive Protein < 1.00 mg/L (<8.01); CO2 Carbon Dioxide 31 mmol/L (22-32); Chloride 95 mmol/L (101-111); EGFR African American 123.4 (>60); Globulin 2.3 g/dL (2-4); Glucose 332 mg/dL (70-100); Sodium 130 mmol/L (135-145); Total Protein 6.2 g/dL (6.4-8.9)
[2020-03-14 10:17] LABS: Anion Gap 4 mmol/L (2-11)
[2020-03-14] MEDS: NS 0.9% 1000 ml BAG 1,000 ML IV ONE ×2 (10:40→12:12)
[2020-03-14] MEDS ORDERED: Dextrose 50% Syringe 50 ml 25 GM/50 ML SYRINGE IV PUSH PRN (15:25)
[2020-03-14 17:52] LABS: Potassium Redraw 4.4 mmol/L (3.5-5.0)
[2020-03-14 18:06] LABS: BUN/Creatinine Ratio 19.2 (8-20); Calcium 8.6 mg/dL (8.6-10.3); EGFR African American 129.3 (>60); EGFR Non-African American 106.8 (>60); Potassium 4.3 mmol/L (3.5-5.0)
[2020-03-14 19:36] LABS: Urine Appearance Clear; Urine Bilirubin Negative (Negative); Urine Blood Negative (Negative); Urine Color Yellow; Urine Glucose 3+(>=500 mg/dL) (Negative); Urine Ketones Negative (Negative); Urine Nitrite Negative (Negative); Urine Protein Negative (Negative); Urine Urobilinogen Negative (Negative)
[2020-03-14] MEDS: Heparin 5000 UNITS/ML 1 mL VIAL SUBCUT SCH (21:37)
[2020-03-15 06:31] LABS: ABS Eosinophils 0.1 10^3/ul (0-0.6); ABS Lymphocytes 1.4 10^3/ul (1.0-4.8); ABS Monocytes 0.4 10^3/ul (0-0.8); ABS Neutrophils 6.3 10^3/ul (1.5-7.7); Hematocrit 37 % (42-52); Hemoglobin 12.5 g/dL (14.0-18.0); Lymphocyte % 17.3 %; Mean Corpuscular HGB Conc 34 g/dL (31-36); Mean Corpuscular Hemoglobin 29 pg (27-31); Mean Corpuscular Volume 86 fL (80-94); Platelet Count 148 10^3/uL (150-450); Red Blood Count 4.29 10^6 /uL (4.18-5.48); Red Cell Distribution Width 14 % (10-15); White Blood Count 8.3 10^3/uL (3.5-10.8)
[2020-03-15 06:49] LABS: Albumin 3.5 g/dL (3.2-5.2); Albumin/Globulin Ratio 1.8 (1-3); BUN/Creatinine Ratio 16.9 (8-20); Calcium 8.6 mg/dL (8.6-10.3); EGFR African American 121.6 (>60); EGFR Non-African American 100.5 (>60); Globulin 1.9 g/dL (2-4); Potassium 4.8 mmol/L (3.5-5.0); Total Bilirubin 0.8 mg/dL (0.2-1.0); Total Protein 5.4 g/dL (6.4-8.9)
[2020-03-15 07:17] LABS: TSH Ultra Thyroid Stim Horm 1.39 mcIU/mL (0.34-5.60)
[2020-03-15] MEDS ORDERED: Insulin GLARGINE 100 un/ml 10 ml VIAL SUBCUT SCH (09:00)
[2020-03-15] MEDS: Heparin 5000 UNITS/ML 1 mL VIAL SUBCUT SCH ×2 (09:28→19:57)
[2020-03-15] MEDS: Aspirin EC 81 mg TAB.EC (enteric coated) PO SCH (09:28)
[2020-03-15] MEDS ORDERED: Ondansetron ODT 4 mg TAB 4 MG TAB SL PRN (10:10)
[2020-03-15] MEDS ORDERED: Insulin GLARGINE 100 un/ml 10 ml VIAL SUBCUT ONE (10:12)
[2020-03-16] MEDS: Aspirin EC 81 mg TAB.EC (enteric coated) PO SCH (09:09)
[2020-03-16] MEDS: Insulin GLARGINE 100 un/ml 10 ml VIAL SUBCUT SCH (09:09)
[2020-03-16] MEDS: Heparin 5000 UNITS/ML 1 mL VIAL SUBCUT SCH ×2 (09:09→20:13)
[2020-03-17] MEDS: Aspirin EC 81 mg TAB.EC (enteric coated) PO SCH (09:40)
[2020-03-17] MEDS: Insulin GLARGINE 100 un/ml 10 ml VIAL SUBCUT SCH (09:42)
[2020-03-17] MEDS: Heparin 5000 UNITS/ML 1 mL VIAL SUBCUT SCH (09:42)
[2020-03-17 10:37] VITALS: BP 101/68
== END 2020-03-17 13:30 ==
LOC: MED 09:25 → ED 09:25 → MED 17:22
PROVIDERS: ADMIT Internal Medicine; ATTEND Pediatrics

== ENCOUNTER 2021-04-14 18:02 | Inpatient (IN) ==
[2021-04-14 19:02] LABS: ABS Basophils 0.1 10^3/ul (0-0.2); ABS Lymphocytes 2.8 10^3/ul (1.0-4.8); ABS Monocytes 0.9 10^3/ul (0-0.8); ABS Neutrophils 15.1 10^3/ul (1.5-7.7); Eosinophil % 0.2 %; Hematocrit 41 % (42-52); Hemoglobin 13.4 g/dL (14.0-18.0); Lymphocyte % 14.9 %; Mean Corpuscular HGB Conc 33 g/dL (31-36); Mean Corpuscular Hemoglobin 27 pg (27-31); Mean Corpuscular Volume 83 fL (80-94); Mean Platelet Volume 8.1 fL (7.4-10.4); Platelet Count 281 10^3/uL (150-450); Red Blood Count 4.94 10^6 /uL (4.18-5.48); Red Cell Distribution Width 14 % (10-15); White Blood Count 18.9 10^3/uL (3.5-10.8)
[2021-04-14 19:31] LABS: ALT 46 U/L (7-52); AST 28 U/L (13-39); Albumin/Globulin Ratio 1.5 (1-3); Alkaline Phosphatase 170 U/L (35-149); Anion Gap 10 mmol/L (2-11); Blood Urea Nitrogen 43 mg/dL (6-24); C Reactive Protein 13.53 mg/L (<8.01); CO2 Carbon Dioxide 29 mmol/L (22-32); Calcium 9.8 mg/dL (8.6-10.3); Chloride 106 mmol/L (101-111); Globulin 2.6 g/dL (2-4); Glucose 113 mg/dL (70-100); Magnesium 2.1 mg/dL (1.9-2.7); Potassium 3.4 mmol/L (3.5-5.0); Sodium 145 mmol/L (135-145); Total Protein 6.6 g/dL (6.4-8.9); eGFR CKD-EPI 81.5 (>60)
[2021-04-14] MEDS ORDERED: NS 0.9% 1000 ml BAG 1,000 ML IV ONE (19:48)
[2021-04-14] MEDS ORDERED: Piperacillin/Tazobac ADVAN 3.375 GM in NS 0.9% 100 ml BAG 100 ML IV ONE (19:48)
[2021-04-14 20:43] LABS: Troponin I 0.06 ng/mL (<0.03)
[2021-04-14 21:24] LABS: Urine Appearance Cloudy; Urine Bilirubin Negative (Negative); Urine Blood 2+ (Negative); Urine Color Yellow; Urine Glucose 2+(150 mg/dL) (Negative); Urine Ketones Trace (Negative); Urine Nitrite Negative (Negative); Urine Protein Negative (Negative); Urine Specific Gravity 1.028 (1.002-1.030); Urine Urobilinogen Negative (Negative)
[2021-04-14 21:35] LABS: Urine Bacteria Absent (Absent); Urine Red Blood Cell 3+(>10/hpf) (Absent); Urine White Blood Cell 3+(>20/hpf) (Absent)
[2021-04-14] MEDS ORDERED: Ondansetron 4 mg VIAL 2 MG/ML 2 ml VIAL IV ONE (23:45)
[2021-04-15 00:01] LABS: Troponin I 0.06 ng/mL (<0.03)
[2021-04-15] MEDS ORDERED: Dextrose 50% Syringe 50 ml 25 GM/50 ML SYRINGE IV PUSH PRN ×2 (00:35→04:44)
[2021-04-15] MEDS ORDERED: cefTRIAXone 1 GM/50 ML PREMIX.BAG IV ONE (02:00)
[2021-04-15] MEDS ORDERED: Iodixanol (CONTRAST) 320 MG/ML 100 ML SDV IV ONE (02:24)
[2021-04-15 03:33] LABS: ABS Lymphocytes 1.6 10^3/ul (1.0-4.8); ABS Monocytes 0.4 10^3/ul (0-0.8); ABS Neutrophils 12.5 10^3/ul (1.5-7.7); Eosinophil % 0.3 %; Hematocrit 36 % (42-52); Hemoglobin 11.5 g/dL (14.0-18.0); Lymphocyte % 10.9 %; Mean Corpuscular HGB Conc 32 g/dL (31-36); Mean Corpuscular Hemoglobin 27 pg (27-31); Mean Corpuscular Volume 85 fL (80-94); Mean Platelet Volume 8.4 fL (7.4-10.4); Platelet Count 194 10^3/uL (150-450); Red Cell Distribution Width 14 % (10-15); White Blood Count 14.6 10^3/uL (3.5-10.8)
[2021-04-15 03:50] LABS: Albumin 3.1 g/dL (3.2-5.2); Albumin/Globulin Ratio 1.4 (1-3); Calcium 8.3 mg/dL (8.6-10.3); Globulin 2.2 g/dL (2-4); Total Bilirubin 0.9 mg/dL (0.2-1.0); Total Protein 5.3 g/dL (6.4-8.9); eGFR CKD-EPI 87.8 (>60)
[2021-04-15 04:09] LABS: Troponin I 0.05 ng/mL (<0.03)
[2021-04-15] MEDS: KCL 20 MEQ/100 ML IVPREMIX 20 MEQ/100 ML BAG IV SCH ×2 (04:55→08:21)
[2021-04-15] MEDS: Enoxaparin 40 MG/0.4 ML SYR SUBCUT SCH (06:41)
[2021-04-15 07:05] LABS: Calcium 8.5 mg/dL (8.6-10.3); Potassium 3.7 mmol/L (3.5-5.0); eGFR CKD-EPI 79.6 (>60)
[2021-04-15] MEDS: Insulin GLARGINE 100 un/ml 10 ml VIAL SUBCUT SCH (09:41)
[2021-04-15] MEDS: Aspirin EC 81 mg TAB.EC (enteric coated) PO SCH (09:42)
[2021-04-15] MEDS: Polyethylene Glycol 3350 17 GM PACKET PO SCH (17:32)
[2021-04-15] MEDS ORDERED: Insulin GLARGINE 100 un/ml 10 ml VIAL SUBCUT SCH (21:00)
[2021-04-15] MEDS: Senna TAB 8.6 mg TAB PO SCH (21:38)
[2021-04-16] MEDS: cefTRIAXone 1 gm/50 mL NS BAG 1 GM/50 ML BAG IVPB SCH (02:41)
[2021-04-16] MEDS: Enoxaparin 40 MG/0.4 ML SYR SUBCUT SCH (06:01)
[2021-04-16 06:15] LABS: ABS Basophils 0.1 10^3/ul (0-0.2); ABS Eosinophils 0.1 10^3/ul (0-0.6); ABS Lymphocytes 1.8 10^3/ul (1.0-4.8); ABS Monocytes 0.4 10^3/ul (0-0.8); ABS Neutrophils 8.3 10^3/ul (1.5-7.7); Hematocrit 37 % (42-52); Lymphocyte % 17.1 %; Mean Corpuscular HGB Conc 33 g/dL (31-36); Mean Corpuscular Hemoglobin 28 pg (27-31); Mean Corpuscular Volume 84 fL (80-94); Nucleated Red Blood Cells % 0.1; Platelet Count 215 10^3/uL (150-450); Red Blood Count 4.36 10^6 /uL (4.18-5.48); Red Cell Distribution Width 14 % (10-15); White Blood Count 10.7 10^3/uL (3.5-10.8)
[2021-04-16 06:31] LABS: Calcium 8.6 mg/dL (8.6-10.3); Potassium 3.6 mmol/L (3.5-5.0); eGFR CKD-EPI 94.1 (>60)
[2021-04-16] MEDS: Insulin GLARGINE 100 un/ml 10 ml VIAL SUBCUT SCH (08:57)
[2021-04-16] MEDS ORDERED: Potassium Chlor 20 meq TAB.ER PO ONE (08:58)
[2021-04-16] MEDS: Polyethylene Glycol 3350 17 GM PACKET PO SCH (08:58)
[2021-04-16] MEDS: Aspirin EC 81 mg TAB.EC (enteric coated) PO SCH (09:00)
[2021-04-16] MEDS ORDERED: Lactated Ringers 500 ml BAG 500 ML IV ONE (09:15)
[2021-04-16] MEDS: Senna TAB 8.6 mg TAB PO SCH (22:27)
[2021-04-17] MEDS: cefTRIAXone 1 gm/50 mL NS BAG 1 GM/50 ML BAG IVPB SCH (03:54)
[2021-04-17 04:51] LABS: Venous Bicarbonate HCO3 28.5 mmol/L (24-28)
[2021-04-17 05:10] LABS: ABS Eosinophils 0.1 10^3/ul (0-0.6); ABS Lymphocytes 1.8 10^3/ul (1.0-4.8); ABS Monocytes 0.4 10^3/ul (0-0.8); ABS Neutrophils 6.3 10^3/ul (1.5-7.7); Eosinophil % 1.7 %; Hematocrit 35 % (42-52); Hemoglobin 11.6 g/dL (14.0-18.0); Lymphocyte % 21.2 %; Mean Corpuscular HGB Conc 33 g/dL (31-36); Mean Corpuscular Hemoglobin 28 pg (27-31); Mean Corpuscular Volume 84 fL (80-94); Mean Platelet Volume 8.3 fL (7.4-10.4); Nucleated Red Blood Cells % 0.1; Platelet Count 173 10^3/uL (150-450); Red Blood Count 4.22 10^6 /uL (4.18-5.48); Red Cell Distribution Width 14 % (10-15); White Blood Count 8.7 10^3/uL (3.5-10.8)
[2021-04-17 05:23] LABS: Albumin 3.1 g/dL (3.2-5.2); Calcium 8.6 mg/dL (8.6-10.3); Magnesium 1.9 mg/dL (1.9-2.7); Potassium 3.8 mmol/L (3.5-5.0); Total Bilirubin 0.4 mg/dL (0.2-1.0)
[2021-04-17 05:29] LABS: Albumin/Globulin Ratio 1.5 (1-3); Globulin 2.1 g/dL (2-4); Total Protein 5.2 g/dL (6.4-8.9); eGFR CKD-EPI 96.9 (>60)
[2021-04-17] MEDS: Enoxaparin 40 MG/0.4 ML SYR SUBCUT SCH (05:49)
[2021-04-17] MEDS: Aspirin EC 81 mg TAB.EC (enteric coated) PO SCH (09:04)
[2021-04-17] MEDS: Insulin GLARGINE 100 un/ml 10 ml VIAL SUBCUT SCH (09:05)
[2021-04-17] MEDS: Polyethylene Glycol 3350 17 GM PACKET PO SCH (09:06)
[2021-04-17] MEDS: Senna TAB 8.6 mg TAB PO SCH (20:39)
[2021-04-18] MEDS: cefTRIAXone 1 gm/50 mL NS BAG 1 GM/50 ML BAG IVPB SCH (02:55)
[2021-04-18] MEDS: Enoxaparin 40 MG/0.4 ML SYR SUBCUT SCH (06:00)
[2021-04-18] MEDS: Insulin GLARGINE 100 un/ml 10 ml VIAL SUBCUT SCH (08:12)
[2021-04-18] MEDS: Aspirin EC 81 mg TAB.EC (enteric coated) PO SCH (08:12)
[2021-04-18] MEDS: Polyethylene Glycol 3350 17 GM PACKET PO SCH (08:19)
[2021-04-18] MEDS: Senna TAB 8.6 mg TAB PO SCH (21:42)
[2021-04-19] MEDS: cefTRIAXone 1 gm/50 mL NS BAG 1 GM/50 ML BAG IVPB SCH (02:17)
[2021-04-19] MEDS: Enoxaparin 40 MG/0.4 ML SYR SUBCUT SCH (06:04)
[2021-04-19] MEDS ORDERED: Insulin GLARGINE 100 un/ml 10 ml VIAL SUBCUT SCH (09:00)
[2021-04-19] MEDS: Aspirin EC 81 mg TAB.EC (enteric coated) PO SCH (09:04)
[2021-04-19] MEDS: Polyethylene Glycol 3350 17 GM PACKET PO SCH (09:08)
[2021-04-19 11:15] VITALS: BP 109/64
[2021-04-19 12:38] LABS: Rapid COVID-19 Molecular Undetected (Undetected)
== END 2021-04-19 12:30 | DRG 884 ==
LOC: ED 18:02 → EDHOLD 04-15 00:30 → SUATTDRO 04-15 00:30 → SSU 04-15 11:50
PROVIDERS: ADMIT Internal Medicine; ATTEND Internal Medicine